=== PATIENT | female | born 1940 | race Caucasian/White ===

== ENCOUNTER 2016-12-05 13:37 | Inpatient (IN) ==
[2016-12-05 15:07] LABS: BLOOD TYPE ARTERIAL; SAMPLE BLOOD
[2016-12-05 15:08] LABS: ALLEN TEST NO; BE 9.4 mmoll (-3.0-3.0); DRAW SITE R BRACHIAL; METHB 2.1 % (0.0-1.5); MODALITY CANNULA; O2(CT) 13.4 mL/dL (15.0-23.0); PCO2(98.6) 47 mmHg (35-45); PO2(98.6) 62 mmHg (60-100); SAO2 96.4 % (95.0-100.0); THB 10.2 g/dL (11.5-17.4); pH(98.6) 7.47 (7.35-7.45)
[2016-12-05 15:09] LABS: MANUAL DIFF NEEDED? NO
[2016-12-05 15:12] LABS: BASO% 0.4 % (0.0-0.8); EOS# 0.01 X1000 (0.0-0.7); EOS% 0.1 % (0.0-10.0); HEMATOCRIT 32.2 % (37.0-47.0); HEMOGLOBIN 10.1 g/dL (12.0-16.0); IMM GRAN# 0.24 X1000 (0.0-0.04); IMM GRAN% 3.3 % (0.0-0.5); LYMPH# 1.29 X1000 (1.2-3.4); LYMPH% 17.7 % (20.5-51.1); MCH 26.3 PG (27-31); MCHC 31.4 g/dL (33-37); MCV 83.9 FL (81-99); MONO% 13.7 % (1.7-9.3); MPV 8.8 FL (7.4-10.4); NEUT% 64.8 % (42.2-75.2); PLT 312 X1000 (130-400); RBC 3.84 XMIL (4.2-5.4)
[2016-12-05 15:21] LABS: INR 1.01; PROTIME 10.6 Seconds (9.2-11.7); PTT 28.5 Seconds (22.0-36.0)
[2016-12-05 15:26] LABS: URINE CULTURE NEEDED? NO; URINE MICRO REVIEW NEEDED? NO; URINE SOURCE CLEAN CATCH
[2016-12-05 15:28] LABS: BILIRUBIN URINE NEGATIVE (NEGATIVE); BLOOD URINE NEGATIVE (NEGATIVE); COLOR STRAW; GLUCOSE URINE NEGATIVE (NEGATIVE); LEUKOCYTES URINE NEGATIVE (NEGATIVE); NITRITE URINE NEGATIVE (NEGATIVE); PH URINE 6.5; PROTEIN URINE NEGATIVE (NEGATIVE); SP GRAVITY URINE 1.004; TURBIDITY URINE CLEAR (CLEAR); UROBILINOGEN URINE NORMAL (NORMAL)
[2016-12-05 15:30] LABS: UR EPITHELIAL CELLS <10 /HPF (<10); URINE BACTERIA NEGATIVE /HPF; URINE RBC <10 /HPF (<10); URINE WBC <10 /HPF (<10)
[2016-12-05 15:30] LABS: AGAP 11; ALBUMIN 3.3 g/dL (3.5-5.0); ALKALINE PHOSPHATASE 74 U/L (32-104); BUN 12 mg/dL (8-22); CALCIUM 9.3 mg/dL (8.8-10.2); CHLORIDE 98 mmol/L (98-107); CK PROFILE 26 U/L (24-173); COSMO 282; GOT 20 U/L (10-30); GPT 17 U/L (10-36); MAGNESIUM 1.9 mg/dL (1.5-2.7); POTASSIUM 3.4 mmol/L (3.5-5.1); SODIUM 140 mmol/L (136-145); TCO2 31 mmol/L (25-35); TOTAL BILIRUBIN 0.23 mg/dL (0.20-1.00); TOTAL PROTEIN 6.9 g/dL (6.3-8.3)
[2016-12-05] MEDS ORDERED: DUONEB (A & A) INH ONE (15:41)
[2016-12-05] MEDS ORDERED: SOLU-MEDROL IV ONE (15:41)
[2016-12-05] MEDS ORDERED: ROCEPHIN 1 GM/NS 1 GM/50 ML IVPB IV ONE (15:41)
--- NOTE | 2016-12-05 15:45 | Diag Imaging Result Document ---
PROCEDURE NAME: CHEST-2 VIEWS - 12/05/2016 PA AND LATERAL RADIOGRAPH OF THE CHEST: COMPARISON: 09/15/2016. FINDINGS: There is an infiltrate at the right lower lung zone and right mid lung zone suggesting edema, plus or minus pneumonia. There is no definite pleural fluid collection. Cardiac silhouette is grossly unremarkable. IMPRESSION: 1. Infiltrate at the right mid and lower lung zone as described. Follow-up chest radiograph is recommended. 2. Not mentioned above, there is stable focal pleural thickening at the right lung apex.
[2016-12-05] MEDS ORDERED: NORCO-7.5 PO ONE (15:57)
[2016-12-05] MEDS ORDERED: ZOFRAN IV ONE (15:57)
--- NOTE | 2016-12-05 16:47 | PROVIDER DOCUMENTATION ---
This chart was entered by Latoya Remy Scribe, acting as scribe for Sulema Bartlett MD. HPI-General Adult - General Chief Complaint: Cough Stated Complaint: PNEUMONIA SX Time Seen by Provider: 12/05/16 13:43 Source: patient Allergies/Adverse Reactions: Patient Allergies Allergy/AdvReac Type Severity Reaction Status Date / Time propoxyphene HCl * Allergy Mild NAUSEA/VOMI Verified 12/05/16 14:12 [From Darvon] TING ciprofloxacin [From Cipro] Allergy RASH Verified 12/05/16 14:12 ciprofloxacin HCl * Allergy RASH Verified 12/05/16 14:12 [From Cipro] Home Medications: Home Medication List Medication Instructions Recorded Confirmed Last Taken Type SIMVAstatin [Zocor] 40 mg PO QHS 04/30/13 12/05/16 12/05/16 08:00 History Gabapentin [Neurontin] 300 mg PO TID 07/22/13 12/05/16 12/05/16 08:00 History Metformin E.r. [Glucophage Xr] 500 mg PO BID CC 12/23/15 12/05/16 12/05/16 08: 00 History Omeprazole [Prilosec] 40 mg PO DAILY@0700 #0 capsule 12/31/15 12/05/16 12/05/16 08:00 Rx Insulin Glargine [Lantus] 22 unit SUBQ QAM 08/23/16 12/05/16 12/05/16 08:00 History Clonazepam 0.5 mg PO BID 12/05/16 12/05/16 12/05/16 08:00 History Donepezil [Aricept] 10 mg PO DAILY 12/05/16 12/05/16 12/05/16 08:00 History Memantine [Namenda] 10 mg PO DAILY 12/05/16 12/05/16 12/05/16 08:00 History Metoprolol Succinate E.r. [Toprol 50 mg PO DAILY 12/05/16 12/05/16 12/05/16 08: 00 History Xl] Mirtazapine [Remeron] 15 mg PO DAILY 12/05/16 12/05/16 12/05/16 08:00 History Potassium 1 meq PO DAILY 12/05/16 12/05/16 12/05/16 08:00 History Raloxifene [Evista] 60 mg PO DAILY 12/05/16 12/05/16 12/05/16 08:00 History Venlafaxine E.r. [Effexor Xr] 75 mg PO DAILY 12/05/16 12/05/16 12/05/16 08:00 History - History of Present Illness -Gen Adult Nature of Presenting Problems: PT IS A 75YOF PRESENTING TO THE ED C/O SOB. PT STATES SHE WAS SEEN AT PCP OFFICE ON TUESDAY AND DX WITH PNEUMONIA. PCP GAVE HER LEVAQUIN AND SHE REFUSED ADMISSION. TODAY HER COUGHING AND SOB HAS INCREASED, SUBJECTIVE FEVER AT HOME AND MORE SOB. PT DENIES CP, N./V/D AT THIS TIME Location of Pain/Injury: reports: generalized Pain Radiation: reports: no radiation Quality of Pain: reports: fullness Severity: reports: mild, moderate Onset/Duration: reports: gradual, 3 days ago Timing: reports: still present, changing over time Context/Activities at Onset: reports: light activity Modifying Factors: improves with: nothing Associated Symptoms: reports: cough, fatigue, fever/chills, malaise, sinus congestion/drainage, shortness of breath, weakness. denies: arm pain, back/ neck pain, chest pain, EENT symptoms, nausea, swelling/mass in abdomen, vomiting , trouble walking Similar Symptoms Previously?: Yes Recently seen or treated by another doctor?: Yes (RAC[facility]) Review of Systems - Adult - REVIEW OF SYSTEMS - ADULT Constitutional: reports: see HPI, chills, fever. denies: night sweats Eyes: reports: no symptoms reported Ears, Nose, Mouth & Throat: reports: see HPI, sinus problem. denies: hearing loss, loose teeth, throat pain Cardiovascular: reports: no symptoms reported Respiratory: reports: see HPI, chronic cough, dyspnea on exertion, excessive sputum production, shortness of breath Gastrointestinal: reports: no symptoms reported Genitourinary: reports: no symptoms reported Musculoskeletal: reports: no symptoms reported Integumentary: reports: no symptoms reported Neurological: reports: no symptoms reported Psychiatric: reports: no symptoms reported Endocrine: reports: no symptoms reported Hematologic/Lymphatic: reports: no symptoms reported Allergic/Immunologic: reports: no symptoms reported All Other Systems: Reviewed and Negative Past History - Adult - PAST MEDICAL HISTORY-ADULT Review of Records: reports: Old Records Reviewed, Nursing Assessment Review, Medications Reviewed, Social history reviewed & non-contributory. Major Childhood Illnesses: reports: denies history Cardiovascular: reports: HTN, hyperlipidemia Respiratory: reports: asthma, COPD (on 2.5 liters [place] O2), pneumonia, other ( chronic respiratory failure) Gastrointestinal: reports: GERD, other (gastritis) Obstetrical/Gynecological: reports: denies history Genitourinary: reports: denies history Musculoskeletal: reports: arthritis, osteoporosis Neurological: reports: dementia Psychiatric: reports: depression Endocrine/Immune: reports: other (hypokalemia) Other Conditions: reports: denies history - PRIOR SURGERIES/PROCEDURES Surgical/Procedure History: reports: appendectomy, colonoscopy, hysterectomy, BTL, orthopedic (extremity) (Hip fx, alejandro arms Sx), other (pelvis Sx) - IMMUNIZATION STATUS Childhood Immunizations: See Nurse Assessment Flu Vaccine: See Nurse Assessment - FAMILY HISTORY Family History: reviewed, not pertinent - SOCIAL HISTORY Smoking: denies, quit greater than 1 year Substance Use: none/never, denies Alcohol Use Frequency: never Living Situation: family Physical Exam-General - PHYSICAL EXAM-ADULT Initial Vital Signs Reviewed: Yes - CONSTITUTIONAL General Appearance: appears well, alert, mild distress, anxious. negative: no apparent distress - EYES Eyes: PERRL/EOMI, pink conjunctivae - HEAD, EARS, NOSE, MOUTH & THROAT HENMT: normocephalic/atraumatic, moist mucous membranes, normal ENT inspection, TMs normal, pharynx normal - NECK Neck: non-tender, full range of motion, supple, normal inspection - RESPIRATORY Respiratory: chest non-tender, no pleuratic chest pain, no accessory muscle use , respiratory distress, decreased breath sounds, dull on percussion. negative: lungs clear, normal breath sounds, no respiratory distress - CARDIOVASCULAR Cardiovascular: normal peripheral pulses, regular rate, rhythm, no edema, no gallop, no JVD, no murmur - GASTROINTESTINAL (ABDOMEN) Abdominal Exam: normal bowel sounds, non tender, soft, no organomegaly, no pulsatile mass - LYMPHATIC Lymphatic: no adenopathy - MUSCULOSKELETAL Back Exam: normal inspection, no CVA tenderness, no vertebral tenderness Extremity: normal range of motion, non-tender, normal gait, normal inspection, no pedal edema, no calf tenderness, normal capillary refill, pelvis stable - SKIN Integumentary: normal color, normal turgor, warm/dry - NEUROLOGIC Neurologic: trade embalmer II-XII nml as tested, grossly normal, no motor/sensory deficits - PSYCHIATRIC Psych/Mental Status: normal thought content, normal thought process, oriented x 3. negative: normal mood/affect Progress - PLAN OF CARE/RESULTS Progress/Plan/Lab Results: Vital Signs - 8 hr 12/05/16 13:42 Temperature 97.7 F Pulse Rate 77 Respiratory Rate 20 Blood Pressure 142/58 O2 Sat by Pulse Oximetry 96 Result Diagrams: 12/05/16 14:36 12/05/16 14:36 - CONSULTS/PCP/HOSPITALIST Notification Time Discussed: 16:45 Reason/Comments: Admit to Dr. Olivares Consult Disposition: Admit Departure - Departure Time of Disposition Decision: 16:46 DIAGNOSIS: SOB (shortness of breath) Pneumonia Qualifiers: Pneumonia type: due to unspecified organism Laterality: right Lung location: unspecified part of lung Qualified Code(s): J18.9 - Pneumonia, unspecified organism Disposition: ADMITTED INPATIENT 09 Certified Medical Emergency: Emergent Condition: Stable Referrals and Follow-Ups: Sherif Olivares MD [Primary Care Provider] - - Critical Care Note This patient required my direct & personal management of CC.: No This chart was documented by the indicated scribe, (Latoya Remy Scribe) and accurately reflects the services I performed and decisions made by me, Sulema Bartlett MD, as attested by the provider's signature.
[2016-12-05] MEDS ORDERED: NORCO-7.5 PO PRN (17:57)
--- NOTE | 2016-12-05 18:51 | HISTORY AND PHYSICAL ---
CHIEF COMPLAINT: Shortness of breath. Ms. Torres is a 75-year-old female patient complaining of chest congestion, cough, expectoration going on for a week. She had low-grade fever, chills, expectoration was yellowish in color. I evaluated patient in my office on Tuesday. The patient was acutely ill. Offered her hospitalization, but patient refused. Started her on antibiotics, tapering dose of steroid. The patient was taking medication, but patient claims she was not getting better. She was getting more short of breath. She also had some nausea, more shortness of breath, low-grade fever. The patient came to the emergency room. Evaluated by ER physician. The patient was in mild to moderate respiratory distress and they decided to admit the patient for further care. The patient had vague chest pain which was atypical, she denied any hemoptysis she was getting short of breath with undue exertion. The patient had nausea. No vomiting. Oral intake was poor. She denied any diarrhea. No blood or mucus in the stool. Denied any dysuria or hematuria. Complaining of pain in the left arm. Patient had compound fracture many years ago. The patient claimed at times her arm acts up and causes pain. No heat or cold intolerance. At times polyuria, polydipsia. The patient does have a history of diabetes. No major hypoglycemic episode. The patient was feeling fatigued and tired. No focal weakness. The patient does have neuropathic pain in the feet. No further history available at this time. ALLERGIES: Propoxyphene. Cipro. PAST MEDICAL HISTORY: Significant for advanced COPD, chronic respiratory failure, hypertension, hyperlipidemia, gastritis, osteoarthritis, osteoporosis, fractured hip, fracture of the radial bone, situational depression and anxiety. PERSONAL HISTORY: . Lives with the . Quit smoking a few years ago. Denied alcohol or substance abuse. HOME MEDICATION: Klonopin. Aricept. Namenda. Lantus insulin. Neurontin. Glucophage. Toprol. Remeron. Prilosec. Potassium. Evista. Zocor. Effexor. FAMILY HISTORY: Significant for diabetes, hypertension, hyperlipidemia, gastritis. REVIEW OF SYSTEMS: As per HPI. PHYSICAL EXAMINATION: GENERAL: Elderly white female patient, in mild distress. VITAL SIGNS: On admission, blood pressure 142/58, pulse 77, respirations 20, temperature 97.7 degrees. SKIN: Senile turgor. No rash or petechiae. HEENT: Head atraumatic, normocephalic. [facility] conjunctivae. Anicteric sclerae. Extraocular muscle movement normal. Fundus cannot be penetrated. Good oral hygiene. No tonsillopharyngeal congestion or exudate. Ears and nose benign. NECK: Supple. No JVD, thyromegaly or lymphadenopathy. CHEST: Bilateral expiratory wheezing. No rales. No movement of accessory muscles of respiration at rest. CARDIOVASCULAR: S1 and S2 heard. No gallop or thrill. ABDOMEN: Soft. No distention. Mild epigastric tenderness. No guarding or rigidity. EXTREMITIES: No cyanosis, clubbing or acute DVT. ENROLLMENT NURSE: Alert, awake, able to move all 4 limbs. LABORATORY DATA/IMAGING: Revealed urinalysis was benign. Electrolytes: Potassium was 3.4. ProBNP was 777, cardiac isoenzymes were negative. Blood gas: PH 7.47, pCO2 of 47, PO2 was 62. This was done on 2 L via nasal cannula. PT PTT normal. D-dimer was 1.08. CBC: Results reviewed. Her chest x-ray revealed infiltrate at the right mid and lower lung zone. IMPRESSION: Multilobar pneumonia. Chronic obstructive pulmonary disease exacerbation. The patient does have history suggestive of pulmonary fibrosis. Patient was not responding to outpatient treatment. Her other problem includes gastritis and reflux disease, insulin-dependent diabetes mellitus, nausea, osteoporosis, hyperlipidemia, headache. PLAN: Admit the patient. IV antibiotics. Bronchodilator treatment. Pulmonary toilet. Monitor Accu-Chek. Deep venous thrombosis prophylaxis. Overall plan discussed with the patient and she is in agreement. We will monitor for hypoglycemia. cc: Sherif Olivares MD
[2016-12-05] MEDS ORDERED: POTASSIUM 20 MEQ PO SCH (21:00)
[2016-12-05] MEDS ORDERED: KLONOPIN PO SCH (21:00)
[2016-12-05] MEDS ORDERED: HUMALOG SUBQ SCH (21:00)
[2016-12-05] MEDS: HUMALOG SUBQ SCH (21:55)
[2016-12-05] MEDS: NORCO-7.5 PO PRN (21:55)
[2016-12-05] MEDS: ZOFRAN IV PRN (22:02)
[2016-12-05] MEDS: ZOCOR PO SCH (22:02)
[2016-12-05] MEDS: KLONOPIN PO SCH (22:03)
[2016-12-05] MEDS: NAMENDA PO SCH (22:03)
[2016-12-05] MEDS: NEURONTIN PO SCH (23:30)
[2016-12-06] MEDS ORDERED: PNEUMOVAX 23 IM ONE (00:09)
[2016-12-06] MEDS: SOLU-MEDROL IV SCH ×2 (05:17→16:04)
[2016-12-06] MEDS: HUMALOG SUBQ SCH ×4 (06:34→20:04)
[2016-12-06] MEDS: PRILOSEC PO SCH (06:35)
[2016-12-06] MEDS ORDERED: INSULIN PEN NEEDLES ONE (07:19)
--- NOTE | 2016-12-06 07:21 | PROGRESS NOTE ---
DATE: 12/06/2016 SUBJECTIVELY: Ms. Torres is doing fair. The patient does have a cough, chest congestion, wheezing, expectoration. No high-grade fever or chills. She denied any nausea or vomiting. Her O2 saturation is staying low. Patient does have at times headache associated with nausea, requiring pain medicine and Zofran. No diarrhea. Patient admitted with COPD exacerbation. Chest x-ray showing bronchopneumonia. Patient does have pulmonary fibrosis. OBJECTIVE: Vital signs: Reviewed. Neck: Supple. No JVD. Lungs: Bilateral occasional wheezing. CVS: S1 and S2 heard. Abdomen: Soft, nontender. Bowel sounds present. Extremities: No cyanosis, clubbing. No acute DVT. NURSING AIDE: Alert, awake. Able to move all 4 limbs. LAB DATA: Done on admission reviewed. A.m. blood work is pending. ASSESSMENT AND PLAN: We will check appropriate labs. Continue current treatment. Fall precaution. Pulmonary toilet. Monitor Accu-Chek. Overall plan discussed with the patient and she is in agreement. cc: Sherif Olivares MD
[2016-12-06] MEDS: MUCOMYST 20% INH SCH ×2 (07:26→19:25)
[2016-12-06] MEDS: DUONEB (A & A) INH SCH ×5 (07:26→23:30)
[2016-12-06 07:39] LABS: BASO% 0.2 % (0.0-0.8); HEMATOCRIT 31.2 % (37.0-47.0); HEMOGLOBIN 9.6 g/dL (12.0-16.0); IMM GRAN# 0.21 X1000 (0.0-0.04); IMM GRAN% 3.7 % (0.0-0.5); LYMPH# 0.59 X1000 (1.2-3.4); LYMPH% 10.3 % (20.5-51.1); MANUAL DIFF NEEDED? YES; MCH 25.9 PG (27-31); MCHC 30.8 g/dL (33-37); MCV 84.1 FL (81-99); MONO# 0.26 X1000 (0.11-0.59); MONO% 4.5 % (1.7-9.3); MPV 9.2 FL (7.4-10.4); NEUT% 81.3 % (42.2-75.2); PLT 292 X1000 (130-400); RBC 3.71 XMIL (4.2-5.4)
[2016-12-06 08:03] LABS: AGAP 13; ALBUMIN 3.3 g/dL (3.5-5.0); ALKALINE PHOSPHATASE 70 U/L (32-104); BUN 15 mg/dL (8-22); CALCIUM 9.3 mg/dL (8.8-10.2); CHLORIDE 98 mmol/L (98-107); COSMO 286; GOT 17 U/L (10-30); GPT 16 U/L (10-36); POTASSIUM 4.2 mmol/L (3.5-5.1); SODIUM 140 mmol/L (136-145); TCO2 29 mmol/L (25-35); TOTAL BILIRUBIN 0.14 mg/dL (0.20-1.00); TOTAL PROTEIN 7.2 g/dL (6.3-8.3)
[2016-12-06 08:23] LABS: LYMPHS 8 % (21-51); MONO 6 % (1-9)
[2016-12-06] MEDS ORDERED: NEURONTIN PO SCH (09:00)
[2016-12-06] MEDS ORDERED: POTASSIUM PO SCH (09:00)
[2016-12-06] MEDS: REMERON PO SCH (09:06)
[2016-12-06] MEDS: KLOR-CON PO SCH ×3 (09:06→23:49)
[2016-12-06] MEDS: EVISTA PO SCH (09:06)
[2016-12-06] MEDS: KLONOPIN PO SCH ×2 (09:06→20:04)
[2016-12-06] MEDS: NEURONTIN PO SCH ×4 (09:06→23:49)
[2016-12-06] MEDS: EFFEXOR XR PO SCH (09:06)
[2016-12-06] MEDS: DOXYCYCLINE PO SCH ×3 (09:06→23:48)
[2016-12-06] MEDS: TOPROL XL PO SCH (09:06)
[2016-12-06] MEDS: NAMENDA PO SCH ×3 (09:06→23:49)
[2016-12-06] MEDS: ARICEPT PO SCH (09:07)
[2016-12-06] MEDS: GLUCOPHAGE XR PO SCH ×2 (09:07→16:06)
[2016-12-06] MEDS: LANTUS SUBQ SCH (09:24)
[2016-12-06] MEDS: LOVENOX SUBQ SCH (09:35)
[2016-12-06] MEDS: NORCO-7.5 PO PRN ×2 (12:44→19:53)
[2016-12-06] MEDS: ZOFRAN IV PRN ×2 (12:44→19:54)
[2016-12-06] MEDS: ROCEPHIN 1 GM/NS 1 GM/50 ML IVPB IV SCH (16:05)
[2016-12-06] MEDS: ZOCOR PO SCH ×2 (19:53→23:49)
[2016-12-07] MEDS: DUONEB (A & A) INH SCH ×6 (03:13→23:09)
[2016-12-07] MEDS: SOLU-MEDROL IV SCH ×2 (04:19→17:54)
[2016-12-07] MEDS: ZOFRAN IV PRN ×4 (04:58→20:23)
[2016-12-07] MEDS: NORCO-7.5 PO PRN ×4 (05:43→20:24)
[2016-12-07] MEDS: HUMALOG SUBQ SCH ×4 (06:00→20:23)
[2016-12-07] MEDS: PRILOSEC PO SCH (06:01)
--- NOTE | 2016-12-07 09:33 | PROGRESS NOTE ---
DATE: 12/07/2016 SUBJECTIVE: Ms. Torres is doing fair. The patient still has significant cough, expectoration, complaining of mild nausea, no vomiting. She denied any high grade fever or chills. She does get short of breath with exertion. Known case of COPD. The patient did have pulmonary fibrosis. OBJECTIVE: Her vital signs were noted. Neck: Supple. No JVD. Lungs: Bilateral good air entry present. Occasional wheezing. CVS: S1 and S2 heard. Abdomen: Soft, globular. Bowel sounds present. FACTORY HAND: Alert and awake, able to move all 4 limbs. No acute DVT. CONSIDERATION: 1. Chronic obstructive pulmonary disease exacerbation, possible pneumonia. The patient had pulmonary fibrosis. I am going to get CT of the chest for further evaluation. 2. Gastritis. 3. Chronic pain. 4. Diabetes mellitus. The patient's labs and medications were noted. Overall plan discussed with the patient, and she is in agreement. cc: Sherif Olivares MD
--- NOTE | 2016-12-07 09:45 | Diag Imaging Result Document ---
PROCEDURE NAME: CT THORAX W/O CONTRAST - 12/07/2016 CT CHEST WITHOUT CONTRAST: TECHNIQUE: Dose-reduction protocol. COMPARISON: Compared to 12/24/2015. FINDINGS: There is trace pleural fluid similar to the prior exam. The heart is borderline mildly prominent. No thoracic aortic aneurysm. There is small mediastinal lymph nodes. There is scarring in the right apex similar to the prior exam. There are tiny multifocal nodular patchy infiltrates similar to the prior exam. Inferiorly are more confluent patchy infiltrate which also have an appearance similar to the prior exam. Borderline mild bronchial wall thickening. A small amount of atelectasis is found in the lower lungs. IMPRESSION: There has been very little change in the appearance of the chest compared to the prior exam.
[2016-12-07] MEDS: DOXYCYCLINE PO SCH ×2 (11:08→20:23)
[2016-12-07] MEDS: NAMENDA PO SCH ×2 (11:08→20:23)
[2016-12-07] MEDS: GLUCOPHAGE XR PO SCH ×2 (11:08→17:55)
[2016-12-07] MEDS: TOPROL XL PO SCH (11:08)
[2016-12-07] MEDS: KLONOPIN PO SCH ×2 (11:08→20:23)
[2016-12-07] MEDS: EFFEXOR XR PO SCH (11:09)
[2016-12-07] MEDS: ARICEPT PO SCH (11:09)
[2016-12-07] MEDS: REMERON PO SCH (11:09)
[2016-12-07] MEDS: NEURONTIN PO SCH ×3 (11:09→17:55)
[2016-12-07] MEDS: KLOR-CON PO SCH ×2 (11:09→20:23)
[2016-12-07] MEDS: EVISTA PO SCH (11:09)
[2016-12-07] MEDS: LOVENOX SUBQ SCH (11:10)
[2016-12-07] MEDS: LANTUS SUBQ SCH (11:10)
[2016-12-07] MEDS: MUCOMYST 20% INH SCH ×2 (11:30→19:25)
[2016-12-07] MEDS: ROCEPHIN 1 GM/NS 1 GM/50 ML IVPB IV SCH (17:53)
[2016-12-07] MEDS: ZOCOR PO SCH (20:23)
[2016-12-08] MEDS: ZOFRAN IV PRN ×4 (00:32→23:39)
[2016-12-08] MEDS: DUONEB (A & A) INH SCH ×6 (03:03→22:42)
[2016-12-08] MEDS: NORCO-7.5 PO PRN ×4 (03:50→23:39)
[2016-12-08] MEDS: SOLU-MEDROL IV SCH ×2 (03:50→18:19)
[2016-12-08] MEDS: HUMALOG SUBQ SCH ×4 (06:11→21:28)
[2016-12-08] MEDS ORDERED: LASIX IV ONE (07:08)
[2016-12-08] MEDS: PRILOSEC PO SCH (07:16)
[2016-12-08] MEDS: MUCOMYST 20% INH SCH ×2 (07:40→19:29)
--- NOTE | 2016-12-08 07:58 | PROGRESS NOTE ---
DATE: 12/08/2016 SUBJECTIVE: Ms. Torres is doing better. The patient still has a cough with scanty sputum production. No high-grade fever or chills. Sputum culture is normal isidro. Blood culture is negative. Patient was complaining of diarrhea. She did have a history of C. difficile colitis. I am going to check stool for C. difficile toxin. Chest congestion and cough some better. The patient does feel weak. OBJECTIVE: Vital signs: Noted. Neck: Supple. No JVD. Lungs: Bilateral good air entry present. Occasional wheezing. CVS: S1 and S2 heard. Abdomen: Soft, nontender. Bowel sounds present. Extremities: No cyanosis, clubbing. No acute DVT. SAFETY ENGINEER: Alert, awake. Able to move all 4 limbs. CONSIDERATION: The patient's problems include: 1. Chronic obstructive pulmonary disease exacerbation. I did a CT scan of the chest. Results reviewed and discussed with the patient. 2. Diabetes mellitus. 3. Hypertension. 4. Hyperlipidemia. 5. Diarrhea. PLAN: Plan is to continue current treatment and close observation. Her blood work done yesterday, on December 06, reviewed. Overall plan discussed with the patient and she is in agreement. cc: Sherif Olivares MD
[2016-12-08] MEDS: KLONOPIN PO SCH ×2 (08:31→21:28)
[2016-12-08] MEDS: GLUCOPHAGE XR PO SCH ×2 (08:32→18:18)
[2016-12-08] MEDS: ARICEPT PO SCH (08:32)
[2016-12-08] MEDS: NEURONTIN PO SCH ×3 (08:33→18:18)
[2016-12-08] MEDS: DOXYCYCLINE PO SCH ×2 (08:33→21:28)
[2016-12-08] MEDS: REMERON PO SCH (08:33)
[2016-12-08] MEDS: NAMENDA PO SCH ×2 (08:33→21:28)
[2016-12-08] MEDS: KLOR-CON PO SCH ×2 (08:33→21:28)
[2016-12-08] MEDS: TOPROL XL PO SCH (08:33)
[2016-12-08] MEDS: LANTUS SUBQ SCH (08:34)
[2016-12-08] MEDS: LOVENOX SUBQ SCH (08:34)
[2016-12-08] MEDS: EFFEXOR XR PO SCH (08:34)
[2016-12-08] MEDS: EVISTA PO SCH (08:34)
[2016-12-08] MEDS: REGLAN PO SCH ×2 (12:12→18:19)
[2016-12-08] MEDS: ROCEPHIN 1 GM/NS 1 GM/50 ML IVPB IV SCH (18:19)
[2016-12-08] MEDS: ZOCOR PO SCH (21:28)
[2016-12-09] MEDS: DUONEB (A & A) INH SCH ×3 (03:54→11:28)
[2016-12-09] MEDS: ZOFRAN IV PRN ×2 (05:10→10:49)
[2016-12-09] MEDS: NORCO-7.5 PO PRN ×2 (05:11→10:49)
[2016-12-09] MEDS: SOLU-MEDROL IV SCH (05:11)
[2016-12-09] MEDS: HUMALOG SUBQ SCH ×2 (06:47→11:59)
[2016-12-09] MEDS: PRILOSEC PO SCH (06:48)
[2016-12-09 07:16] LABS: MANUAL DIFF NEEDED? NO
[2016-12-09 07:28] LABS: BASO% 0.1 % (0.0-0.8); EOS# 0.01 X1000 (0.0-0.7); EOS% 0.1 % (0.0-10.0); HEMATOCRIT 33.3 % (37.0-47.0); HEMOGLOBIN 10.3 g/dL (12.0-16.0); IMM GRAN# 0.21 X1000 (0.0-0.04); IMM GRAN% 2.1 % (0.0-0.5); LYMPH# 1.11 X1000 (1.2-3.4); LYMPH% 11.3 % (20.5-51.1); MCH 25.9 PG (27-31); MCHC 30.9 g/dL (33-37); MCV 83.9 FL (81-99); MONO# 0.46 X1000 (0.11-0.59); MONO% 4.7 % (1.7-9.3); NEUT% 81.7 % (42.2-75.2); PLT 390 X1000 (130-400); RBC 3.97 XMIL (4.2-5.4)
[2016-12-09] MEDS: MUCOMYST 20% INH SCH (07:36)
[2016-12-09 07:44] VITALS: BP 146/62
[2016-12-09] MEDS: KLOR-CON PO SCH (08:05)
[2016-12-09] MEDS: TOPROL XL PO SCH (08:06)
[2016-12-09] MEDS: DOXYCYCLINE PO SCH (08:06)
[2016-12-09] MEDS: ARICEPT PO SCH (08:06)
[2016-12-09] MEDS: NEURONTIN PO SCH (08:06)
[2016-12-09] MEDS: GLUCOPHAGE XR PO SCH (08:06)
[2016-12-09] MEDS: NAMENDA PO SCH (08:06)
[2016-12-09] MEDS: REMERON PO SCH (08:06)
[2016-12-09] MEDS: EFFEXOR XR PO SCH (08:06)
[2016-12-09] MEDS: LOVENOX SUBQ SCH (08:07)
[2016-12-09] MEDS: LANTUS SUBQ SCH (08:07)
[2016-12-09] MEDS: EVISTA PO SCH (08:08)
[2016-12-09] MEDS: ROCEPHIN 1 GM/NS 1 GM/50 ML IVPB IV SCH (08:08)
[2016-12-09 08:16] LABS: AGAP 9; ALBUMIN 3.4 g/dL (3.5-5.0); ALKALINE PHOSPHATASE 68 U/L (32-104); BUN 27 mg/dL (8-22); CALCIUM 9.5 mg/dL (8.8-10.2); CHLORIDE 94 mmol/L (98-107); COSMO 279; GOT 28 U/L (10-30); GPT 28 U/L (10-36); MAGNESIUM 1.9 mg/dL (1.5-2.7); POTASSIUM 4.9 mmol/L (3.5-5.1); SODIUM 136 mmol/L (136-145); TCO2 33 mmol/L (25-35); TOTAL BILIRUBIN 0.13 mg/dL (0.20-1.00); TOTAL PROTEIN 6.1 g/dL (6.3-8.3)
[2016-12-09] MEDS: KLONOPIN PO SCH (10:50)
--- NOTE | 2016-12-09 22:04 | DISCHARGE SUMMARY ---
ADMISSION DATE: 12/05/2016 DISCHARGE DATE: 12/09/2016 FINAL DISCHARGE DIAGNOSES: 1. Acute exacerbation of Chronic obstructive pulmonary disease, pneumonia, chronic respiratory failure. 2. Insulin-dependent diabetes mellitus. 3. Hypertension. 4. Chronic pain. 5. Osteoarthritis. 6. Hyperlipidemia. 7. Gastritis. 8. Dementia. 9. Situational anxiety. 10. Menopause. HISTORY OF PRESENT ILLNESS: Ms. Torres is a 75-year-old, white female patient admitted with chest congestion, cough, expectoration, feverish feeling, increasing shortness of breath not responding to outpatient treatment. I evaluated patient in the office and offered her hospitalization at that time, but patient refused. After going home patient was getting more short of breath, more sick. She came to the emergency room. Chest x-ray did reveal possible pneumonia. The patient was more short of breath, in mild respiratory distress. Evaluated by ER physician and admitted for further care. HOSPITAL COURSE: The patient was treated with IV antibiotics, pulmonary toilet, bronchodilator treatment, symptomatic care. The patient did have a headache requiring pain medicine and she also had some nausea. Her clinical condition gradually improved. We monitored her Accu-Chek. Patient did fairly well. She is doing better. Shortness of breath improving. Hospital course complicated by diarrhea. I did stool for C. difficile toxin. WBC and those were negative. Overall patient is doing better and I am planning to discharge her home today. PHYSICAL EXAMINATION ON DISCHARGE: Vital signs: Noted. Neck: Supple. No JVD. Lungs: Bilateral good air entry present. Occasional wheezing. Cardiovascular: S1 and S2 heard. Abdomen: Soft, nontender. Bowel sounds present. Extremities: No cyanosis, clubbing. No acute DVT. Central Nervous System: Alert, awake. Able to move all 4 limbs. LAB DATA: Last hemoglobin 9.6, hematocrit 31.2, platelet count was 292,000, WBC count 5.75. Her electrolytes were fairly stable. I did CT scan of the chest and results reviewed. The patient had blood work ordered for today. Result is not available yet. I am going to check those results. DISCHARGE INSTRUCTIONS: 1. I am going to send patient home on tapering dose of prednisone and doxycycline. 2. Advised to monitor Accu-Chek at home. 3. Fall precautions. 4. Use oxygen and nebulizer treatment. 5. Follow up with me in a week. 6. I am going to give her today's dose of Rocephin now. OVERALL DISCHARGE CONDITION: Satisfactory. cc: Sherif Olivares MD
== END 2016-12-09 12:07 | disposition home or self-care (01) ==
LOC: ED 13:37 → EDIPHOLD 17:41 → 3N 20:39
PROVIDERS: ADMIT Internal Medicine; ATTEND Internal Medicine

== ENCOUNTER 2018-07-28 14:32 | Observation (INO) ==
[2018-07-28] MEDS ORDERED: SOLU-MEDROL IV ONE (15:15)
--- NOTE | 2018-07-28 15:24 | EKG Report ---
Test Performed on : 07/28/2018 3:07:41 PM Test Reason : sob,copd Blood Pressure : / mmHG Vent. Rate : 086 BPM Atrial Rate : 086 BPM P-R Int : 148 ms QRS Dur : 084 ms QT Int : 386 ms P-R-T Axes : 037 031 027 degrees QTc Int : 461 ms Normal sinus rhythm. Normal ECG When compared with ECG of 03-DEC-2017 01:08, (Unconfirmed) Nonspecific T wave abnormality now evident in Inferior leads Confirmed by Marichuy BLANCHARD, Fritz Larose ([id number]) on 07/29/2018 9:23:26 AM
[2018-07-28 15:55] LABS: ALLEN TEST YES; BE 4.3 mmoll (-3.0-3.0); BLOOD TYPE ARTERIAL; HCO3-(ACT) 28.1 mmoll (20.0-26.0); O2(CT) 15.5 mL/dL (15.0-23.0); PCO2(98.6) 44 mmHg (35-45); PO2(98.6) 58 mmHg (60-100); SAMPLE BLOOD; SAO2 92.1 % (95.0-100.0); THB 12.3 g/dL (11.5-17.4); pH(98.6) 7.43 (7.35-7.45)
[2018-07-28 15:59] LABS: MODALITY ROOM AIR; O2HB 89.8 % (95.0-99.0)
[2018-07-28] MEDS: DUONEB (A & A) INH SCH ×3 (16:06→23:35)
[2018-07-28 16:10] LABS: BASO# 0.01 X1000 (0.0-0.2); BASO% 0.1 % (0.0-0.8); EOS# 0.17 X1000 (0.0-0.7); EOS% 2.3 % (0.0-10.0); HEMATOCRIT 38.9 % (37.0-47.0); HEMOGLOBIN 11.8 g/dL (12.0-16.0); IMM GRAN# 0.02 X1000 (0.0-0.04); IMM GRAN% 0.3 % (0.0-0.5); LYMPH% 14.9 % (20.5-51.1); MCH 24.4 PG (27-31); MCHC 30.3 g/dL (33-37); MCV 80.4 FL (81-99); MONO# 0.58 X1000 (0.11-0.59); MONO% 7.9 % (1.7-9.3); MPV 10.5 FL (7.4-10.4); NEUT# 5.48 X1000 (1.4-6.5); NEUT% 74.5 % (42.2-75.2); PLT 166 X1000 (130-400); RBC 4.84 XMIL (4.2-5.4); RDW 14.8 % (11.5-14.5); WBC 7.36 X1000 (4.8-10.8)
[2018-07-28 16:23] LABS: INR 0.96; PROTIME 13.5 Seconds (11.0-16.0)
--- NOTE | 2018-07-28 16:25 | Diag Imaging Result Doc PS360 ---
EXAM: CHEST-1 VIEW 07/28/2018 HISTORY: sob,copd TECHNIQUE: AP portable upright at 1611 COMMENT: The inspiration is less optimal than on 12/03/2017. There may be some subsegmental atelectasis particularly in the left lower lobe. The heart size and pulmonary vascularity appear to be within normal limits. IMPRESSION: Minimal atelectasis. Electronically signed by Javier England 07/28/2018 4:22 PM
[2018-07-28 16:32] LABS: AGAP 14; ALB/GLOB RATIO 1.3; ALBUMIN 3.9 g/dL (3.5-5.0); ALKALINE PHOSPHATASE 69 U/L (32-104); BUN 14 mg/dL (8-22); CALCIUM 9.4 mg/dL (8.8-10.2); CHLORIDE 103 mmol/L (98-107); COSMO 283; CREATININE 0.6 mg/dL (0.5-0.9); ESTIMATED GFR > 60; GLUCOSE 89 mg/dL (70-104); GOT 22 U/L (10-30); GPT 12 U/L (10-36); POTASSIUM 3.8 mmol/L (3.5-5.1); SODIUM 142 mmol/L (136-145); TCO2 25 mmol/L (25-35); TOTAL BILIRUBIN 0.39 mg/dL (0.20-1.00)
[2018-07-28] MEDS: ROCEPHIN 1 GM in NS 50 ML IV SCH (16:37)
[2018-07-28] MEDS: HUMALOG SUBQ SCH ×2 (16:53→23:32)
[2018-07-28 17:47] LABS: URINE SOURCE VOIDED
[2018-07-28 17:55] LABS: BILIRUBIN URINE NEGATIVE (NEGATIVE); BLOOD URINE NEGATIVE (NEGATIVE); COLOR YELLOW; GLUCOSE URINE NEGATIVE (NEGATIVE); KETONE URINE 40 mg/dL (NEGATIVE); LEUKOCYTES URINE SMALL (NEGATIVE); NITRITE URINE NEGATIVE (NEGATIVE); PH URINE 6.5; PROTEIN URINE 30 mg/dL (NEGATIVE); SP GRAVITY URINE 1.025; TURBIDITY URINE CLEAR (CLEAR); UROBILINOGEN URINE NORMAL (NORMAL)
[2018-07-28 18:14] LABS: UR EPITHELIAL CELLS <10 /HPF (<10); URINE BACTERIA NEGATIVE /HPF
[2018-07-28 18:23] LABS: URINE CASTS NONE SEEN; URINE CRYSTALS NONE SEEN; URINE SMALL ROUND CELLS TRANS PRESENT; URINE YEAST NONE SEEN
[2018-07-28] MEDS: ZOFRAN PO PRN (19:10)
[2018-07-28] MEDS: NORCO-7.5 PO PRN (19:10)
--- NOTE | 2018-07-28 22:25 | HISTORY AND PHYSICAL ---
CHIEF COMPLAINT: Weakness and shortness of breath. 77-year-old female patient, not doing well for last 3 days. The patient was complaining of increasing cough, chest congestion, fatigue, tiredness, no energy. The patient claims to have chills and fever at night, cough productive of yellowish sputum. The patient was getting short of breath with exertion. The patient does have COPD chronic respiratory failure on home oxygen and nebulizer treatment. Her oral intake was variable. Mild nausea. No vomiting. The patient came to the office for evaluation. Because of her history of weakness, shortness of breath, chills, underlying COPD I decided to admit patient for observation. No typical chest pain. The patient did have palpitation at times. No neck stiffness. Denied abdominal pain. No diarrhea, blood, or mucus in the stool. The patient does have polyuria, polydipsia, no dysuria, at times odor to her urine, no vaginal discharge. Denied any leg swelling. The patient does have low back pain. No heat or cold intolerance. No focal weakness. Denied any skin rash. No joint swelling or redness. The patient was feeling depressed and stressed at time due to her underlying medical condition. No dysphagia or odynophagia. No further history available at this time. ALLERGY: Propoxyphene, Cipro. PAST MEDICAL HISTORY: COPD, diabetes mellitus on insulin, hypertension, hyperlipidemia, gastritis and reflux disease, osteoporosis, osteoarthritis, situational depression, headache, the patient does have wrist fracture status post surgery, dementia, peripheral neuropathy, gallstone, hyperlipidemia. PERSONAL HISTORY: , lives with the . Quit smoking few years ago. Denied alcohol or substance abuse. Patient and living with her daughter. FAMILY HISTORY: Significant for diabetes, hypertension, hyperlipidemia . CURRENT MEDICATIONS: Include Aricept, Neurontin, Lantus, Namenda, Glucophage, Remeron, Prilosec, potassium, Evista, Zocor, Effexor. PHYSICAL EXAMINATION: GENERAL: Elderly white female patient in mild distress. Rest from the chart. Her blood pressure on admission 141/77, pulse 90, respiration 12, temperature 97.9 degrees. SKIN: Senile turgor. No rash or petechiae. HEENT: Head atraumatic, normocephalic. [place] conjunctivae. Anicteric sclerae. Extraocular muscle movement normal. Fundus cannot be penetrated. Good oral hygiene. No tonsillopharyngeal congestion or exudate. Ears and nose benign. NECK: Supple. No JVD, thyromegaly or lymphadenopathy. CHEST: Bilateral good air entry present. Few basal crepitations. Occasional wheezing. CARDIOVASCULAR: S1 and S2 heard. No gallop or thrill. ABDOMEN: Soft, nontender. Bowel sounds present. EXTREMITIES: No cyanosis, clubbing. No acute DVT. CARE ADMINISTRATIVE TECH: Alert, awake, able to move all 4 limbs. Vague tenderness lumbosacral spine. CONSIDERATION: Chronic obstructive pulmonary disease exacerbation, acute bronchitis, weakness. Patient was complaining of headache. She does have diabetes mellitus, hypertension, hyperlipidemia, peripheral neuropathy, osteoporosis, depression. LAB DATA: Revealed WBC count 7.36, hemoglobin 11.8, hematocrit 38.9, platelet count 166,000, PT/INR 0.96, PTT 31, blood gas pH 7.43, pCO2 44, PO2 was 58. Electrolytes were fairly benign. Urinalysis did reveal mild proteinuria, urine ketone was 40, leukocyte was small. Patient EKG noted which revealed normal sinus rhythm, nonspecific T-wave changes in the inferior lead. Chest x-ray revealed minimal atelectasis. PLAN: Admit the patient. Will give her IV steroid, pulmonary toilet, bronchodilator care, IV antibiotics. Overall plan discussed with the patient and family. They are in agreement. If patient continued to do well she should be ready to go home tomorrow. I am going to treat her pain with her pain medicine and will give her Zofran for nausea. cc: Sherif Olivares MD
[2018-07-28] MEDS: NAMENDA PO SCH (23:29)
[2018-07-28] MEDS: PROTONIX IV SCH (23:30)
[2018-07-28] MEDS: SODIUM CHLORIDE 0.9% INJ SCH (23:30)
[2018-07-28] MEDS: NEURONTIN PO SCH (23:30)
[2018-07-28] MEDS: LOVENOX SUBQ SCH (23:31)
[2018-07-28] MEDS: SOLU-MEDROL IV SCH (23:31)
[2018-07-28] MEDS: ZOCOR PO SCH (23:31)
[2018-07-29] MEDS: NORCO-7.5 PO PRN ×3 (00:54→19:26)
[2018-07-29] MEDS: ZOFRAN PO PRN ×3 (00:55→19:25)
[2018-07-29] MEDS: DUONEB (A & A) INH SCH ×6 (03:51→23:20)
[2018-07-29] MEDS: HUMALOG SUBQ SCH ×4 (06:44→22:54)
[2018-07-29] MEDS: SOLU-MEDROL IV SCH (06:44)
[2018-07-29] MEDS: TOPROL XL PO SCH (09:41)
[2018-07-29] MEDS: GLUCOPHAGE XR PO SCH ×2 (09:41→16:02)
[2018-07-29] MEDS: EVISTA PO SCH (09:41)
[2018-07-29] MEDS: EFFEXOR XR PO SCH (09:41)
[2018-07-29] MEDS: NAMENDA PO SCH ×2 (09:41→22:53)
[2018-07-29] MEDS: REMERON PO SCH (09:41)
[2018-07-29] MEDS: KLOR-CON PO SCH (09:41)
[2018-07-29] MEDS: NEURONTIN PO SCH ×3 (09:41→22:52)
[2018-07-29] MEDS: BASAGLAR SUBQ SCH (09:42)
[2018-07-29] MEDS: ARICEPT PO SCH (09:43)
--- NOTE | 2018-07-29 15:14 | PROGRESS NOTE ---
DATE: 07/29/2018 Admitted to the hospital with shortness of breath and weakness. The patient has history of COPD and chronic respiratory failure on home oxygen. PAST MEDICAL HISTORY: Reviewed. PAST SURGICAL HISTORY: Reviewed. MEDICINES: Reviewed. ALLERGIES: Ciprofloxacin, propoxyphene. REVIEW OF SYSTEMS: Complains of tremor, weakness. The rest of the review of system no chest pain. No GI symptoms. No dysuria. No swelling of feet. EXAMINATION: Temperature is 98 degrees, pulse is 75, blood pressure 140/52. Patient is not respiratory distress. Slightly tremor and weakness. Atraumatic, normocephalic. No anemia, no cyanosis, no jaundice.Neck: Supple. No lymphadenopathy. Chest: Bilateral air entry. Prolonged expiration wheezing distant heart sounds. Belly: Soft, nontender. She is in diapers. Small abrasions over the right knee noted. No peripheral edema. No obvious neurological deficits. INVESTIGATIONS: CBC. White cell count 7.3, hematocrit 38, platelet 166,000. ABG pH is 7.43, pCO2 44, PO2 58 on room air. SMA 7 is normal. Blood sugars around 300. Urinalysis is clear. Chest x-ray, minimal atelectasis particularly in the left lower lobe. EKG normal sinus rhythm, nothing acute. ASSESSMENT AND PLAN: 1. Acute chronic obstructive pulmonary disease exacerbation currently receiving bronchodilators, intravenous ceftriaxone and I decreased intravenous steroids once daily. 2. Tremors probably from steroids. Decrease IV steroids. 3. Type 2 diabetes on Lantus 20 units subcu on sliding scale with insulin coverage. 4. Deep venous thrombosis prophylaxis with Lovenox. Gastrointestinal prophylaxis with IV Protonix. 5. Chronic pain on hydrocodone. 6. Dementia on Aricept 10 mg daily, Namenda 10 p.o. b.i.d. Continue home medications. Continue to monitor. Will follow up. LEVEL OF DOCUMENTATION: 35 minutes. cc: MD Sherif Byrd MD
[2018-07-29] MEDS: ROCEPHIN 1 GM in NS 50 ML IV SCH ×2 (16:00→17:35)
[2018-07-29] MEDS: ZOCOR PO SCH (22:52)
[2018-07-29] MEDS: LOVENOX SUBQ SCH (22:53)
[2018-07-29] MEDS: SODIUM CHLORIDE 0.9% INJ SCH (22:53)
[2018-07-29] MEDS: PROTONIX IV SCH (22:53)
[2018-07-30] MEDS: DUONEB (A & A) INH SCH ×6 (03:15→23:20)
[2018-07-30] MEDS: HUMALOG SUBQ SCH ×3 (07:53→22:08)
[2018-07-30] MEDS ORDERED: SOLU-MEDROL IV SCH (09:00)
[2018-07-30] MEDS: NORCO-7.5 PO PRN ×3 (11:04→23:53)
[2018-07-30] MEDS: EFFEXOR XR PO SCH (11:06)
[2018-07-30] MEDS: TOPROL XL PO SCH (11:07)
[2018-07-30] MEDS: NEURONTIN PO SCH ×3 (11:07→22:09)
[2018-07-30] MEDS: ARICEPT PO SCH (11:07)
[2018-07-30] MEDS: KLOR-CON PO SCH (11:07)
[2018-07-30] MEDS: GLUCOPHAGE XR PO SCH ×2 (11:07→22:10)
[2018-07-30] MEDS: REMERON PO SCH (11:07)
[2018-07-30] MEDS: NAMENDA PO SCH ×2 (11:07→22:09)
[2018-07-30] MEDS: BASAGLAR SUBQ SCH (11:08)
[2018-07-30] MEDS: EVISTA PO SCH (11:14)
--- NOTE | 2018-07-30 11:45 | PROGRESS NOTE ---
DATE: 07/30/2018 Ms. Torres has some COPD. Her breathing is better. However, she is still sick in the stomach. She has been nauseous. Blood sugar was 133. Chest x-ray showed minimal atelectasis. She is on IV steroids as well as Rocephin. We will make sure that she gets something for nausea. -8 cc: MD Sherif Dallas MD
[2018-07-30] MEDS: ZOFRAN PO PRN ×3 (11:47→22:08)
[2018-07-30] MEDS: ROCEPHIN 1 GM in NS 50 ML IV SCH (16:53)
[2018-07-30] MEDS: LOVENOX SUBQ SCH (22:09)
[2018-07-30] MEDS: PROTONIX IV SCH (22:10)
[2018-07-30] MEDS: ZOCOR PO SCH (22:10)
[2018-07-30] MEDS: SODIUM CHLORIDE 0.9% INJ SCH (22:10)
[2018-07-31] MEDS: DUONEB (A & A) INH SCH ×2 (03:40→07:45)
[2018-07-31] MEDS: HUMALOG SUBQ SCH (06:21)
[2018-07-31] MEDS: ZOFRAN PO PRN (06:49)
[2018-07-31] MEDS ORDERED: MILK OF MAGNESIA PO ONE (07:18)
[2018-07-31] MEDS ORDERED: DULCOLAX PR ONE (07:18)
[2018-07-31] MEDS ORDERED: PREDNISONE PO ONE (07:18)
[2018-07-31 07:31] VITALS: BP 147/57
--- NOTE | 2018-07-31 07:33 | PROGRESS NOTE ---
DATE: 07/31/2018 SUBJECTIVE: Ms. Torres is doing better. Chest congestion and cough improved. Patient complaining of nausea which is chronic. The patient claims she is eating well. No diarrhea. No high-grade fever or chills. Her shortness of breath is better. OBJECTIVE: Vital signs: Stable. O2 saturation is satisfactory. The patient admitted with weakness. I had treated her with COPD exacerbation. Admission labs and chest x-ray noted. Vital signs reviewed. Neck: Supple. No JVD. Lungs: Bilateral good air entry present. CVS: S1 and S2 heard. Abdomen: Soft, nontender. Bowel sounds present. COURT COMMISSIONER: Alert, awake, able to move all 4 limbs. CONSIDERATION: 1. Chronic obstructive pulmonary disease exacerbation. 2. Acute bronchitis. 3. Weakness. 4. Hypertension. 5. Diabetes mellitus. 6. Hyperlipidemia. 7. Overall patient is doing better. She was complaining of being constipated. PLAN: I am going to give her Dulcolax suppository. Continue rest of the treatment and close observation. Overall, the patient received maximum benefit of hospitalization. I am going to discharge patient home today. cc: Sherif Olivares MD
[2018-07-31] MEDS: EFFEXOR XR PO SCH (08:06)
[2018-07-31] MEDS: NEURONTIN PO SCH (08:06)
[2018-07-31] MEDS: TOPROL XL PO SCH (08:06)
[2018-07-31] MEDS: GLUCOPHAGE XR PO SCH (08:06)
[2018-07-31] MEDS: REMERON PO SCH (08:07)
[2018-07-31] MEDS: EVISTA PO SCH (08:07)
[2018-07-31] MEDS: NAMENDA PO SCH (08:07)
[2018-07-31] MEDS: ARICEPT PO SCH (08:07)
[2018-07-31] MEDS: BASAGLAR SUBQ SCH (08:08)
[2018-07-31] MEDS: KLOR-CON PO SCH (08:29)
== END 2018-07-31 10:37 | disposition home or self-care (01) ==
LOC: DIRADM → 4N 14:32
PROVIDERS: ADMIT Internal Medicine; ATTEND Internal Medicine
CPT/HCPCS: 71010; 71045; 80053; 81001; 82805; 82948; 83880; 85025; 85610; 85730; 87070; 87205; 93005; 93010; 94640; 94761; A9270; C9113; J0696; J1650; J1815; J2920; J2930; J7506; J7512; S0164; XXXXX

== ENCOUNTER 2019-04-25 14:51 | Observation (INO) ==
[2019-04-25] MEDS ORDERED: ZOFRAN IV PRN (15:55)
[2019-04-25] MEDS ORDERED: D50W SYRINGE IV PRN (16:00)
[2019-04-25] MEDS ORDERED: DUONEB (A & A) INH SCH ×2 (16:00→23:30)
[2019-04-25] MEDS ORDERED: HUMALOG SUBQ SCH ×2 (16:00→16:05)
[2019-04-25] MEDS: DUONEB (A & A) INH SCH ×3 (16:38→23:10)
--- NOTE | 2019-04-25 16:47 | Diag Imaging Result Doc PS360 ---
CHEST-PORTABLE - 04/25/2019 INDICATION: shortness of breathing, weakness COMPARISON: 01/09/2019 FINDINGS: The patient is very heavily rotated. No obvious infiltrates. Heart size is top normal. No pneumothorax or pleural effusion. IMPRESSION: No acute disease. Electronically signed by Matthew Blue 04/25/2019 4:44 PM
[2019-04-25 16:54] LABS: BASO# 0.02 X1000 (0.0-0.2); BASO% 0.3 % (0.0-0.8); EOS# 0.25 X1000 (0.0-0.7); EOS% 3.9 % (0.0-10.0); HEMATOCRIT 41.2 % (37.0-47.0); HEMOGLOBIN 13.5 g/dL (12.0-16.0); LYMPH# 1.85 X1000 (1.2-3.4); LYMPH% 28.7 % (20.5-51.1); MCH 26.6 PG (27-31); MCHC 32.8 g/dL (33-37); MCV 81.3 FL (81-99); MONO# 0.44 X1000 (0.11-0.59); MONO% 6.8 % (1.7-9.3); MPV 11.2 FL (7.4-10.4); NEUT# 3.89 X1000 (1.4-6.5); NEUT% 60.3 % (42.2-75.2); PLT 92 X1000 (130-400); RBC 5.07 XMIL (4.2-5.4); RDW 14.9 % (11.5-14.5); WBC 6.45 X1000 (4.8-10.8)
--- NOTE | 2019-04-25 17:02 | Diag Imaging Result Doc PS360 ---
EXAM: CT HEAD W/O CONTRAST HISTORY: weakness TECHNIQUE: CT head without contrast COMPARISON: 03/28/2019 FINDINGS: No parenchymal hemorrhage. No epidural or subdural hematoma. No subarachnoid hemorrhage. There is diffuse atrophy with chronic microvascular ischemic changes. No mass identified on this noncontrasted exam. The ventricular system is dilated similar to the prior exam. No sinus opacification. IMPRESSION: 1.No hemorrhage 2.Atrophy with chronic ischemic changes and ventriculomegaly similar to the prior study This exam was performed using automated exposure control, adjustment of mA or kV according to patient size, and/or use of iterative reconstruction technique. Electronically signed by Nikolas Ruelas 04/25/2019 5:00 PM
[2019-04-25 17:03] LABS: AGAP 12; ALB/GLOB RATIO 1.5; ALBUMIN 4.1 g/dL (3.5-5.0); ALKALINE PHOSPHATASE 67 U/L (32-104); BUN 13 mg/dL (8-22); CALCIUM 9.3 mg/dL (8.8-10.2); CHLORIDE 104 mmol/L (98-107); COSMO 284; CREATININE 0.6 mg/dL (0.5-0.9); ESTIMATED GFR > 60; GLUCOSE 81 mg/dL (70-104); GOT 19 U/L (10-30); GPT 11 U/L (10-36); MAGNESIUM 1.8 mg/dL (1.5-2.7); SODIUM 143 mmol/L (136-145); TCO2 27 mmol/L (25-35); TOTAL PROTEIN 6.8 g/dL (6.3-8.3)
[2019-04-25 17:04] LABS: AMYLASE 69 U/L (20-200); LIPASE 58 U/L (13-60)
[2019-04-25 17:32] LABS: URINE SOURCE CLEAN CATCH
[2019-04-25 17:41] LABS: BILIRUBIN URINE NEGATIVE (NEGATIVE); BLOOD URINE NEGATIVE (NEGATIVE); COLOR YELLOW; GLUCOSE URINE NEGATIVE (NEGATIVE); KETONE URINE NEGATIVE (NEGATIVE); LEUKOCYTES URINE TRACE (NEGATIVE); NITRITE URINE NEGATIVE (NEGATIVE); PROTEIN URINE NEGATIVE (NEGATIVE); SP GRAVITY URINE 1.019; TURBIDITY URINE CLEAR (CLEAR); UROBILINOGEN URINE NORMAL (NORMAL)
[2019-04-25 17:43] LABS: UR EPITHELIAL CELLS <10 /HPF (<10); URINE BACTERIA NEGATIVE /HPF; URINE RBC <10 /HPF (<10); URINE WBC 20-40 /HPF (<10)
--- NOTE | 2019-04-25 18:37 | EKG Report ---
Test Performed on : 04/25/2019 4:31:38 PM Test Reason : SOB, weakness Blood Pressure : / mmHG Vent. Rate : 055 BPM Atrial Rate : 055 BPM P-R Int : 166 ms QRS Dur : 088 ms QT Int : 442 ms P-R-T Axes : 060 050 084 degrees QTc Int : 422 ms Sinus bradycardia. Voltage criteria for left ventricular hypertrophy Abnormal ECG When compared with ECG of 28-MAR-2019 12:47, (Unconfirmed) No significant change was found Confirmed by Kam BLANCHARD, Guillermo Minor ([id number]) on 04/26/2019 8:32:21 PM
[2019-04-25] MEDS: ROCEPHIN 1 GM in NS 50 ML IV SCH (19:04)
[2019-04-25] MEDS: NS + KCL 20 MEQ 1,000 ML IV SCH (19:04)
[2019-04-25] MEDS: HUMALOG SUBQ SCH (21:41)
[2019-04-25] MEDS: NORCO-7.5 PO PRN (21:50)
[2019-04-25] MEDS: NAMENDA PO SCH (23:00)
[2019-04-25] MEDS: CYMBALTA PO SCH (23:00)
[2019-04-25] MEDS: REMERON PO SCH (23:00)
[2019-04-25] MEDS: GLUCOPHAGE XR PO SCH (23:00)
[2019-04-25] MEDS: KLONOPIN PO SCH (23:01)
[2019-04-25] MEDS: SOLU-MEDROL IV SCH (23:01)
[2019-04-25] MEDS: ZOCOR PO SCH (23:01)
[2019-04-25] MEDS: DESYREL PO SCH (23:02)
[2019-04-26 05:12] LABS: ALLEN TEST YES; BE 2.9 mmoll (-3.0-3.0); BLOOD TYPE ARTERIAL; HCO3-(ACT) 27.1 mmoll (20.0-26.0); METHB 0.9 % (0.0-1.5); O2(CT) 17.3 mL/dL (15.0-23.0); O2HB 95.4 % (95.0-99.0); PO2(98.6) 90 mmHg (60-100); SAMPLE BLOOD; SAO2 97.5 % (95.0-100.0); THB 12.8 g/dL (11.5-17.4); pH(98.6) 7.33 (7.35-7.45)
[2019-04-26 06:01] LABS: EOS# 0.01 X1000 (0.0-0.7); EOS% 0.2 % (0.0-10.0); HEMATOCRIT 41.6 % (37.0-47.0); HEMOGLOBIN 13.2 g/dL (12.0-16.0); LYMPH# 0.45 X1000 (1.2-3.4); LYMPH% 10.8 % (20.5-51.1); MCHC 31.7 g/dL (33-37); MCV 82.1 FL (81-99); MONO# 0.08 X1000 (0.11-0.59); MONO% 1.9 % (1.7-9.3); MPV 10.9 FL (7.4-10.4); NEUT# 3.63 X1000 (1.4-6.5); NEUT% 87.1 % (42.2-75.2); PLT 142 X1000 (130-400); RBC 5.07 XMIL (4.2-5.4); RDW 14.9 % (11.5-14.5); WBC 4.17 X1000 (4.8-10.8)
[2019-04-26 06:05] LABS: MODALITY CANNULA; PCO2(98.6) 57 mmHg (35-45)
[2019-04-26 06:10] LABS: AGAP 12; ALB/GLOB RATIO 1.5; ALKALINE PHOSPHATASE 67 U/L (32-104); BUN 9 mg/dL (8-22); CALCIUM 9.5 mg/dL (8.8-10.2); CHLORIDE 105 mmol/L (98-107); COSMO 286; CREATININE 0.6 mg/dL (0.5-0.9); ESTIMATED GFR > 60; GLUCOSE 136 mg/dL (70-104); GOT 18 U/L (10-30); GPT 10 U/L (10-36); POTASSIUM 4.5 mmol/L (3.5-5.1); SODIUM 143 mmol/L (136-145); TCO2 26 mmol/L (25-35); TOTAL BILIRUBIN 0.18 mg/dL (0.20-1.00); TOTAL PROTEIN 6.7 g/dL (6.3-8.3)
[2019-04-26 06:21] LABS: FREE T4 1.35 ng/dL (0.93-1.70); TSH 1.11 uIUmL (0.27-4.20)
[2019-04-26 06:30] LABS: LYMPHS 10 % (21-51); MONO 2 % (1-9); SEGS 88 % (42-75)
--- NOTE | 2019-04-26 06:35 | HISTORY AND PHYSICAL ---
CHIEF COMPLAINT: Generalized weakness. HISTORY OF PRESENT ILLNESS: Ms Torres is a 78-year-old female patient not doing well for last 2 to 3 days. The patient was complaining of being weak, tired, and no energy. The patient did have chills. Oral intake was poor. Complaining of dysuria, odor to her urine. The patient did have cough, chest congestion, scanty sputum production, decreased exercise tolerance. Complaining of headache with some nausea. No neck stiffness or blurred vision. Denied any diplopia. No blood or mucus in the stool. No unusual leg swelling. No typical chest pain. Occasional palpitation. Patient came to the office for evaluation. The patient had multiple complaints. I evaluated the patient. She was looking weak, tired, no energy. I decided to admit the patient for further workup and treatment. The patient denied any recent fall or injury. ALLERGIES: Propoxyphene, Cipro. CURRENT MEDICATIONS: Includes Aricept, Namenda, [place], meclizine, Prilosec, Zofran, potassium, nebulizer treatments, Klonopin, Cymbalta, Lantus, Glucophage, metoprolol, Remeron, singular, Evista, Zocor, and trazodone. PAST MEDICAL HISTORY: 1. Hypertension. 2. Hyperlipidemia. 3. Coronary artery disease. 4. Menopause. 5. Depression. 6. Dementia. 7. Vertigo. 8. Osteoporosis. 9. Situational depression. 10. Anxiety. 11. Gastritis and reflux disease. 12. The patient had multiple fractures. 13. Diabetes mellitus. PERSONAL HISTORY: . Quit smoking a few years ago. Denied alcohol or substance abuse. FAMILY HISTORY: Significant for diabetes, hypertension, and osteoporosis. REVIEW OF SYSTEMS: As per HPI. Otherwise unobtainable. PHYSICAL EXAMINATION: GENERAL: Elderly, white female patient in mild distress. VITAL SIGNS: Blood pressure 165/79, pulse 60, respiration 18, temperature 97.8 degrees. SKIN: Senile turgor. HEENT: Head atraumatic, normocephalic. [place]am conjunctivae. Anicteric sclerae. Extraocular muscle movement normal. Fundus cannot be penetrated. Good oral hygiene. No tonsillopharyngeal congestion or exudate. Ears and nose benign. Patient does have dry oral mucosa. NECK: Supple. No JVD, thyromegaly, or lymphadenopathy. CHEST: Bilateral good air entry present. Bibasilar crepitation. Occasional wheezing. CARDIOVASCULAR: S1 and S2 heard. No gallop or thrill. ABDOMEN: Soft, globular. Bowel sounds present. Mild epigastric tenderness. EXTREMITIES: No cyanosis, clubbing. No acute DVT. MONITORING COORDINATOR: Alert, awake, able to move all 4 limbs. LABORATORY DATA: Revealed WBC count 6.45, hemoglobin 13.5, hematocrit 41.2, platelet count was 92,000. Electrolytes were fairly benign. Blood sugar was 190. ProBNP was 95. Urinalysis: 20 to 40 WBC. Her chest x-ray and CT scan results reviewed. CONSIDERATION: 1. The patient admitted with weakness. Urinalysis did reveal urinary tract infection. 2. The patient does have chronic obstructive pulmonary disease. 3. Chronic respiratory failure. 4. Diabetes mellitus. 5. Hypertension. 6. Gastritis and reflux disease. 7. Osteoporosis. 8. Osteoarthritis. 9. Dementia. PLAN: Admit the patient. IV hydration. Close observation. I am going to give her small dose of Solu-Medrol. Continue home medicine. Monitor Accu-Chek. Overall plan discussed at length with the patient and she is in agreement. cc: Sherif Olivares MD
[2019-04-26] MEDS: HUMALOG SUBQ SCH ×4 (06:46→20:46)
[2019-04-26] MEDS: SOLU-MEDROL IV SCH ×3 (06:47→22:26)
--- NOTE | 2019-04-26 06:55 | PROGRESS NOTE ---
DATE: 04/26/2019 SUBJECTIVE: Ms. Torres is doing fair. The patient does feel fatigued and tired at times. Mild cough. No expectoration. The patient is feeling weak. No typical chest pain. No headache. No dysuria or hematuria. The patient does have a cough with scanty sputum production. OBJECTIVE: Vital Signs: Reviewed. O2 saturation was 93, blood pressure 148/77, pulse 76, temperature 99 degrees. Neck: Supple. No JVD. Lungs: Bilateral good air entry present. Occasional wheezing. CVS: S1 and S2 heard. Abdomen: Soft, scaphoid. Bowel sounds present. Extremities: No cyanosis, clubbing. No acute DVT. TAR WORKER: Alert, awake. Able to move all 4 limbs. ASSESSMENT AND PLAN: 1. The patient is admitted with weakness. 2. She does have chronic obstructive pulmonary disease exacerbation. Her pCO2 is elevated. 3. Urinary tract infection. The patient is on antibiotics. Urine culture result is pending. 4. I did a flu test. It was negative. 5. Depression. 6. Diabetes mellitus. Hemoglobin A1c result is pending. 7. Osteoporosis. 8. Hyperlipidemia, on Zocor. 9. Dementia. 10. Overall plan discussed with the patient. I added a small dose of steroid yesterday. Continue the rest of the treatment and close observation. cc: Sherif Olivares MD
[2019-04-26] MEDS: DUONEB (A & A) INH SCH ×5 (07:38→23:49)
[2019-04-26] MEDS: NAMENDA PO SCH ×2 (09:46→20:43)
[2019-04-26] MEDS: EVISTA PO SCH (09:47)
[2019-04-26] MEDS: TOPROL XL PO SCH (09:47)
[2019-04-26] MEDS: SINGULAIR PO SCH (09:47)
[2019-04-26] MEDS: LANTUS INSULIN SUBQ SCH (09:47)
[2019-04-26] MEDS: ARICEPT PO SCH (09:47)
[2019-04-26] MEDS: KLONOPIN PO SCH ×2 (09:47→20:46)
[2019-04-26] MEDS: NS + KCL 20 MEQ 1,000 ML IV SCH ×2 (09:48→22:22)
[2019-04-26] MEDS: NORCO-7.5 PO PRN ×2 (13:01→20:43)
[2019-04-26] MEDS: ROCEPHIN 1 GM in NS 50 ML IV SCH (17:59)
[2019-04-26] MEDS ORDERED: CYANOCOBALAMIN IM ONE (18:12)
[2019-04-26 18:57] LABS: HEMOGLOBIN A1C 5.7 % (4.8-6.0)
--- NOTE | 2019-04-26 19:10 | PROGRESS NOTE ---
DATE: 04/26/2019 SUBJECTIVE: Ms. Torres is doing fair. No high-grade fever or chills. Shortness of breath seems to be doing better. Tolerating food well. The patient claims she still feels weak. Urine culture is negative. Mild cough. No expectoration. Blood work done this morning reviewed, which is stable.Neck: Supple. No JVD. Lungs: Bibasilar crepitations. Heart: S1 and S2 heard. Abdomen: Soft, nontender. Bowel sounds present. No acute DVT. COMPUTER HARDWARE DEVELOPER: Alert, awake, able to move all 4 limbs. LABORATORY DATA: Noted. Plan is to stop Solu-Medrol after last dose tonight. Continue rest of the treatment. Close observation. The patient had low vitamin B12. I will give her vitamin B12 injection. If clinical condition permits, I am planning to discharge patient home tomorrow. PROBLEM LIST: Her problems include: 1. Chronic obstructive pulmonary disease exacerbation. 2. Hypercarbia. 3. Urinary tract infection. Urine culture was negative. 4. Bronchitis. 5. Weakness. 6. The patient does have dementia. cc: Sherif Olivares MD
[2019-04-26] MEDS: DESYREL PO SCH (20:43)
[2019-04-26] MEDS: ZOCOR PO SCH (20:43)
[2019-04-26] MEDS: GLUCOPHAGE XR PO SCH (20:43)
[2019-04-26] MEDS: CYMBALTA PO SCH (20:43)
[2019-04-26] MEDS: REMERON PO SCH (20:43)
[2019-04-27] MEDS: NS + KCL 20 MEQ 1,000 ML IV SCH (03:40)
[2019-04-27] MEDS: HUMALOG SUBQ SCH ×2 (06:32→11:07)
[2019-04-27] MEDS: DUONEB (A & A) INH SCH ×2 (07:25→11:12)
[2019-04-27] MEDS: KLONOPIN PO SCH (08:15)
[2019-04-27] MEDS: ARICEPT PO SCH (08:15)
[2019-04-27] MEDS: EVISTA PO SCH (08:15)
[2019-04-27] MEDS: SINGULAIR PO SCH (08:15)
[2019-04-27] MEDS: NAMENDA PO SCH (08:15)
[2019-04-27] MEDS: TOPROL XL PO SCH (08:15)
[2019-04-27] MEDS: LANTUS INSULIN SUBQ SCH (08:23)
[2019-04-27] MEDS ORDERED: PREDNISONE PO SCH (09:00)
--- NOTE | 2019-04-27 09:15 | DISCHARGE SUMMARY ---
ADMISSION DATE: 04/25/2019 DISCHARGE DATE: 04/27/2019 FINAL DISCHARGE DIAGNOSES: 1. Urinary tract infection. 2. Chronic obstructive pulmonary disease exacerbation. 3. Hypoxemic respiratory failure. 4. Generalized weakness. 5. Diabetes mellitus. 6. Hypertension. 7. Osteoarthritis. 8. Gastritis and reflux disease. 9. Situational depression. 10. Dementia. 11. Rhinitis. 12. Osteoporosis. 13. Hyperlipidemia. 14. Insomnia. HISTORY: Ms Torres is a 78-year-old white female patient admitted with generalized weakness, feverish feeling, chills, poor oral intake, not feeling well, cough and chest congestion. I evaluated patient in the office. It was very hard to pinpoint her sickness I decided to admit the patient for further care. Her initial evaluation did reveal a UTI. I started patient on antibiotics. Urine culture was negative. The patient did have cough, chest congestion. Blood gas did reveal hypercapnic respiratory failure. I gave her a trial of BiPAP, treated her with steroid, IV fluid and symptomatic treatment. Her clinical condition stabilized and improved. Oral intake is improving. No fever or chills. I checked appropriate labs and patient is doing better. No nausea, vomiting. OBJECTIVE: Vital Signs: As noted. The patient was saying BiPAP was given her headache. Neck: Neck is supple. No JVD. Lungs: Bilateral good air entry present. CVS: S1 and S2 heard. Abdomen: Soft, nontender. Bowel sounds present. CHILD SUPPORT OFFICER: Alert, awake able to move all 4 limbs. LABORATORY DATA: Her blood gas pH 7.33 pCO2 57, PO2 was 98. This was done on 2 L via nasal cannula. Electrolytes were fairly benign. Hemoglobin A1c was fairly satisfactory 5.7. Urinalysis did reveal 20 to 40 WBCs but urine culture was negative. Blood culture was no growth. I checked her for influenza and it was negative. Chest x-ray no acute disease. I did CT scan of her brain and it was no hemorrhage, atrophy with chronic ischemic changes and ventriculomegaly which was same as before. DISCHARGE INSTRUCTIONS: Overall patient received maximum benefit of hospitalization. Advised patient to take medicine regularly. Use her oxygen bronchodilator treatment. I am going to discharge her home on tapering dose of prednisone, antibiotics, gave her a few pain medicine. Monitor Accu-Chek, fall precaution. FOLLOWUP: Follow up with me next week. In case of more distress, call us back or go to emergency room. Overall discharge condition satisfactory. cc: Sherif Olivares MD
[2019-04-27 11:51] VITALS: BP 145/68
== END 2019-04-27 12:39 | disposition home or self-care (01) ==
LOC: DIRADM → EDIPHOLD 14:51 → 1N 18:33
PROVIDERS: ADMIT Internal Medicine; ATTEND Internal Medicine

== ENCOUNTER 2019-05-14 15:36 | Inpatient (IN) ==
--- NOTE | 2019-05-14 15:45 | PROVIDER DOCUMENTATION ---
HPI-Neurological Disorder - General Stated Complaint: STROKE LIKE SX Time Seen by Provider: 05/14/19 16:06 Source: family (daughter Doris) Allergies/Adverse Reactions: Patient Allergies Allergy/AdvReac Type Severity Reaction Status Date / Time propoxyphene HCl * Allergy Mild NAUSEA/VOMI Verified 03/28/19 12:02 [From Darvon] TING ciprofloxacin [From Cipro] Allergy RASH Verified 03/28/19 12:02 ciprofloxacin HCl * Allergy RASH Verified 03/28/19 12:02 [From Cipro] Home Medications: Home Medication List Medication Instructions Recorded Confirmed Last Taken Type SIMVAstatin [Zocor] 40 mg PO QHS 04/30/13 03/28/19 12/05/16 08:00 History Insulin Glargine [Lantus] 22 unit SUBQ QAM 08/23/16 03/28/19 04/24/19 19:00 History 22 u Raloxifene [Evista] 60 mg PO DAILY 12/05/16 03/28/19 12/05/16 08:00 History Albuterol 2.5MG/Ipratrop 0.5MG 3 ml INH RTQ4H neb 12/09/16 04/25/19 04/25/19 12:00 Rx [Duoneb (A & A)] Potassium Chloride E.r. [Klor-Con] 20 meq PO DAILY #30 tablet 12/09/16 03/28/19 Unknown Rx Clonazepam 0.5 mg PO BID 03/28/19 04/25/19 04/25/19 07:00 History 1 tab Donepezil HCl 5 mg PO DAILY 03/28/19 03/28/19 Unknown History Duloxetine HCl 1 cap PO QHS 03/28/19 03/28/19 04/25/19 07:00 History Memantine HCl 10 mg PO BID 03/28/19 03/28/19 04/25/19 07:00 History 1 tab Metformin HCl [Metformin HCl ER] 2 tab PO QHS 03/28/19 03/28/19 Unknown History Metoprolol Succinate E.r. [Toprol 50 mg PO DAILY 03/28/19 03/28/19 Unknown History Xl] Mirtazapine 45 mg PO QHS 03/28/19 03/28/19 Unknown History Montelukast Sodium 10 mg PO DAILY 03/28/19 03/28/19 Unknown History Omeprazole 40 mg PO DAILY 03/28/19 03/28/19 Unknown History Ondansetron HCl [Zofran] 4 mg PO TID 03/28/19 03/28/19 Unknown History Trazodone HCl 50 mg PO QHS 03/28/19 03/28/19 Unknown History Albuterol 2.5MG/Ipratrop 0.5MG 3 ml INH RTQ4H.WA neb 04/27/19 Unknown Rx [Duoneb (A & A)] CefUROXIME [Ceftin] 500 mg PO Q12HR #8 tab 04/27/19 Unknown Rx Hydrocodone/APAP 7.5 mg/325 mg 1 ea PO Q8H PRN PRN #20 tab 04/27/19 Unknown Rx [[place]-7.5] Prednisone 10 mg PO DAILY #10 tab 04/27/19 Unknown Rx - History of Present Illness-Neuro Nature of Presenting Problem: Patient with a h/o DM, HTN, HLD, COPD brought by EMS for altered mental status. Patient in the ED has spontaneous eye opening but was none verbal , only responded to deep sternal pressure. her mental status improved when she got back from CT. Appearing lethargic but able to obey commands. history now obtained from her 2 daughters now at bed side. Doris returned home today and found pt in bed, unresponsive to her and she had to call the EMS for transfer to the ER. At baseline, patient ambulates with a walker at home per daughter Headache Location: reports: other (unresponsiveness today) Onset/Duration: reports: this afternoon Timing: reports: improving Context: reports: found unresponsive by family Character of Altered Mental Status: reports: decreased responsiveness Any recent trauma/injury?: reports: none New weakness or altered sensation location:: reports: general (diffuse) (lethargic) Associated Symptoms: reports: denies symptoms Review of Systems - Adult - REVIEW OF SYSTEMS - ADULT ROS:: unobtainable per condition Constitutional: reports: other (denies per daughter) Past History - Adult - PAST MEDICAL HISTORY-ADULT Review of Records: reports: Nursing Assessment Review, Medications Reviewed, Social history reviewed & non-contributory. 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 Exam: PERRL, other Motor/Sensory: weak motor strength RUE, weak motor strength LUE, weak motor strength RLE, weak motor strength LLE, other (generalised weakness, able to move all 4 extremities slowly) Neurologic: other (patient is altered, does not respond to sound but to deep sternal pressure) Integumentary: petechiae Psych/Mental Status: other (oriented to name only) - [place] Coma Scale Best Eye Response: (4) open spontaneously Best Verbal Response: (5) oriented Best Motor Response: (6) obeys commands (patient is oriented to name only) Progress - PLAN OF CARE/RESULTS Progress/Plan/Lab Results: Vital Signs - 8 hr 05/14/19 15:46 Temperature 99.9 F H Pulse Rate 90 Respiratory Rate 16 Blood Pressure 174/95 O2 Sat by Pulse Oximetry 100 Laboratory Results - last 24 hr 05/14/19 05/14/19 05/14/19 15:58 16:21 16:21 WBC 4.86 RBC 4.95 Hgb 12.8 Hct 40.9 MCV 82.6 MCH 25.9 L MCHC 31.3 L RDW Std Deviation 15.1 H Plt Count 133 MPV 10.3 Immature Gran % (Auto) 0.0 Neut % (Auto) 68.2 Lymph % (Auto) 21.4 Meagher % (Auto) 8.6 Eos % (Auto) 1.6 Baso % (Auto) 0.2 Immature Gran # (Auto) 0.00 Neut # (Auto) 3.31 Lymph # (Auto) 1.04 L Meagher # (Auto) 0.42 Eos # (Auto) 0.08 Baso # (Auto) 0.01 PT INR PTT (Actin FS) Sodium 142 Potassium 3.3 L Chloride 105 Carbon Dioxide 26 Anion Gap 11 BUN 8 Creatinine 0.6 Estimated GFR/1.73 m2 > 60 BUN/Creatinine Ratio 13 Glucose 106 H POC Glucose 93 D Calculated Osmolality 282 Calcium 9.2 Total Bilirubin 0.30 AST 14 ALT 11 Alkaline Phosphatase 62 Troponin T Total Protein 6.1 L Albumin 4.1 Globulin 2.0 Albumin/Globulin Ratio 2.0 Urine Source Urine Color Urine Turbidity Urine pH Ur Specific [place] Urine Protein Ur Glucose (Stick) Ur Ketones (Stick) Urine Blood Urine Nitrite Urine Bilirubin Urobilinogen Dipstick Urine Leukocytes Urine WBC (Auto) Urine RBC (Auto) U Epithel Cells (Auto) Urine Bacteria (Auto) Urine Opiates Screen Ur Oxycodone Screen Ur Methadone, Qual Ur Barbiturates Screen Ur Phencyclidine Scrn Ur Amphetamines Screen U Benzodiazepines Scrn Urine Cocaine Screen U Cannabinoids Screen 05/14/19 05/14/19 05/14/19 16:21 16:21 16:55 WBC RBC Hgb Hct MCV MCH MCHC RDW Std Deviation Plt Count MPV Immature Gran % (Auto) Neut % (Auto) Lymph % (Auto) Meagher % (Auto) Eos % (Auto) Baso % (Auto) Immature Gran # (Auto) Neut # (Auto) Lymph # (Auto) Meagher # (Auto) Eos # (Auto) Baso # (Auto) PT 13.7 INR 1.03 PTT (Actin FS) 29.0 Sodium Potassium Chloride Carbon Dioxide Anion Gap BUN Creatinine Estimated GFR/1.73 m2 BUN/Creatinine Ratio Glucose POC Glucose Calculated Osmolality Calcium Total Bilirubin AST ALT Alkaline Phosphatase Troponin T < 0.010 Total Protein Albumin Globulin Albumin/Globulin Ratio Urine Source CATH Urine Color YELLOW Urine Turbidity CLEAR Urine pH 7.0 Ur Specific [place] 1.012 Urine Protein NEGATIVE Ur Glucose (Stick) NEGATIVE Ur Ketones (Stick) NEGATIVE Urine Blood NEGATIVE Urine Nitrite NEGATIVE Urine Bilirubin NEGATIVE Urobilinogen Dipstick NORMAL Urine Leukocytes NEGATIVE Urine WBC (Auto) <10 Urine RBC (Auto) <10 U Epithel Cells (Auto) <10 Urine Bacteria (Auto) NEGATIVE Urine Opiates Screen Ur Oxycodone Screen Ur Methadone, Qual Ur Barbiturates Screen Ur Phencyclidine Scrn Ur Amphetamines Screen U Benzodiazepines Scrn Urine Cocaine Screen U Cannabinoids Screen 05/14/19 16:55 WBC RBC Hgb Hct MCV MCH MCHC RDW Std Deviation Plt Count MPV Immature Gran % (Auto) Neut % (Auto) Lymph % (Auto) Meagher % (Auto) Eos % (Auto) Baso % (Auto) Immature Gran # (Auto) Neut # (Auto) Lymph # (Auto) Meagher # (Auto) Eos # (Auto) Baso # (Auto) PT INR PTT (Actin FS) Sodium Potassium Chloride Carbon Dioxide Anion Gap BUN Creatinine Estimated GFR/1.73 m2 BUN/Creatinine Ratio Glucose POC Glucose Calculated Osmolality Calcium Total Bilirubin AST ALT Alkaline Phosphatase Troponin T Total Protein Albumin Globulin Albumin/Globulin Ratio Urine Source Urine Color Urine Turbidity Urine pH Ur Specific [place] Urine Protein Ur Glucose (Stick) Ur Ketones (Stick) Urine Blood Urine Nitrite Urine Bilirubin Urobilinogen Dipstick Urine Leukocytes Urine WBC (Auto) Urine RBC (Auto) U Epithel Cells (Auto) Urine Bacteria (Auto) Urine Opiates Screen NONE DETECTED Ur Oxycodone Screen NONE DETECTED Ur Methadone, Qual NONE DETECTED Ur Barbiturates Screen NONE DETECTED Ur Phencyclidine Scrn NONE DETECTED Ur Amphetamines Screen NONE DETECTED U Benzodiazepines Scrn NONE DETECTED Urine Cocaine Screen NONE DETECTED U Cannabinoids Screen NONE DETECTED Orders Category Date Time Status Admit - [facility] Routine AdmDCTranf 05/14/19 18:38 Active Cardiac Monitoring DIRECTED Care 05/14/19 15:41 Active Finger Stick Blood Sugar (ED) DIRECTED Care 05/14/19 15:41 Active Misc. NRSG Communication Order DIRECTED Care 05/14/19 15:41 Active Oxygen Therapy- ED Nursing DIRECTED Care 05/14/19 15:41 Active Saline Loc NOW Care 05/14/19 15:41 Active CHEST-PORTABLE [RAD] Stat Exams 05/14/19 15:[address] HEAD W/O CONTRAST [CT] Stat Exams 05/14/19 15:36 Completed CBC WITH ELECTRONIC DIFF [HEME] Stat Lab 05/14/19 16:21 Completed COMPREHENSIVE METABOLIC PANEL [CHEM] Stat Lab 05/14/19 16:21 Completed PROTIME WITH INR [COAG] Stat Lab 05/14/19 16:21 Completed PTT [COAG] Stat Lab 05/14/19 16:21 Completed TROPONIN T Stat Lab 05/14/19 16:21 Completed URINALYSIS W/POSS RFLX CULT [URINALYSIS] Stat Lab 05/14/19 16:55 Completed URINE DRUG SCREEN Stat Lab 05/14/19 16:55 Completed EKG [EKG] Stat Ther 05/14/19 15:41 Active Transfer/Admit Order [TRANSFER] Routine Transfer 05/14/19 18:41 Ordered Result Diagrams: 05/14/19 16:21 05/14/19 16:21 - REASSESSMENT Reassessment #1 Time Reassessed: 17:19 (pt seen- awake, now oriented to time place and person. able to answer questions and able to move all extremities better than previous exams. Discussed CT , cxr , ua and cbc findings with pt and triniugher. CMP pending) Status: improving - XRAY 1 XRAY Study: Chest ( FINDINGS: Lungs are hyperexpanded suggesting COPD. There is some sort of wire projecting over the patient's chest. No infiltrates or edema. Heart size is top normal. IMPRESSION: COPD. Electronically signed by Matthew Blue 05/14/2019 4:17 PM 05/14/19 [id number] Interpreting Physician: Matthew Blue MD Dictated Date/Time: 05/14/19 0974) - CT/MRI 1 CT Study: Head (CT HEAD W/O CONTRAST - 05/14/2019 INDICATION: stroke like s/s COMPARISON: 04/25/2019 FINDINGS: Stable advanced cerebral atrophy. Stable advanced ventriculomegaly. Stable advanced periventricular white matter hypodensities suggesting gliosis. No intracranial mass or hemorrhage. The skull is intact. The sinuses are clear. IMPRESSION: No change from prior. This exam was performed using automated exposure control, adjustment of mA or kV according to patient size, and/or use of iterative reconstruction technique Electronically signed by Matthew Blue 05/14/2019 4:11 PM) - CONSULTS/PCP/HOSPITALIST Notification #1 *Consult/PCP/Hospitalist*: [facility]- patients PCP Time Discussed: 05:40 (he came saw patient. he is okay with 23hr observation) Consult Disposition: Admit (to PCP for observation) Departure - Departure Date of Disposition Decision: 05/14/19 Time of Disposition Decision: 18:52 DIAGNOSIS: Altered mental state Disposition: ADMITTED INPATIENT 09 Certified Medical Emergency: Emergent Condition: Fair Referrals and Follow-Ups: None,PCP [NON-STAFF PROVIDER] - - Critical Care Note This patient required my direct & personal management of CC.: No Attestation - Physician/ ALTAGRACIA Attestation Patient care was provided by Advanced Practice Provider:: No The physician spent face to face time with patient:: Yes Advanced Practice Provider documentation review:: Supervising physician onsite and consulted in the evaluation and care of this patient. The physician did have a face to face encounter with the patient.
--- NOTE | 2019-05-14 16:13 | Diag Imaging Result Doc PS360 ---
CT HEAD W/O CONTRAST - 05/14/2019 INDICATION: stroke like s/s COMPARISON: 04/25/2019 FINDINGS: Stable advanced cerebral atrophy. Stable advanced ventriculomegaly. Stable advanced periventricular white matter hypodensities suggesting gliosis. No intracranial mass or hemorrhage. The skull is intact. The sinuses are clear. IMPRESSION: No change from prior. This exam was performed using automated exposure control, adjustment of mA or kV according to patient size, and/or use of iterative reconstruction technique Electronically signed by Matthew Blue 05/14/2019 4:11 PM
--- NOTE | 2019-05-14 16:19 | Diag Imaging Result Doc PS360 ---
CHEST-PORTABLE - 05/14/2019 INDICATION: stroke like symptoms COMPARISON: 04/25/2019 FINDINGS: Lungs are hyperexpanded suggesting COPD. There is some sort of wire projecting over the patient's chest. No infiltrates or edema. Heart size is top normal. IMPRESSION: COPD. Electronically signed by Matthew Blue 05/14/2019 4:17 PM
[2019-05-14 16:44] LABS: BASO# 0.01 X1000 (0.0-0.2); BASO% 0.2 % (0.0-0.8); EOS# 0.08 X1000 (0.0-0.7); EOS% 1.6 % (0.0-10.0); HEMATOCRIT 40.9 % (37.0-47.0); HEMOGLOBIN 12.8 g/dL (12.0-16.0); LYMPH# 1.04 X1000 (1.2-3.4); LYMPH% 21.4 % (20.5-51.1); MCH 25.9 PG (27-31); MCHC 31.3 g/dL (33-37); MCV 82.6 FL (81-99); MONO# 0.42 X1000 (0.11-0.59); MONO% 8.6 % (1.7-9.3); MPV 10.3 FL (7.4-10.4); NEUT# 3.31 X1000 (1.4-6.5); NEUT% 68.2 % (42.2-75.2); PLT 133 X1000 (130-400); RBC 4.95 XMIL (4.2-5.4); RDW 15.1 % (11.5-14.5); WBC 4.86 X1000 (4.8-10.8)
[2019-05-14 16:48] LABS: INR 1.03; PROTIME 13.7 Seconds (11.0-16.0)
[2019-05-14 17:01] LABS: URINE SOURCE CATH
[2019-05-14 17:04] LABS: BILIRUBIN URINE NEGATIVE (NEGATIVE); BLOOD URINE NEGATIVE (NEGATIVE); COLOR YELLOW; GLUCOSE URINE NEGATIVE (NEGATIVE); KETONE URINE NEGATIVE (NEGATIVE); LEUKOCYTES URINE NEGATIVE (NEGATIVE); NITRITE URINE NEGATIVE (NEGATIVE); PROTEIN URINE NEGATIVE (NEGATIVE); SP GRAVITY URINE 1.012; TURBIDITY URINE CLEAR (CLEAR); UR EPITHELIAL CELLS <10 /HPF (<10); URINE BACTERIA NEGATIVE /HPF; URINE RBC <10 /HPF (<10); URINE WBC <10 /HPF (<10); UROBILINOGEN URINE NORMAL (NORMAL)
[2019-05-14 17:13] LABS: UR AMPHETAMINES QUAL NONE DETECTED (NONE DETECT); UR BARBITUATES QUAL NONE DETECTED (NONE DETECT); UR BENZODIAZEPIN QUAL NONE DETECTED (NONE DETECT); UR CANNABINOIDS QUAL NONE DETECTED (NONE DETECT); UR COCAINE QUAL NONE DETECTED (NONE DETECT); UR METHADONE QUAL NONE DETECTED (NONE DETECT); UR OPIATES QUAL NONE DETECTED (NONE DETECT); UR OXYCODONE QUAL NONE DETECTED (NONE DETECT); UR PCP QUAL NONE DETECTED (NONE DETECT)
[2019-05-14 17:14] LABS: AGAP 11; ALBUMIN 4.1 g/dL (3.5-5.0); ALKALINE PHOSPHATASE 62 U/L (32-104); BUN 8 mg/dL (8-22); CALCIUM 9.2 mg/dL (8.8-10.2); CHLORIDE 105 mmol/L (98-107); COSMO 282; CREATININE 0.6 mg/dL (0.5-0.9); ESTIMATED GFR > 60; GLUCOSE 106 mg/dL (70-104); GOT 14 U/L (10-30); GPT 11 U/L (10-36); POTASSIUM 3.3 mmol/L (3.5-5.1); SODIUM 142 mmol/L (136-145); TCO2 26 mmol/L (25-35); TOTAL PROTEIN 6.1 g/dL (6.3-8.3)
--- NOTE | 2019-05-14 20:24 | HISTORY AND PHYSICAL ---
CHIEF COMPLAINT: Altered mental status. HISTORY OF PRESENT ILLNESS: Ms. Torres is a 78-year-old white female patient, known case of COPD, chronic respiratory failure, diabetes mellitus, osteoporosis, hypertension, hyperlipidemia was in her usual state of health early afternoon. When daughter went back home according to daughter, the patient was unresponsive. She was not arousable. Patient was also aphasic. Daughter called EMS. The patient was brought to emergency room. When patient came to emergency room, the patient was initially only responsive to deep stimuli. She was aphasic. She had mild left-sided weakness. After she went for CT scan, the patient started gaining her consciousness back. She was becoming responsive. There was no history suggestive of seizure. The patient was not hypoglycemic, no history suggestive of drug use. No fall or head injury. No fever or chills. The patient does have chronic cough. No expectoration. No high-grade fever or chills. The patient had some nausea but no vomiting. Denied any diarrhea, blood or mucus in the stool. The patient does have chronic back pain. No runny nose, stuffy nose. No heat or cold intolerance. The patient had unquantified weight loss. History part was limited. When I evaluated the patient, the patient was awake and alert. Answering questions fairly well. ALLERGIES: Propoxyphene, Cipro. HOME MEDICATIONS: Include nebulizer treatment, Klonopin, Aricept, Namenda, Zocor, Cymbalta, Lantus, Glucophage, Toprol, Remeron, Singulair, Prilosec, Zofran, potassium, Prednisone, Evista, trazodone. PAST MEDICAL HISTORY: Osteoporosis, hypertension, hyperlipidemia, gastritis, dementia, COPD, chronic respiratory failure, hip fracture, fracture of the wrist, situational depression. PERSONAL HISTORY: , lives with her daughter, quit smoking a few years ago. Denied alcohol or substance abuse. FAMILY HISTORY: Significant for diabetes, hypertension, and hyperlipidemia. PHYSICAL EXAMINATION: GENERAL: Elderly white female patient in mild distress. VITAL SIGNS: In the emergency room, temperature 99.9 degrees, pulse is 90, respirations 16, blood pressure 174/95. HEENT: Head atraumatic, normocephalic. [place] conjunctivae. Anicteric sclerae. Extraocular muscle movement normal. Fundus cannot be penetrated. Good oral hygiene. No tonsillopharyngeal congestion or exudate. Ears and nose benign. NECK: Supple. No JVD, thyromegaly or lymphadenopathy. CHEST: Bibasilar crepitation. Occasional wheezing. CARDIOVASCULAR: S1 and S2 heard, 2/6 systolic murmur at the apex. ABDOMEN: Soft, scaphoid. Bowel sounds present. EXTREMITIES: No cyanosis, clubbing. No acute DVT. CENTRAL NERVOUS SYSTEM: Alert, awake, able to move all 4 limbs. MUSCULOSKELETAL SYSTEM: Crepitation in both the knee joints, vague tenderness lumbosacral spine. ASSESSMENT: Patient admitted with altered mental status, unresponsiveness, etiology not clear. I am not sure patient had a seizure or not. Her drug screen was negative. No history of fall. We did CT scan of her brain. It was unremarkable. Her chest x-ray revealed COPD. Her other problems include diabetes mellitus on insulin, hypertension. Other consideration was cardiac arrhythmia. I am going to place patient on telemetry monitoring. Her other problems includes depression, gastritis and reflux disease, osteoporosis. PLAN: Admit patient, hydration, GI and DVT prophylaxis, neuro checks and seizure precaution. Check appropriate labs. Overall plan discussed with the patient, and she is in agreement. cc: Sherif Olivares MD
[2019-05-14] MEDS ORDERED: KLONOPIN PO SCH (21:06)
[2019-05-14] MEDS ORDERED: NS + KCL 20 MEQ 1,000 ML IV ONE (21:06)
[2019-05-14] MEDS: DUONEB (A & A) INH SCH ×2 (21:36→23:20)
[2019-05-14] MEDS: ZOCOR PO SCH (21:54)
[2019-05-14] MEDS: LOVENOX SUBQ SCH (21:54)
[2019-05-14] MEDS: KLOR-CON PO SCH (21:54)
[2019-05-14] MEDS: GLUCOPHAGE XR PO SCH (21:54)
[2019-05-14] MEDS: NAMENDA PO SCH (21:54)
[2019-05-14] MEDS: REMERON PO SCH (21:54)
[2019-05-14] MEDS: CYMBALTA PO SCH (22:25)
[2019-05-14] MEDS: SOLU-MEDROL IV SCH (22:25)
[2019-05-15] MEDS: DUONEB (A & A) INH SCH ×6 (03:27→23:25)
[2019-05-15] MEDS: SOLU-MEDROL IV SCH ×3 (06:08→21:27)
[2019-05-15 06:10] LABS: EOS# 0.01 X1000 (0.0-0.7); EOS% 0.5 % (0.0-10.0); HEMATOCRIT 43.1 % (37.0-47.0); HEMOGLOBIN 13.1 g/dL (12.0-16.0); LYMPH# 0.36 X1000 (1.2-3.4); LYMPH% 16.9 % (20.5-51.1); MCH 25.9 PG (27-31); MCHC 30.4 g/dL (33-37); MCV 85.3 FL (81-99); MONO# 0.06 X1000 (0.11-0.59); MONO% 2.8 % (1.7-9.3); MPV 10.9 FL (7.4-10.4); NEUT% 79.8 % (42.2-75.2); PLT 137 X1000 (130-400); RBC 5.05 XMIL (4.2-5.4); RDW 15.4 % (11.5-14.5); WBC 2.13 X1000 (4.8-10.8)
[2019-05-15 06:42] LABS: AGAP 11; BUN 9 mg/dL (8-22); CALCIUM 8.9 mg/dL (8.8-10.2); CHLORIDE 106 mmol/L (98-107); COSMO 288; CREATININE 0.7 mg/dL (0.5-0.9); ESTIMATED GFR > 60; GLUCOSE 201 mg/dL (70-104); POTASSIUM 4.5 mmol/L (3.5-5.1); SODIUM 142 mmol/L (136-145); TCO2 25 mmol/L (25-35)
--- NOTE | 2019-05-15 06:58 | PROGRESS NOTE ---
DATE: 05/15/2019 SUBJECTIVE: Ms. Torres is doing fair. Patient admitted with altered mental status, passing out episode. When daughter found her, she was quite altered, not aware of surroundings, unresponsive. When she came to the hospital, she came back, started responding. Etiology not clear. We decided to admit the patient for further care. The patient is doing fair. She denied any chest pain. Since admission, no seizure-type episode. She denied any chest pain, palpitations. No headache. Her vital signs are stable. She was tachycardic at times. No nausea or vomiting. OBJECTIVE: Vital Signs: Noted. Neck: Supple. No JVD. Lungs: Bibasilar crepitations. Heart: S1 and S2 heard. A 2/6 systolic murmur at the apex. Abdomen: Soft, nontender. Bowel sounds present. Extremities: No cyanosis, clubbing. No acute DVT. OPTOMETRIST ASSISTANT: Alert, awake, able to move all 4 limbs. CONSIDERATION: 1. Altered mental status. 2. Syncope. Etiology is not clear. The patient is on telemetry to look for any evidence of cardiac arrhythmia. I am going to check echocardiogram and carotid Doppler. Resume her home medicine. Will monitor Accu-Chek. I put her back on Solu-Medrol. Continue the rest of the treatment. Fall precaution. Physical Therapy evaluation. Neurologic checks. Her morning lab data showed CBC was fairly benign. Electrolyte results are pending. Discussed fall precaution. I am going to get echocardiogram and carotid Doppler. Overall plan discussed with the patient. Will resume her diet. cc: Sherif Olivares MD
[2019-05-15 07:11] LABS: ALB/GLOB RATIO 1.9; ALBUMIN 4.1 g/dL (3.5-5.0); DIRECT BILIRUBIN 0.1 mg/dL (0.00-0.20); TOTAL BILIRUBIN 0.25 mg/dL (0.20-1.00); TOTAL PROTEIN 6.3 g/dL (6.3-8.3)
--- NOTE | 2019-05-15 07:19 | EKG Report ---
Test Performed on : 05/15/2019 06:55:34 AM Test Reason : ams Blood Pressure : / mmHG Vent. Rate : 105 BPM Atrial Rate : 105 BPM P-R Int : 162 ms QRS Dur : 084 ms QT Int : 330 ms P-R-T Axes : 068 016 069 degrees QTc Int : 436 ms Sinus tachycardia. Otherwise normal ECG When compared with ECG of 25-APR-2019 16:31, Vent. rate has increased BY 50 BPM Nonspecific T wave abnormality now evident in Lateral leads Confirmed by Rogerio BLANCHARD, Amadeo Minor ([id number]) on 05/15/2019 11:08:15 PM
[2019-05-15] MEDS: LANTUS INSULIN SUBQ SCH (08:58)
[2019-05-15] MEDS: SINGULAIR PO SCH (08:58)
[2019-05-15] MEDS: NAMENDA PO SCH ×2 (08:58→20:46)
[2019-05-15] MEDS: PRILOSEC PO SCH (08:58)
[2019-05-15] MEDS: KLOR-CON PO SCH (08:58)
[2019-05-15] MEDS: ARICEPT PO SCH (08:58)
[2019-05-15] MEDS: TOPROL XL PO SCH (08:58)
[2019-05-15] MEDS: EVISTA PO SCH (08:59)
[2019-05-15] MEDS: NORCO-7.5 PO PRN (16:19)
--- NOTE | 2019-05-15 19:15 | ECHO REPORT ---
ORDER DATE: 05/15/2019 MEASUREMENTS: Septal thickness 0.8, left ventricular internal diameter end-diastole 3.5, posterior wall thickness 0.8, aortic root 3.4, left atrium 3.5. SUMMARY: 1. Fair quality study. 2. Aortic valve is without evidence of structural abnormality and opens adequately on 2- dimensional images. Peak gradient across the aortic valve is approximately 10 mmHg. Mitral, tricuspid, and pulmonic valves are without evidence of structural abnormality with mild tricuspid regurgitation. The estimated systolic PA pressure by Doppler is 50 to 55 mmHg, suggesting moderate pulmonary hypertension. The aortic root is normal in size. 3. Normal left ventricular dimensions demonstrated. Estimated left ventricular ejection fraction appears to be approximately 70%. No regional wall motion abnormalities are evident. Doppler suggests grade 1 left ventricular diastolic dysfunction. Left atrium, right atrium, and right ventricle are normal size with grossly preserved right ventricular systolic function. 4. No pericardial effusion. 5. Appearance of inferior vena cava suggests normal central venous pressure. CONCLUSIONS: 1. Mild tricuspid regurgitation with moderate pulmonary hypertension by Doppler. 2. Normal left ventricular systolic function without regional wall motion abnormality evident. 3. Grade 1 left ventricular diastolic dysfunction suggested. cc: MD Sherif Jackman MD
[2019-05-15] MEDS: GLUCOPHAGE XR PO SCH (20:45)
[2019-05-15] MEDS: CYMBALTA PO SCH (20:45)
[2019-05-15] MEDS: LOVENOX SUBQ SCH (20:45)
[2019-05-15] MEDS: REMERON PO SCH (20:45)
[2019-05-15] MEDS: ZOCOR PO SCH (20:46)
[2019-05-16] MEDS: NORCO-7.5 PO PRN ×2 (00:54→09:02)
[2019-05-16] MEDS: DUONEB (A & A) INH SCH ×4 (03:37→16:13)
[2019-05-16] MEDS: SOLU-MEDROL IV SCH (05:30)
[2019-05-16] MEDS ORDERED: ZOFRAN IV PRN (06:51)
--- NOTE | 2019-05-16 07:18 | PROGRESS NOTE ---
DATE: 05/16/2019 SUBJECTIVE: Ms. Torres admitted with altered mental status, syncope. Clinically patient is doing fair. The patient was complaining of some neck pain, more pain with movement. Also has dull headache. No high-grade fever or chills. The patient found unresponsive at home. We were unsure whether she had a fall or not. Patient is very vague and poor historian. Denied any chest pain or palpitations. The patient does have history suggestive of COPD and dementia [*] and gastritis. PHYSICAL EXAMINATION: Vital signs: Noted. Neck: Supple. No JVD. Lungs: Bilateral good air entry present. Cardiovascular: S1 and S2 heard. Abdomen: Soft, nontender. Bowel sounds present. Extremities: No cyanosis, clubbing. No acute DVT. The patient was tremulous, most likely due to steroid. Movement of cervical spine minimally painful. No stiffness in the neck. LABORATORY DATA: Done yesterday noted. ASSESSMENT AND PLAN: I am going to get CT scan of the cervical spine. Ambulate the patient with physical therapy. Continue rest of the treatment. Repeat blood work. If clinical condition permits, I am planning to discharge patient home soon. Overall plan discussed with the patient and she is in agreement. cc: Sherif Olivares MD
--- NOTE | 2019-05-16 08:21 | Diag Imaging Result Doc PS360 ---
EXAM: CT CERVICAL SPINE W/O CONTRAST 05/16/2019 HISTORY: neck pain TECHNIQUE: This exam was performed using automated exposure control, adjustment of mA or kV according to patient size, and/or use of iterative reconstruction technique. COMMENT: The current examination is compared with the previous study of 09/07/2018. There is no evidence of fracture or subluxation. There is pleural thickening and calcification in the right apex. This has not changed. There is osteophyte formation and joint space narrowing in the anterior atlantoaxial joint. This was also present previously. There is uncovertebral arthropathy with osteophyte formation on the left at the C3-4 level. There is facet arthropathy on the left particularly at the C3-4, C4-5 and C2-3 levels. This has not changed significantly since the previous study. At the C2-3 level there is no evidence of spinal or foraminal stenosis. At C3-4 there is slight narrowing of the left foramen which was also the case previously. At the C4-5 level there is no evidence of spinal or foraminal stenosis. At C5-6 the foramina are slightly narrowed bilaterally. There is no evidence of spinal stenosis. At C6-7 there is slight bilateral foraminal stenosis without evidence of spinal stenosis. At C7-T1 there is no evidence of spinal or foraminal stenosis. IMPRESSION: Mild degenerative changes as described above. No evidence of acute disease. Stable since 09/07/2018. Electronically signed by Javier England 05/16/2019 8:19 AM
[2019-05-16] MEDS ORDERED: PREDNISONE PO SCH (09:00)
[2019-05-16] MEDS: EVISTA PO SCH (09:02)
[2019-05-16] MEDS: SINGULAIR PO SCH (09:02)
[2019-05-16] MEDS: LANTUS INSULIN SUBQ SCH (09:02)
[2019-05-16] MEDS: NAMENDA PO SCH (09:03)
[2019-05-16] MEDS: ARICEPT PO SCH (09:03)
[2019-05-16] MEDS: KLOR-CON PO SCH (09:03)
[2019-05-16] MEDS: PRILOSEC PO SCH (09:03)
[2019-05-16] MEDS: TOPROL XL PO SCH (09:03)
[2019-05-16 16:30] LABS: HEMATOCRIT 41.5 % (37.0-47.0); HEMOGLOBIN 12.8 g/dL (12.0-16.0); IMM GRAN# 0.03 X1000 (0.0-0.04); IMM GRAN% 0.2 % (0.0-0.5); LYMPH# 0.79 X1000 (1.2-3.4); MCH 25.9 PG (27-31); MCHC 30.8 g/dL (33-37); MONO# 0.57 X1000 (0.11-0.59); MONO% 4.3 % (1.7-9.3); MPV 10.6 FL (7.4-10.4); NEUT# 11.78 X1000 (1.4-6.5); NEUT% 89.5 % (42.2-75.2); PLT 179 X1000 (130-400); RBC 4.94 XMIL (4.2-5.4); RDW 15.6 % (11.5-14.5); WBC 13.17 X1000 (4.8-10.8)
[2019-05-16 16:57] LABS: AGAP 11; ALB/GLOB RATIO 1.5; ALBUMIN 4.1 g/dL (3.5-5.0); ALKALINE PHOSPHATASE 62 U/L (32-104); BUN 15 mg/dL (8-22); CALCIUM 9.9 mg/dL (8.8-10.2); CHLORIDE 99 mmol/L (98-107); COSMO 278; CREATININE 0.6 mg/dL (0.5-0.9); ESTIMATED GFR > 60; GLUCOSE 123 mg/dL (70-104); GOT 11 U/L (10-30); GPT 9 U/L (10-36); LYMPHS 8 % (21-51); MAGNESIUM 1.9 mg/dL (1.5-2.7); MONO 2 % (1-9); POTASSIUM 4.5 mmol/L (3.5-5.1); SEGS 89 % (42-75); SODIUM 138 mmol/L (136-145); TCO2 28 mmol/L (25-35); TOTAL BILIRUBIN 0.21 mg/dL (0.20-1.00); TOTAL PROTEIN 6.9 g/dL (6.3-8.3)
[2019-05-16 16:58] LABS: LARGE PLATELETS OCCASIONAL
[2019-05-16 17:01] VITALS: BP 160/65
--- NOTE | 2019-05-17 13:21 | DISCHARGE SUMMARY ---
ADMISSION DATE: 05/14/2019 DISCHARGE DATE: 05/16/2019 FINAL DISCHARGE DIAGNOSES: 1. Syncope. 2. Chronic obstructive pulmonary disease. 3. Diabetes mellitus, on insulin. 4. Hypertension. 5. Osteoporosis. 6. Neck pain. 7. Alzheimer's type dementia. 8. Gastritis and reflux disease. 9. Depression. 10. Osteoporosis. HISTORY AND HOSPITAL COURSE: Ms. Torres is a 78-year-old white female patient, found by her daughter at home, unresponsive. The patient was brought to the emergency room. Initially, the patient was responsive to only deep painful stimuli, but gradually she regained her responsiveness back. There was no history of trauma. No seizure-type episode. No chest pain or palpitations. No fever or chills. We admitted the patient, observed her on telemetry. We did neurologic checks, seizure precaution, close monitoring. Her clinical condition improved. I gave her IV Solu-Medrol. The patient was complaining of neck pain. With her history of fall, I did CT scan of her cervical spine, which did reveal arthritis and degenerative disk disease. No evidence of spinal or foraminal stenosis. Telemetry did not reveal any arrhythmia. No seizure-type episode. Overall, the patient's clinical condition improved. She responded well to steroid, which I change to p.o. prednisone. Overall, the patient received maximum benefit of hospitalization, and she was eager to go home, and I decided to discharge her home. I did echocardiogram as a workup of syncope, which revealed mild tricuspid regurgitation with moderate pulmonary hypertension by Doppler, normal left ventricular systolic function without regional wall abnormality, grade 1 left ventricular diastolic dysfunction. Her CT scan of the brain did not reveal any acute changes. Blood work done today showed WBC count 13.17, hemoglobin 12.8, hematocrit 41.5, platelet count 179,000. Electrolytes were fairly benign. Cardiac isoenzymes were negative. Urinalysis was benign. Urine drug screen was negative. Her chest x-ray revealed COPD. I am going to discharge the patient home on prednisone 10 mg for 3 days, and then 5 mg for 4 days. I gave her a few pain medicines. Continue rest of the home medicine. Fall precautions. Monitor Accu-Chek and blood pressure at home. Follow up with me in a week's time. In case of more distress, call us back or go to the emergency room. cc: Sherif Olivares MD
--- NOTE | 2019-05-18 20:25 | Carotid Study ---
DATE: 05/15/2019 REFERRING PHYSICIAN: Dr. Olivares . READING PHYSICIAN: Dr. Gloria. INFORMATION SERVICES CONSULTANT: Yamel. INDICATION: Syncope. FINDINGS: There is some irregular plaque at the takeoff of the left internal carotid artery. The velocities and flow appear to be normal in this area. However more distally in the internal carotid artery there is elevated velocity and some turbulence. I cannot clearly see a plaque in this area however. Percent stenosis is 0 to 39% on the right, 40 to 59 percent on the left. There is antegrade vertebral flow bilaterally. INTERPRETATION: Elevated velocities in the distal left internal carotid artery which may be due to some plaque which is not well visualized on this study versus a tortuous artery. In any case by velocity criteria the stenosis would be 40 to 59 percent. I would suggest further followup with CT angiography for better definition. cc: MD Sherif Sánchez MD
== END 2019-05-16 18:36 | disposition home or self-care (01) | DRG 312 ==
LOC: SUPCPDRO → EDBD → ED 15:36 → 2N 19:47
PROVIDERS: ADMIT Internal Medicine; ATTEND Internal Medicine

== ENCOUNTER 2019-05-18 12:27 | Inpatient (IN) ==
--- NOTE | 2019-05-18 13:51 | Diag Imaging Result Doc PS360 ---
EXAM: CT HEAD W/O CONTRAST INDICATION: stroke like s/s TECHNIQUE: This exam was performed using automated exposure control, adjustment of mA or kV according to patient size, and/or use of iterative reconstruction technique. COMPARISON: None. FINDINGS: There is patchy low attenuation in the periventricular and subcortical white matter suggesting fairly advanced microangiopathy. There is ventriculomegaly. This is nonspecific but is probably due to subcortical atrophy. There is no definite acute infarct given the limited sensitivity of CT versus MRI. There is no discrete intracranial mass, mass effect, or intracranial hemorrhage. 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 Surrounding soft tissues and bony structures are essentially unremarkable, otherwise. IMPRESSION: Chronic appearing white matter changes and ventriculomegaly as described. No definite acute intracranial pathology by CT. Electronically signed by Truong Tripp 05/18/2019 1:49 PM
--- NOTE | 2019-05-18 14:17 | Diag Imaging Result Doc PS360 ---
EXAM: CHEST-PORTABLE HISTORY: stroke like symptoms TECHNIQUE: Chest single view COMPARISON: None. FINDINGS: The lungs are well expanded. The heart is not enlarged. The vessels are not distended. There are no infiltrates. Biapical pleural thickening. There appears to be tiny left pleural effusion. IMPRESSION: Tiny left effusion. Follow-up PA and lateral recommended. Electronically signed by Nikolas Ruelas 05/18/2019 2:15 PM
[2019-05-18 15:16] LABS: EOS# 0.08 X1000 (0.0-0.7); EOS% 1.3 % (0.0-10.0); HEMOGLOBIN 14.8 g/dL (12.0-16.0); LYMPH# 1.34 X1000 (1.2-3.4); LYMPH% 21.9 % (20.5-51.1); MCHC 31.5 g/dL (33-37); MCV 82.6 FL (81-99); MONO% 8.2 % (1.7-9.3); MPV 10.4 FL (7.4-10.4); NEUT# 4.21 X1000 (1.4-6.5); NEUT% 68.6 % (42.2-75.2); PLT 173 X1000 (130-400); RBC 5.69 XMIL (4.2-5.4); RDW 15.5 % (11.5-14.5); WBC 6.13 X1000 (4.8-10.8)
[2019-05-18 15:23] LABS: INR 0.99; PROTIME 13.2 Seconds (11.0-16.0)
[2019-05-18 15:24] LABS: PTT 28.3 Seconds (22.3-41.8)
[2019-05-18 15:28] LABS: AGAP 18; ALB/GLOB RATIO 1.8; ALBUMIN 4.6 g/dL (3.5-5.0); ALKALINE PHOSPHATASE 71 U/L (32-104); BUN 17 mg/dL (8-22); CALCIUM 9.9 mg/dL (8.8-10.2); CHLORIDE 96 mmol/L (98-107); COSMO 278; CREATININE 0.7 mg/dL (0.5-0.9); ESTIMATED GFR > 60; GLUCOSE 84 mg/dL (70-104); GOT 17 U/L (10-30); GPT 10 U/L (10-36); POTASSIUM 4.3 mmol/L (3.5-5.1); SODIUM 139 mmol/L (136-145); TCO2 25 mmol/L (25-35); TOTAL BILIRUBIN 0.47 mg/dL (0.20-1.00); TOTAL PROTEIN 7.2 g/dL (6.3-8.3)
[2019-05-18 15:53] LABS: URINE SOURCE CATH
[2019-05-18 16:01] LABS: BILIRUBIN URINE NEGATIVE (NEGATIVE); BLOOD URINE TRACE (NEGATIVE); COLOR YELLOW; GLUCOSE URINE NEGATIVE (NEGATIVE); KETONE URINE 40 mg/dL (NEGATIVE); LEUKOCYTES URINE SMALL (NEGATIVE); NITRITE URINE NEGATIVE (NEGATIVE); PROTEIN URINE TRACE mg/dL (NEGATIVE); TURBIDITY URINE CLEAR (CLEAR); UR EPITHELIAL CELLS >10 /HPF (<10); URINE BACTERIA NEGATIVE /HPF; URINE RBC <10 /HPF (<10); URINE WBC <10 /HPF (<10); UROBILINOGEN URINE NORMAL (NORMAL)
[2019-05-18 16:29] LABS: UR AMPHETAMINES QUAL NONE DETECTED (NONE DETECT); UR BARBITUATES QUAL NONE DETECTED (NONE DETECT); UR BENZODIAZEPIN QUAL NONE DETECTED (NONE DETECT); UR CANNABINOIDS QUAL NONE DETECTED (NONE DETECT); UR COCAINE QUAL NONE DETECTED (NONE DETECT); UR METHADONE QUAL NONE DETECTED (NONE DETECT); UR OPIATES QUAL NONE DETECTED (NONE DETECT); UR OXYCODONE QUAL NONE DETECTED (NONE DETECT); UR PCP QUAL NONE DETECTED (NONE DETECT)
--- NOTE | 2019-05-18 16:46 | PROVIDER DOCUMENTATION ---
This chart was entered by Mimi Martin Scribe, acting as scribe for Emre Neri MD. HPI-Neurological Disorder - General Chief Complaint: Stroke-Like Symptoms Stated Complaint: stroke like symptoms Time Seen by Provider: 05/18/19 13:40 Source: family Allergies/Adverse Reactions: Patient Allergies Allergy/AdvReac Type Severity Reaction Status Date / Time propoxyphene HCl * Allergy Mild NAUSEA/VOMI Verified 05/18/19 16:12 [From Darvon] TING ciprofloxacin [From Cipro] Allergy RASH Verified 05/18/19 16:12 ciprofloxacin HCl * Allergy RASH Verified 05/18/19 16:12 [From Cipro] Home Medications: Home Medication List Medication Instructions Recorded Confirmed Last Taken Type SIMVAstatin [Zocor] 40 mg PO QHS 04/30/13 05/18/19 12/05/16 08:00 History Insulin Glargine [Lantus] 22 unit SUBQ QAM 08/23/16 05/18/19 04/24/19 19:00 History 22 u Raloxifene [Evista] 60 mg PO DAILY 12/05/16 05/18/19 12/05/16 08:00 History Albuterol 2.5MG/Ipratrop 0.5MG 3 ml INH RTQ4H neb 12/09/16 05/18/19 04/25/19 12:00 Rx [Duoneb (A & A)] Potassium Chloride E.r. [Klor-Con] 20 meq PO DAILY #30 tablet 12/09/16 05/18/19 Unknown Rx Donepezil HCl 5 mg PO DAILY 03/28/19 05/18/19 Unknown History Duloxetine HCl 1 cap PO QHS 03/28/19 05/18/19 04/25/19 07:00 History Memantine HCl 10 mg PO BID 03/28/19 05/18/19 04/25/19 07:00 History 1 tab Metformin HCl [Metformin HCl ER] 2 tab PO QHS 03/28/19 05/18/19 Unknown History Metoprolol Succinate E.r. [Toprol 50 mg PO DAILY 03/28/19 05/18/19 Unknown History Xl] Mirtazapine 45 mg PO QHS 03/28/19 05/18/19 Unknown History Montelukast Sodium 10 mg PO DAILY 03/28/19 05/18/19 Unknown History Omeprazole 40 mg PO DAILY 03/28/19 05/18/19 Unknown History Trazodone HCl 50 mg PO QHS 03/28/19 05/18/19 Unknown History Albuterol 2.5MG/Ipratrop 0.5MG 3 ml INH RTQ4H.WA neb 04/27/19 05/18/19 Unknown Rx [Duoneb (A & A)] Hydrocodone/APAP 7.5 mg/325 mg 1 ea PO Q8H PRN PRN #12 tab 05/16/19 05/18/19 Unknown Rx [[place]-7.5] Prednisone 10 mg PO DAILY #5 tab 05/16/19 05/18/19 Unknown Rx - History of Present Illness-Neuro Nature of Presenting Problem: Patient is a 78 year old female who presents to the ED via EMS with altered mental status. Family states patient was found unresponsive around 1130. Family reports patient was awake, alert and ambulatory this morning around 0800. Severity: reports: moderate Onset/Duration: reports: this afternoon (1130) Timing: reports: still present Context: reports: found unresponsive by family Character of Altered Mental Status: reports: unresponsive Gait Baseline: uses a walker Similar Symptoms Previously?: Yes Recently seen or treated by another doctor?: Yes Review of Systems - Adult - REVIEW OF SYSTEMS - ADULT ROS:: ROS per family Constitutional: reports: no symptoms reported Eyes: reports: no symptoms reported Ears, Nose, Mouth & Throat: reports: no symptoms reported Cardiovascular: reports: no symptoms reported Respiratory: reports: no symptoms reported Gastrointestinal: reports: no symptoms reported Genitourinary: reports: no symptoms reported Musculoskeletal: reports: no symptoms reported Integumentary: reports: no symptoms reported Neurological: reports: see HPI, other (AMS - unresponsive). denies: dizziness/vertigo, headache/migraines Psychiatric: reports: no symptoms reported Endocrine: reports: no symptoms reported Hematologic/Lymphatic: reports: no symptoms reported Allergic/Immunologic: reports: no symptoms reported All Other Systems: Reviewed and Negative Past History - Adult - PAST MEDICAL HISTORY-ADULT Review of Records: reports: Nursing Assessment Review Major Childhood Illnesses: reports: denies history Cardiovascular: reports: HTN, hyperlipidemia Respiratory: reports: COPD Gastrointestinal: reports: denies history Obstetrical/Gynecological: reports: denies history Genitourinary: reports: denies history Musculoskeletal: reports: denies history Neurological: reports: denies history Psychiatric: reports: depression Endocrine/Immune: reports: Diabetes Other Conditions: reports: denies history - PRIOR SURGERIES/PROCEDURES Surgical/Procedure History: reports: reviewed, not pertinent - IMMUNIZATION STATUS Childhood Immunizations: See Nurse Assessment Flu Vaccine: See Nurse Assessment - FAMILY HISTORY Family History: reviewed, not pertinent - SOCIAL HISTORY Living Situation: family Physical Exam- Neurological - Physical Exam-Neuro Initial Vital Signs Reviewed: Yes General Appearance: other (unresponsive). negative: appears well, anxious HENMT: normocephalic/atraumatic, other (dry mucous membranes). negative: angioedema Head Injury: no evidence of injury. negative: active bleeding, lacerations Respiratory: chest non-tender, lungs clear, normal breath sounds. negative: crackles, stridor, wheezing Cardiovascular: normal peripheral pulses, regular rate, rhythm. negative: tachycardia Abdominal Exam: normal bowel sounds, non tender, soft. negative: guarding, rebound Extremity: normal inspection. 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 negative: jaundice, pallor, rash Psych/Mental Status: other (unresponsive) Progress - PLAN OF CARE/RESULTS Progress/Plan/Lab Results: Vital Signs - 8 hr 05/18/19 12:32 05/18/19 12:40 05/18/19 13:15 Temperature 97.9 F Pulse Rate 90 89 90 Respiratory Rate 16 23 30 H Blood Pressure 137/75 137/75 O2 Sat by Pulse Oximetry 97 97 96 05/18/19 13:30 05/18/19 13:45 05/18/19 14:00 Temperature Pulse Rate 85 84 Respiratory Rate 26 H 29 H Blood Pressure O2 Sat by Pulse Oximetry 94 L 97 96 05/18/19 14:15 05/18/19 14:30 05/18/19 14:45 Temperature Pulse Rate 82 87 83 Respiratory Rate 25 H 27 H 25 H Blood Pressure O2 Sat by Pulse Oximetry 96 96 97 05/18/19 15:00 05/18/19 15:15 05/18/19 15:30 Temperature Pulse Rate 84 83 91 H Respiratory Rate 23 19 22 Blood Pressure O2 Sat by Pulse Oximetry 98 99 100 05/18/19 15:45 05/18/19 15:57 05/18/19 16:00 Temperature Pulse Rate 86 87 88 Respiratory Rate 22 23 24 Blood Pressure 159/85 O2 Sat by Pulse Oximetry 96 99 98 05/18/19 16:02 05/18/19 16:15 Temperature Pulse Rate 91 H 91 H Respiratory Rate 23 23 Blood Pressure 157/88 O2 Sat by Pulse Oximetry 96 98 Laboratory Results - last 24 hr 05/18/19 05/18/19 05/18/19 12:48 14:28 14:28 WBC Cancelled RBC Cancelled Hgb Cancelled Hct Cancelled MCV Cancelled MCH Cancelled MCHC Cancelled RDW Std Deviation Cancelled Plt Count Cancelled MPV Cancelled Immature Gran % (Auto) Cancelled Neut % (Auto) Cancelled Lymph % (Auto) Cancelled Noble % (Auto) Cancelled Eos % (Auto) Cancelled Baso % (Auto) Cancelled Immature Gran # (Auto) Cancelled Neut # (Auto) Cancelled Lymph # (Auto) Cancelled Noble # (Auto) Cancelled Eos # (Auto) Cancelled Baso # (Auto) Cancelled Corrected WBC (Man) Cancelled PT Cancelled INR Cancelled PTT (Actin FS) Cancelled Sodium Potassium Chloride Carbon Dioxide Anion Gap BUN Creatinine Estimated GFR/1.73 m2 BUN/Creatinine Ratio Glucose POC Glucose 93 Calculated Osmolality Calcium Total Bilirubin AST ALT Alkaline Phosphatase Troponin T Total Protein Albumin Globulin Albumin/Globulin Ratio Urine Source Urine Color Urine Turbidity Urine pH Ur Specific [place] Urine Protein Ur Glucose (Stick) Ur Ketones (Stick) Urine Blood Urine Nitrite Urine Bilirubin Urobilinogen Dipstick Urine Leukocytes Urine WBC (Auto) Urine RBC (Auto) U Epithel Cells (Auto) Urine Bacteria (Auto) Urine Opiates Screen Ur Oxycodone Screen Ur Methadone, Qual Ur Barbiturates Screen Ur Phencyclidine Scrn Ur Amphetamines Screen U Benzodiazepines Scrn Urine Cocaine Screen U Cannabinoids Screen 05/18/19 05/18/19 05/18/19 14:55 14:55 14:55 WBC 6.13 RBC 5.69 H Hgb 14.8 Hct 47.0 MCV 82.6 MCH 26.0 L MCHC 31.5 L RDW Std Deviation 15.5 H Plt Count 173 MPV 10.4 Immature Gran % (Auto) 0.0 Neut % (Auto) 68.6 Lymph % (Auto) 21.9 Noble % (Auto) 8.2 Eos % (Auto) 1.3 Baso % (Auto) 0.0 Immature Gran # (Auto) 0.00 Neut # (Auto) 4.21 Lymph # (Auto) 1.34 Noble # (Auto) 0.50 Eos # (Auto) 0.08 Baso # (Auto) 0.00 Corrected WBC (Man) PT INR PTT (Actin FS) Sodium 139 Potassium 4.3 Chloride 96 L Carbon Dioxide 25 Anion Gap 18 BUN 17 Creatinine 0.7 Estimated GFR/1.73 m2 > 60 BUN/Creatinine Ratio 24 Glucose 84 POC Glucose Calculated Osmolality 278 Calcium 9.9 Total Bilirubin 0.47 AST 17 ALT 10 Alkaline Phosphatase 71 Troponin T < 0.010 Total Protein 7.2 Albumin 4.6 Globulin 2.6 Albumin/Globulin Ratio 1.8 Urine Source Urine Color Urine Turbidity Urine pH Ur Specific [place] Urine Protein Ur Glucose (Stick) Ur Ketones (Stick) Urine Blood Urine Nitrite Urine Bilirubin Urobilinogen Dipstick Urine Leukocytes Urine WBC (Auto) Urine RBC (Auto) U Epithel Cells (Auto) Urine Bacteria (Auto) Urine Opiates Screen Ur Oxycodone Screen Ur Methadone, Qual Ur Barbiturates Screen Ur Phencyclidine Scrn Ur Amphetamines Screen U Benzodiazepines Scrn Urine Cocaine Screen U Cannabinoids Screen 05/18/19 05/18/19 05/18/19 14:55 15:38 15:38 WBC RBC Hgb Hct MCV MCH MCHC RDW Std Deviation Plt Count MPV Immature Gran % (Auto) Neut % (Auto) Lymph % (Auto) Noble % (Auto) Eos % (Auto) Baso % (Auto) Immature Gran # (Auto) Neut # (Auto) Lymph # (Auto) Noble # (Auto) Eos # (Auto) Baso # (Auto) Corrected WBC (Man) PT 13.2 INR 0.99 PTT (Actin FS) 28.3 Sodium Potassium Chloride Carbon Dioxide Anion Gap BUN Creatinine Estimated GFR/1.73 m2 BUN/Creatinine Ratio Glucose POC Glucose Calculated Osmolality Calcium Total Bilirubin AST ALT Alkaline Phosphatase Troponin T Total Protein Albumin Globulin Albumin/Globulin Ratio Urine Source CATH Urine Color YELLOW Urine Turbidity CLEAR Urine pH 6.0 Ur Specific [place] 1.020 Urine Protein TRACE A Ur Glucose (Stick) NEGATIVE Ur Ketones (Stick) 40 A Urine Blood TRACE A Urine Nitrite NEGATIVE Urine Bilirubin NEGATIVE Urobilinogen Dipstick NORMAL Urine Leukocytes SMALL A Urine WBC (Auto) <10 Urine RBC (Auto) <10 U Epithel Cells (Auto) >10 A Urine Bacteria (Auto) NEGATIVE Urine Opiates Screen NONE DETECTED Ur Oxycodone Screen NONE DETECTED Ur Methadone, Qual NONE DETECTED Ur Barbiturates Screen NONE DETECTED Ur Phencyclidine Scrn NONE DETECTED Ur Amphetamines Screen NONE DETECTED U Benzodiazepines Scrn NONE DETECTED Urine Cocaine Screen NONE DETECTED U Cannabinoids Screen NONE DETECTED Orders Category Date Time Status Admit - [facility] Routine AdmDCTranf 05/18/19 16:41 Active Activity - Strict Bedrest ORDERED Care 05/18/19 16:42 Active Call Admitting on Arrival AT ADMISSION Care 05/18/19 16:42 Active Cardiac Monitoring DIRECTED Care 05/18/19 13:47 Active Finger Stick Blood Sugar (ED) DIRECTED Care 05/18/19 13:47 Active Misc. NRSG Communication Order DIRECTED Care 05/18/19 13:47 Active Neurological Check Q2 Care 05/18/19 16:42 Active Oxygen Therapy- ED Nursing DIRECTED Care 05/18/19 13:47 Active Resuscitation Status Routine Care 05/18/19 16:42 Ordered Saline Loc NOW Care 05/18/19 13:47 Active Vital Signs Order ROUTINE Care 05/18/19 16:42 Active Z-Document. for Tele Applied ORDERED Care 05/18/19 16:42 Active NPO Diet 05/18/19 16:43 Active CHEST-PORTABLE [RAD] Stat Exams 05/18/19 13:[address] HEAD W/O CONTRAST [CT] Stat Exams 05/18/19 12:28 Completed CBC WITH ELECTRONIC DIFF [HEME] Stat Lab 05/18/19 14:55 Completed COMPREHENSIVE METABOLIC PANEL [CHEM] Stat Lab 05/18/19 14:55 Completed PROTIME WITH INR [COAG] Stat Lab 05/18/19 14:55 Completed PTT [COAG] Stat Lab 05/18/19 14:55 Completed TROPONIN T Stat Lab 05/18/19 14:55 Completed URINALYSIS W/POSS RFLX CULT [URINALYSIS] Stat Lab 05/18/19 15:38 Completed URINE CULTURE [RM] Routine Lab 05/18/19 16:12 Received URINE DRUG SCREEN Stat Lab 05/18/19 15:38 Completed Oxygen Device Routine Oth 05/18/19 16:42 Active Telemetry [OM.EQ] Routine Oth 05/18/19 16:42 Active EKG [EKG] Stat Ther 05/18/19 13:47 Ordered Transfer/Admit Order [TRANSFER] Routine Transfer 05/18/19 16:43 Ordered Result Diagrams: 05/18/19 14:55 05/18/19 14:55 - XRAY 1 XRAY Study: Chest Impression: See EMR Report ( EXAM: CHEST-PORTABLE HISTORY: stroke like symptoms TECHNIQUE: Chest single view COMPARISON: None. FINDINGS: The lungs are well expanded. The heart is not enlarged. The vessels are not distended. There are no infiltrates. Biapical pleural thickening. There appears to be tiny left pleural effusion. IMPRESSION: Tiny left effusion. Follow-up PA and lateral recommended. Electronically signed by Nikolas Ruelas 05/18/2019 2:15 PM 05/18/19 1415 Interpreting Physician: Nikolas Ruelas MD Dictated Date/Time: 05/18/19 1414 cc: Emre Neri MD; Sherif Olivares MD) - CT/MRI 1 CT Study: Head Impression: See EMR Report (EXAM: CT HEAD W/O CONTRAST INDICATION: stroke like s/s TECHNIQUE: This exam was performed using automated exposure control, adjustment of mA or kV according to patient size, and/or use of iterative reconstruction technique. COMPARISON: None. FINDINGS: There is patchy low attenuation in the periventricular and subcortical white matter suggesting fairly advanced microangiopathy. There is ventriculomegaly. This is nonspecific but is probably due to subcortical atrophy. There is no definite acute infarct given the limited sensitivity of CT versus MRI. There is no discrete intracranial mass, mass effect, or intracranial hemorrhage. 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 Surrounding soft tissues and bony structures are essentially unremarkable, otherwise. IMPRESSION: Chronic appearing white matter changes and ventriculomegaly as described. No definite acute intracranial pathology by CT. Electronically signed by Truong Tripp 05/18/2019 1:49 PM 05/18/19 1349 Interpreting Physician: Truong Tripp MD Dictated Date/Time: 05/18/19 1346 cc: Emre Neri MD; Sherif Olivares MD) - CONSULTS/PCP/HOSPITALIST Notification #1 *Consult/PCP/Hospitalist*: Dr. Olivares Time Discussed: 15:27 Reason/Comments: Dr. Neri consulted with Dr. Olivares about patient. Consult Disposition: Will see in ED, Admit Departure - Departure Date of Disposition Decision: 05/18/19 Time of Disposition Decision: 16:45 DIAGNOSIS: Altered mental state Disposition: ADMITTED INPATIENT 09 Certified Medical Emergency: Emergent Condition: Fair Referrals and Follow-Ups: Sherif Olivares MD [Primary Care Provider] - - Critical Care Note This patient required my direct & personal management of CC.: No Attestation - Physician/ ALTAGRACIA Attestation Patient care was provided by Advanced Practice Provider:: No The physician spent face to face time with patient:: Yes Advanced Practice Provider documentation review:: Supervising physician onsite and consulted in the evaluation and care of this patient. The physician did have a face to face encounter with the patient. This chart was documented by the indicated scribe, (Mimi Martin Scribe) and accurately reflects the services I performed and decisions made by me, Emre Neri MD, as attested by the provider's signature.
[2019-05-18] MEDS ORDERED: SODIUM CHLORIDE 0.9% INJ SCH (18:04)
[2019-05-18] MEDS ORDERED: GEODON IM SCH (18:04)
[2019-05-18] MEDS ORDERED: STERILE WATER INJ. INJ PRN (18:04)
--- NOTE | 2019-05-18 18:13 | EKG Report ---
Test Performed on : 05/18/2019 6:03:13 PM Test Reason : ams Blood Pressure : / mmHG Vent. Rate : 087 BPM Atrial Rate : 087 BPM P-R Int : 138 ms QRS Dur : 082 ms QT Int : 372 ms P-R-T Axes : 080 017 061 degrees QTc Int : 447 ms Normal sinus rhythm. Nonspecific ST abnormality Abnormal ECG When compared with ECG of 18-MAY-2019 18:01, (Unconfirmed) No significant change was found Confirmed by Rogerio BLANCHARD, Amadeo Minor ([id number]) on 05/18/2019 9:57:21 PM
--- NOTE | 2019-05-18 19:21 | HISTORY AND PHYSICAL ---
CHIEF COMPLAINT: Altered mental status. HISTORY OF PRESENT ILLNESS: Ms. Torres is a 78-year-old white female patient recently discharged from [facility] when patient was admitted with altered mental status. Workup in the hospital was fairly benign. The patient was treated with Solu-Medrol. We did a neuro check. The patient at that time her mental status improved after a few minutes of arrival in the emergency room. This time patient was staring at the ceiling at home not responding to verbal or tactile stimulation. She stayed in that state for 3 hours. Her blood sugar was satisfactory. The patient was not hypoglycemic. No fever or chills. No history of fall or head injury. In the emergency room initial workup was unremarkable. I was told to evaluate the patient for admission. When I evaluated the patient. The patient was lying with her eyes open looking on the ceiling. She looked like she was in a catatonic state. No chest pain or palpitations. No history of nausea or vomiting. No dysuria or hematuria. No diarrhea, blood, or mucus in the stool. No seizure-type episode. According to the daughter, the patient was in her usual state of health this morning. ALLERGIES: Propoxyphene and Cipro. PAST MEDICAL HISTORY: 1. COPD, hypertension, gastritis and reflux disease. 2. Dementia, osteoarthritis, hyperlipidemia, gastritis. 3. History of hip fracture. 4. Depression, diabetes mellitus, menopause. PERSONAL HISTORY: , her with recent stroke and right-sided weakness. The patient lives with her daughter, quit smoking few years ago. Denied alcohol or substance abuse. FAMILY HISTORY: Significant for diabetes, hypertension, hyperlipidemia. PHYSICAL EXAMINATION: GENERAL: Elderly white female patient, lying in the bed with her eyes open staring on the ceiling. Not responding. VITAL SIGNS: In the emergency room the initial blood pressure was 137/75 pulse is 90, respirations 16, temperature 97.9 degrees. SKIN: Normal turgor. No rash or petechiae. HEENT: Head atraumatic, normocephalic. [place] conjunctivae. Anicteric sclerae. Extraocular muscle movement normal. Fundus cannot be penetrated. Fair oral hygiene. No tonsillopharyngeal congestion or exudate. Ears and nose benign. NECK: Supple. No JVD, thyromegaly or lymphadenopathy. CHEST: Bilateral good air entry present. Bibasilar crepitation. No rales. CARDIOVASCULAR: S1 and S2 heard. 2/6 systolic murmur at the apex. ABDOMEN: Soft, nontender. Bowel sounds present. EXTREMITIES: No cyanosis, clubbing. No acute DVT. CENTRAL NERVOUS SYSTEM: The patient is awake but not responding, uncooperative for detailed neurologic examination. CONSIDERATION: Altered mental status, catatonic state. The patient does not have history suggestive of schizophrenia. The patient does have history of depression. The patient is under stress. Her other problems include chronic obstructive pulmonary disease, hypertension, diabetes mellitus, hyperlipidemia, gastritis and reflux disease. Osteoporosis. IMAGING STUDIES: CT scan of the brain revealed 1 in chronic appearing white matter changes and ventriculomegaly no definite acute intracranial pathology by CT. Chest x-ray, tiny left pleural effusion. LABORATORY DATA: Hemoglobin 14.8, hematocrit 47, WBC count 6.13, platelet 173,000. pt inr0.99, PTT 28.3. Electrolytes were fairly benign. Urinalysis revealed small leukocytosis. Urine drug screen was negative. PLAN: Admit the patient. I am going to get a urine culture, treat her symptomatically with Geodon. I am going to check total CPK to look for rhabdomyolysis. We will make sure her magnesium and QT interval is satisfactory and then treat her with Geodon for possible psychosis. I had a lengthy discussion of patient's condition with her daughters and as per patient's wishes they requested DNR 1. The overall prognosis fair to guarded. Family is aware of prognosis. Her other problem includes diabetes. We will monitor Accu-Chek. Watch patient for hypoglycemia. cc: Sherif Olivares MD MTDD
[2019-05-18] MEDS: DUONEB (A & A) INH SCH ×2 (19:23→23:30)
[2019-05-18] MEDS: TOPROL XL PO SCH (20:12)
[2019-05-18] MEDS: CYMBALTA PO SCH (21:04)
[2019-05-18] MEDS: REMERON PO SCH (21:04)
[2019-05-18] MEDS: NS + KCL 20 MEQ 1,000 ML IV SCH (21:06)
[2019-05-18] MEDS: NORCO-7.5 PO PRN (21:06)
[2019-05-18] MEDS: SOLU-MEDROL IV SCH (21:07)
[2019-05-18] MEDS: PROTONIX IV SCH (21:07)
[2019-05-19] MEDS: DUONEB (A & A) INH SCH ×7 (03:23→23:02)
[2019-05-19] MEDS: SOLU-MEDROL IV SCH ×2 (05:25→12:30)
[2019-05-19] MEDS: TOPROL XL PO SCH (09:01)
[2019-05-19] MEDS: NORCO-7.5 PO PRN ×2 (09:17→16:19)
[2019-05-19] MEDS: ZOFRAN IV PRN (13:09)
[2019-05-19] MEDS: NS + KCL 20 MEQ 1,000 ML IV SCH (13:13)
[2019-05-19 14:28] LABS: URINE SOURCE CATH
[2019-05-19 14:44] LABS: BILIRUBIN URINE NEGATIVE (NEGATIVE); BLOOD URINE NEGATIVE (NEGATIVE); COLOR YELLOW; GLUCOSE URINE 500 mg/dL (NEGATIVE); KETONE URINE 60 mg/dL (NEGATIVE); LEUKOCYTES URINE NEGATIVE (NEGATIVE); NITRITE URINE NEGATIVE (NEGATIVE); PH URINE 6.5; PROTEIN URINE TRACE mg/dL (NEGATIVE); SP GRAVITY URINE 1.023; TURBIDITY URINE CLEAR (CLEAR); UROBILINOGEN URINE NORMAL (NORMAL)
[2019-05-19 14:45] LABS: UR EPITHELIAL CELLS <10 /HPF (<10); URINE BACTERIA NEGATIVE /HPF; URINE RBC <10 /HPF (<10); URINE WBC <10 /HPF (<10)
[2019-05-19] MEDS: GEODON IM PRN (15:07)
[2019-05-19] MEDS: REMERON PO SCH (20:54)
[2019-05-19] MEDS: CYMBALTA PO SCH (20:54)
[2019-05-19] MEDS: PROTONIX IV SCH (20:54)
--- NOTE | 2019-05-19 21:30 | PROGRESS NOTE ---
DATE: 05/19/2019 A 78-year-old white female was readmitted to the hospital with altered mental status, catatonia picture. Not able to follow with verbal commands, not eating. All the workup was negative. I spoke to the patient's daughter. I do not know her baseline. Nurses told me she has intermittent neck pain. Otherwise. REVIEW OF SYSTEMS: None reported. PAST MEDICAL HISTORY: Reviewed. PAST SURGICAL HISTORY: Reviewed. MEDICINES: Reviewed. ALLERGIES: Not known. PHYSICAL EXAMINATION: Temperature is 97.4 degrees, pulse 77, blood pressure 146/70.HEENT: Atraumatic, normocephalic. Pupils equal, reactive to light. TMs are normal. Nose and throat within normal limits. Neck: Supple. Chest: Clear. Heart: Sounds are regular. Belly: Soft, nontender, diapers. Extremities: No edema. No signs of gangrene. Not able to verbal commands. LABS: CBC. White cell count 6.1, hematocrit 47, platelets 173,000. PT 13, INR 0.9. Sodium 139, potassium 4.3, BUN 17, creatinine 0.7, glucose 188. LFTs, cardiac enzymes were negative. Urinalysis is negative. Urine tox screen was negative. CK was negative. EKG normal sinus, nothing acute. Chest x-ray, biapical pleural thickening, nothing acute. CT head chronic appearing white matter changes with ventriculomegaly. ASSESSMENT AND PLAN: 1. A 78-year-old white female admitted to the hospital basically with dementia and multiple falls. CT scan is ventral megaly. Plan is rule out NPH, consult with Dr. Cameron Harley and currently not eating on IV fluids. 2. Muscle spasm. CK was normal. 3. History of chronic obstructive pulmonary disease on steroids. I will cut it down every 12 hours. Also part of the workup will check the B12 and TSH and living will do not resuscitate and continue to monitor over the weekend. LEVEL OF DOCUMENTATION: 35 minutes. cc: MD Sherif Byrd MD
[2019-05-20] MEDS: ZOFRAN IV PRN ×4 (00:27→19:24)
[2019-05-20] MEDS: NORCO-7.5 PO PRN ×3 (00:27→16:30)
[2019-05-20] MEDS ORDERED: SOLU-MEDROL IV SCH (01:00)
[2019-05-20] MEDS: DUONEB (A & A) INH SCH ×6 (03:44→23:14)
[2019-05-20] MEDS: NS + KCL 20 MEQ 1,000 ML IV SCH (05:53)
[2019-05-20 06:14] LABS: TSH 0.67 uIUmL (0.27-4.20)
[2019-05-20] MEDS: TOPROL XL PO SCH (08:14)
--- NOTE | 2019-05-20 12:14 | PROGRESS NOTE ---
DATE: 05/20/2019 SUBJECTIVE: The patient is talking today. She is able to follow with verbal commands. Nurses told me she had some neck pain. Dr. Olivares did a CT of the neck, spondylosis, and otherwise no other complaints. PHYSICAL EXAMINATION: Temperature is 98 degrees, pulse 98 blood pressure is stable. HEENT Examination: Within normal limits. Chest is clear. Hear sounds are regular. Belly is soft, nontender. Able to move all the extremities. INVESTIGATIONS: All the labs were normal. B12 and TSH are normal. Urine cultures are negative. ASSESSMENT AND PLAN: 1. Neck pain due to cervicalgia. 2. Deconditioning and dementia. CT scan, ventriculomegaly, questionable normal- pressure hydrocephalus. 3. Continue intravenous fluids. 4. Chronic obstructive pulmonary disease. We will decrease the steroids to once daily and waiting to be seen by Dr. Harley. Continue present treatment. LEVEL OF DOCUMENTATION: 25 minutes. cc: MD Sherif Byrd MD MTDD
[2019-05-20] MEDS: CYMBALTA PO SCH (21:47)
[2019-05-20] MEDS: REMERON PO SCH (21:47)
[2019-05-20] MEDS: PROTONIX IV SCH ×2 (21:47→22:06)
[2019-05-21] MEDS: NORCO-7.5 PO PRN ×2 (00:30→16:03)
[2019-05-21] MEDS: DUONEB (A & A) INH SCH ×6 (03:00→23:15)
[2019-05-21] MEDS: GEODON IM PRN (06:36)
[2019-05-21] MEDS ORDERED: STERILE WATER INJ. ONE (06:38)
[2019-05-21] MEDS: PROTONIX PO SCH (06:45)
--- NOTE | 2019-05-21 07:11 | PROGRESS NOTE ---
DATE: 05/21/2019 SUBJECTIVE: Ms. Torres is doing fair. The patient was doing better over the weekend. No high- grade fever or chills. Patient admitted with catatonic state. She responded well to Geodon. I also gave her a small dose of steroid. According to nurses, she was talking a few minutes prior to my arrival. When I saw her, the patient was again staring at the ceiling, not communicating or moving. No high-grade fever or chills. Mild cough. No expectoration. No seizure-type episode. The patient does have dementia on CT scan. She does have cerebral atrophy. OBJECTIVE: Vital Signs: Noted. Neck: Supple. No JVD. Lungs: Bibasilar crepitations. Occasional wheezing. CVS: S1 and S2 heard. Abdomen: Soft, globular. Bowel sounds present. EDUCATION ADVISER: Alert, but not communicating. Uncooperative for detailed exam. CONSIDERATION: 1. Altered mental status/catatonic phase. I am waiting for neurologist evaluation. I am going to get the electroencephalogram, check appropriate lab. 2. The patient does have chronic obstructive pulmonary disease. She is on tapering dose of steroid. 3. History of depression and anxiety. 4. Gastritis. Lab and medication noted. After Dr. Harley's evaluation, if clinical condition permits, my plan is to get psychiatrist evaluation, and transfer the patient to the Geropsychiatric Unit at [facility]. I am going to follow her lab. cc: Sherif Olivares MD
[2019-05-21 08:41] LABS: EOS# 0.04 X1000 (0.0-0.7); EOS% 0.7 % (0.0-10.0); HEMATOCRIT 43.4 % (37.0-47.0); HEMOGLOBIN 13.4 g/dL (12.0-16.0); MCH 25.9 PG (27-31); MCHC 30.9 g/dL (33-37); MCV 83.9 FL (81-99); MONO# 0.54 X1000 (0.11-0.59); MONO% 9.8 % (1.7-9.3); MPV 10.3 FL (7.4-10.4); NEUT# 3.83 X1000 (1.4-6.5); NEUT% 69.5 % (42.2-75.2); PLT 146 X1000 (130-400); RBC 5.17 XMIL (4.2-5.4); RDW 15.2 % (11.5-14.5); WBC 5.51 X1000 (4.8-10.8)
[2019-05-21 09:12] LABS: AGAP 13; ALB/GLOB RATIO 2.1; ALBUMIN 4.2 g/dL (3.5-5.0); ALKALINE PHOSPHATASE 57 U/L (32-104); BUN 13 mg/dL (8-22); CALCIUM 9.2 mg/dL (8.8-10.2); CHLORIDE 102 mmol/L (98-107); CK PROFILE 17 U/L (24-173); COSMO 283; CREATININE 0.6 mg/dL (0.5-0.9); ESTIMATED GFR > 60; GLUCOSE 102 mg/dL (70-104); GOT 13 U/L (10-30); GPT 7 U/L (10-36); MAGNESIUM 1.8 mg/dL (1.5-2.7); POTASSIUM 4.2 mmol/L (3.5-5.1); SODIUM 142 mmol/L (136-145); TCO2 27 mmol/L (25-35); TOTAL BILIRUBIN 0.28 mg/dL (0.20-1.00); TOTAL PROTEIN 6.2 g/dL (6.3-8.3)
[2019-05-21] MEDS: TOPROL XL PO SCH ×2 (09:27→09:42)
[2019-05-21] MEDS: SOLU-MEDROL IV SCH ×2 (09:41→18:46)
--- NOTE | 2019-05-21 12:59 | EEG REPORT ---
DATE: 05/21/2019 REFERRING PHYSICIAN: Dr. Olivares. BOWLING BALL GRADER: Yue Guerin. BACKGROUND INFORMATION AND TECHNIQUE: This is a digitally recorded portable routine EEG with video. HISTORY: A 78-year-old female admitted with altered mental status. EEG is ordered to detect evidence of seizures. Medications include Cymbalta, Geodon, Cable, Remeron. EEG FINDINGS: A posterior dominant alpha rhythm is not seen. The background at maximal alertness consists of theta more than delta slowing with intermixed faster frequencies. No definite persistent focal slowing. No definite epileptiform discharges. No seizures. Hyperventilation is not performed. Photic stimulation does not alter the record. The patient becomes drowsy but stage II sleep is not seen. The EKG demonstrates regular RR intervals. IMPRESSION AND CLINICAL CORRELATION: Abnormal routine EEG due to moderate generalized slowing, indicative of a moderate nonspecific encephalopathy. No epileptiform discharges or seizures seen on the current study. This does not rule out an underlying seizure disorder. cc: MD Sherif Fall MD
--- NOTE | 2019-05-21 18:09 | PROGRESS NOTE ---
DATE: 05/21/2019 SUBJECTIVE: I reevaluated the patient this evening. The patient is still not responding well. According to the nurse, this afternoon the patient did talk to her, complaining of some pain, requested pain medicine. No chest pain or palpitations. No seizure like episode. Her EEG result reviewed, but no full-blown seizure type episode. I repeated blood work. Her electrolytes were fairly benign. Cardiac isoenzymes were negative. OBJECTIVE: Vital Signs: Her vital signs were noted. Neck: Supple. No JVD. Lungs: Bibasilar crepitations. Heart: S1 and S2 heard. Abdomen: Soft, nontender. Bowel sounds present. Extremities: No cyanosis, clubbing. Central Nervous System: The patient is uncooperative for detailed exam. DIAGNOSTIC DATA: The EEG did reveal moderate generalized slowing indicative of moderate nonspecific encephalopathy. ASSESSMENT AND PLAN: I am waiting for neurologist evaluation/ I will increase her steroid to twice a day. Continue the rest of the treatment and close observation. Overall plan discussed with the patient's daughter and she is in agreement. cc: Sherif Olivares MD
[2019-05-21] MEDS: CYMBALTA PO SCH (20:23)
[2019-05-21] MEDS: ZOFRAN ODT PO PRN (20:23)
[2019-05-21] MEDS: REMERON PO SCH (20:23)
--- NOTE | 2019-05-21 21:37 | CONSULTATION ---
DATE OF CONSULTATION: 05/21/2019 REASON FOR CONSULT: Altered mental status. HISTORY OF PRESENT ILLNESS: This is a 78-year-old, female with a history of dementia, depression, diabetes, hypertension, hyperlipidemia who was admitted three days ago with altered mental status. History is from chart review as the patient is unable to provide a history and there is no current family available. Apparently, the patient was found the day of admission, to be altered. She was found around 11:30 a.m. That morning around 8 a.m. she was seen to be awake alert and ambulating. She was admitted for evaluation. It looks is though, for the most part, she is lying down motionless staring at the ceiling and not responding to verbal or tactile stimulation. There is documented a few times this admission where she has responded some to staff, spoken clearly and answered some questions appropriately, single word answers it appears. Most recent was around 2pm today. At that time, she stated her name, knew she was in the hospital. She says she normally lives with her daughter and she drank a whole cranberry juice. There has not been reported seizure like events. Head CT on arrival showed a suggestion of fairly advanced microangiopathy and ventriculomegaly which was stable. No obvious acute findings. PAST MEDICAL HISTORY: Hypertension, hyperlipidemia, diabetes, reported dementia, depression, hip fracture, COPD. FAMILY HISTORY: Positive for diabetes, hypertension, hyperlipidemia. SOCIAL HISTORY: . has had recent stroke. Lives with her daughter. Prior smoking. No alcohol or illicits. ALLERGIES: Listed to propoxyphene, ciprofloxacin. MEDICATIONS: Reviewed in the chart. She has been getting her Cymbalta. Solu- Medrol has been weaning, Geodon. REVIEW OF SYSTEMS: Unobtainable due to patient factors. PHYSICAL EXAMINATION: Vital Signs: Afebrile, blood pressure 135/49, pulse 58, respirations 19, 100% on room air. General: Ms. Torres is supine in bed with head of bed slightly elevated. She is awake. She is motionless and staring at the ceiling. She does not respond to loud voice or to mild noxious stimuli. No commands. No vocalization. I can manipulate her upper extremities into various positions to which she will persistently hold. HEENT: Pupils are equal, round, and reactive briskly to bright light. Gaze is conjugate and forward. There is full lateral eye movement with passive head turning. There is inconsistent blink to threat. Initially, the 1st attempt elicits a blink and subsequent to that, no blink. She blinks when corneal reflexes are tested bilaterally. She closes her eyes when I wiped the excess saline from around her eyes. At one point, she seemed to divert her gaze to me, but she did not otherwise react. Face is symmetric. No meningismus. Musculoskeletal: Tone is equal in the limbs. There is a bit of cogwheeling at the wrists bilaterally and a very slight tremor that seems to be seen at rest, but is more pronounced with posture and manipulation. Reflexes are diminished throughout. No clonus. Plantar responses silent. DIAGNOSTICS: Head CT showing suggestion of fairly advanced microangiopathy and stable ventriculomegaly. Atrophy. No definite acute findings. Normal white count. LABS: Reviewed in the chart. Normal sodium, BUN, and creatinine. Blood sugars low to upper 100s. Normal calcium, magnesium, phosphorus, AST, ALT, B12, TSH. Urinalysis reviewed. Toxicology negative. ASSESSMENT AND PLAN: Global encephalopathy. No focal findings. Etiology is not certain. She seems to be in somewhat of a catatonic state, I agree, though apparently at times she will communicate. I did not see much of this during my time at the bedside today. Unfortunately, I do not know her baseline at this time. There is longstanding ventriculomegaly and what appears to be advanced periventricular white matter microangiopathy on CT imaging. I would continue following clinically. Will review the EEG. I think it is reasonable to request a psychiatry evaluation. Thank you for the consultation. cc: MD Sherif Fall MD MTDD
[2019-05-22] MEDS: NORCO-7.5 PO PRN ×2 (00:14→21:06)
[2019-05-22] MEDS: DUONEB (A & A) INH SCH ×6 (03:15→23:50)
[2019-05-22] MEDS: SOLU-MEDROL IV SCH ×2 (06:08→08:01)
[2019-05-22] MEDS: PROTONIX PO SCH (06:09)
[2019-05-22] MEDS: ZOFRAN ODT PO PRN ×3 (06:09→21:13)
--- NOTE | 2019-05-22 06:51 | PROGRESS NOTE ---
DATE: 05/22/2019 SUBJECTIVE: Ms. Torres is doing fair. The patient does have some behavior issue. The patient was not talking this morning just staring at the ceiling. When I told her to consult social service for going to the shelter then patient started talking and obeying simple commands. So I reviewed the neurologist evaluation. The patient is being followed up by psychiatrist at [facility]. Patient does have dementia. No high-grade fever or chills. No nausea or vomiting. Blood work done yesterday noted. OBJECTIVE: Neck: Neck is supple. No JVD. Lungs: Bilateral good air entry present. CVS: CVS S1 and S2 heard. Abdomen: Soft, scaphoid. Bowel sounds present. FIRE LIEUTENANT MARINE: Alert, awake able to move all 4 limbs. ASSESSMENT/PLAN: Patient does have multiple medical problems including diabetes mellitus, hypertension, gastritis, hyperlipidemia, dementia. Her current state is more of catatonia/psychosis. Neurologist is also in agreement and we are going to get opinion psychiatrist for further evaluation, treatment and possible transfer. cc: Sherif Olivares MD
[2019-05-22] MEDS: TOPROL XL PO SCH (08:01)
[2019-05-22] MEDS: PREDNISONE PO SCH (08:01)
--- NOTE | 2019-05-22 13:23 | PROGRESS NOTE ---
DATE: 05/22/2019 SUBJECTIVE: No major overnight events. Apparently this morning the patient started to talk and obey simple commands after hearing that she would be placed in a long-term. She remained afebrile. Her blood pressure 134/64, pulse 70. OBJECTIVE: Ms Torres is supine in bed. Awake alert. She regards as I enter the room. Before entering the room I see her moving about using her extremities equally. She answers questions for me appropriately. She states her name. She knows she is in the hospital, knows the month of May, the year, the president, follows simple commands consistently. Says she had some pain. Pupils are equal and reactive. There is slight dysconjugate gaze with left eye deviated laterally at rest though with good ocular eye movement otherwise. She blinks to threat. She can hear. Face appears to be symmetrical. She is seen to use the limbs spontaneously without obvious focal deficit. EEG yesterday showed mild to moderate generalized slowing which is nonspecific. LABS: Reviewed in the chart. ASSESSMENT AND PLAN: Transient altered mental status or global encephalopathy, much improved today. Apparently she pretty quickly began to interact upon hearing she may go to a long-term. The etiology is uncertain but I suspect there may have been a behavioral component. There is an order for psychiatry evaluation. cc: MD Sherif Fall MD
[2019-05-22] MEDS: REMERON PO SCH (21:06)
[2019-05-22] MEDS: CYMBALTA PO SCH (21:06)
[2019-05-23] MEDS: DUONEB (A & A) INH SCH ×6 (03:48→23:47)
[2019-05-23] MEDS: NORCO-7.5 PO PRN ×2 (06:35→14:35)
[2019-05-23] MEDS: PROTONIX PO SCH (06:35)
[2019-05-23] MEDS: ZOFRAN ODT PO PRN ×2 (06:39→13:23)
--- NOTE | 2019-05-23 07:19 | Diag Imaging Result Doc PS360 ---
EXAM: CHEST-PORTABLE INDICATION: cough TECHNIQUE: One view COMPARISON: 05/18/2019 FINDINGS: There are stable COPD changes and stable biapical pleural and parenchymal scarring. The lungs are grossly clear, otherwise. There is no discrete pleural fluid collection or pneumothorax. The cardiomediastinal silhouette and central vasculature are grossly unremarkable. IMPRESSION: Stable chronic changes. No definite acute chest pathology. Electronically signed by Truong Tripp 05/23/2019 7:17 AM
--- NOTE | 2019-05-23 07:33 | PROGRESS NOTE ---
DATE: 05/23/2019 SUBJECTIVELY: Ms Torres is doing better. She denied any fever or chills. Oral intake is fair. At the time, mild nausea. No vomiting. The patient is more alert and awake. No typical chest pain. The patient denied going to longterm. She does not want to consider going to [facility]. No dysuria or hematuria. OBJECTIVE: Vital signs: Noted. Neck: Supple. No JVD. Lungs: Bibasilar crepitations. Heart: S1 and S2 heard. Abdomen: Soft, nontender. Bowel sounds present. Central nervous system: Alert, awake, able to move all 4 limbs. LABORATORY DATA: Done yesterday noted. Her blood sugar result reviewed. ASSESSMENT AND PLAN: Clinically patient seems to be doing better. I am going to resume her Aricept and Namenda. Continue rest of the treatment. Physical Therapy evaluation. Out of bed to chair. If clinical condition permits, we will plan discharging patient home soon. cc: Sherif Olivares MD
[2019-05-23 08:36] LABS: BASO# 0.01 X1000 (0.0-0.2); BASO% 0.1 % (0.0-0.8); EOS# 0.18 X1000 (0.0-0.7); EOS% 1.9 % (0.0-10.0); HEMATOCRIT 46.3 % (37.0-47.0); HEMOGLOBIN 14.6 g/dL (12.0-16.0); IMM GRAN# 0.02 X1000 (0.0-0.04); IMM GRAN% 0.2 % (0.0-0.5); LYMPH# 1.37 X1000 (1.2-3.4); LYMPH% 14.3 % (20.5-51.1); MCH 26.2 PG (27-31); MCHC 31.5 g/dL (33-37); MONO# 0.95 X1000 (0.11-0.59); MONO% 9.9 % (1.7-9.3); MPV 10.9 FL (7.4-10.4); NEUT# 7.03 X1000 (1.4-6.5); NEUT% 73.6 % (42.2-75.2); PLT 181 X1000 (130-400); RBC 5.58 XMIL (4.2-5.4); RDW 15.1 % (11.5-14.5); WBC 9.56 X1000 (4.8-10.8)
[2019-05-23 08:45] LABS: AGAP 16; ALB/GLOB RATIO 1.4; ALKALINE PHOSPHATASE 61 U/L (32-104); BUN 18 mg/dL (8-22); CALCIUM 9.3 mg/dL (8.8-10.2); CHLORIDE 96 mmol/L (98-107); COSMO 290; CREATININE 0.7 mg/dL (0.5-0.9); ESTIMATED GFR > 60; GLUCOSE 257 mg/dL (70-104); GOT 13 U/L (10-30); GPT 9 U/L (10-36); MAGNESIUM 1.9 mg/dL (1.5-2.7); POTASSIUM 3.7 mmol/L (3.5-5.1); SODIUM 140 mmol/L (136-145); TCO2 28 mmol/L (25-35); TOTAL BILIRUBIN 0.42 mg/dL (0.20-1.00); TOTAL PROTEIN 6.9 g/dL (6.3-8.3)
[2019-05-23] MEDS ORDERED: ARICEPT PO SCH (09:00)
[2019-05-23] MEDS: PREDNISONE PO SCH (09:31)
[2019-05-23] MEDS: TOPROL XL PO SCH (09:31)
[2019-05-23] MEDS: NAMENDA PO SCH ×2 (09:31→20:45)
[2019-05-23] MEDS: CYMBALTA PO SCH (20:44)
[2019-05-23] MEDS: REMERON PO SCH (20:45)
[2019-05-24] MEDS: NORCO-7.5 PO PRN ×3 (03:04→20:32)
[2019-05-24] MEDS: ZOFRAN ODT PO PRN ×3 (03:04→17:26)
[2019-05-24] MEDS: DUONEB (A & A) INH SCH ×6 (05:27→23:55)
[2019-05-24] MEDS: PROTONIX PO SCH (06:34)
--- NOTE | 2019-05-24 07:59 | PROGRESS NOTE ---
DATE: 05/24/2019 SUBJECTIVE: Ms. Torres is doing fair. The patient does have good days and bad days. Her overall health is declining. She denied any chest pain or palpitations. Mild cough. No expectoration. Today, the patient claims she cannot move, but then she was able to move some and asking for Sprite. Her urine looks turbid. No typical chest pain. OBJECTIVE: Her vital signs are noted. Patient is afebrile.Neck: Supple. No JVD. Lungs: Bibasilar crepitations. Heart: S1 and S2 heard. 2/6 systolic murmur at the apex. Abdomen: Soft and scaphoid. Bowel sounds present. VACUUM DRIER TENDER: Alert and awake. Answering questions fair. Able to move all 4 limbs slowly. ASSESSMENT AND PLAN: I am going to check her for UTI. The patient does have dementia, deconditioning, COPD, osteoporosis and diabetes. I had a lengthy discussion with her daughter who is next of kin. Her overall health is declining. Patient is staying more sicker and at times depressed. We decided to put patient on hospice, and daughter is in agreement. At her request, I am going to get [facility] to evaluate the patient, and hopefully discharge patient home tomorrow. cc: Sherif Olivares MD
[2019-05-24 08:36] LABS: URINE SOURCE CATH
[2019-05-24 09:05] LABS: BILIRUBIN URINE SMALL (NEGATIVE); BLOOD URINE MODERATE (NEGATIVE); COLOR ORANGE; GLUCOSE URINE NEGATIVE (NEGATIVE); KETONE URINE NEGATIVE (NEGATIVE); LEUKOCYTES URINE LARGE (NEGATIVE); NITRITE URINE NEGATIVE (NEGATIVE); PROTEIN URINE 600 mg/dL (NEGATIVE); SP GRAVITY URINE 1.025; TURBIDITY URINE TURBID (CLEAR); UR EPITHELIAL CELLS >10 /HPF (<10); URINE BACTERIA 4+ /HPF; URINE CASTS NONE SEEN; URINE YEAST NONE SEEN; UROBILINOGEN URINE 2 mg/dL (NORMAL)
[2019-05-24 09:06] LABS: URINE SMALL ROUND CELLS RENAL PRESENT
[2019-05-24 09:07] LABS: URINE CRYSTALS TRIPLE PHOS PRESENT
[2019-05-24] MEDS: PREDNISONE PO SCH (09:11)
[2019-05-24] MEDS: TOPROL XL PO SCH (09:11)
[2019-05-24] MEDS: CALTRATE 600 + D PO SCH ×2 (09:11→20:33)
[2019-05-24] MEDS: ATIVAN PO SCH ×3 (09:11→16:54)
[2019-05-24] MEDS ORDERED: LANTUS INSULIN SUBQ SCH (16:00)
[2019-05-24] MEDS: ROCEPHIN 1 GM in NS 50 ML IV SCH (16:54)
[2019-05-24] MEDS: CYMBALTA PO SCH (20:33)
[2019-05-24] MEDS: REMERON PO SCH (20:33)
[2019-05-24] MEDS ORDERED: APRESOLINE IV SCH (22:30)
[2019-05-25] MEDS: DUONEB (A & A) INH SCH ×3 (03:54→10:56)
[2019-05-25] MEDS: NORCO-7.5 PO PRN ×2 (04:11→12:15)
[2019-05-25] MEDS: ZOFRAN ODT PO PRN (04:12)
[2019-05-25] MEDS: PROTONIX PO SCH (06:27)
--- NOTE | 2019-05-25 06:51 | PROGRESS NOTE ---
DATE: 05/25/2019 SUBJECTIVE: Ms. Torres is doing better. She is more alert and awake. Oral intake is fair. The patient is still weak. She declined to go to [facility]. No nausea or vomiting. No typical chest pain or palpitations. The patient does have generalized pain. Overall she does have significant decline in her health, weight loss. Oral intake is poor. OBJECTIVE: Vital signs: Noted. Neck is supple. No JVD. Lungs: Bibasilar crepitations. Heart: S1 and S2 heard. Abdomen: Soft, nontender. Bowel sounds present. DIRECTOR OF CHANNEL MARKETING: Alert, awake, able to move all 4 limbs. LABORATORY DATA: Done on May 23 noted. I did urinalysis which did reveal a UTI. ASSESSMENT AND PLAN: The patient did have overall decline in her health, weight loss. She does have COPD and dementia. I think patient will be benefited from hospice care. I am going to treat her UTI. Planning to discharge patient home today with possible hospice if she qualifies, fall precautions. Patient and family do not want any aggressive measures. Will continue comfort care. cc: Sherif Olivares MD
[2019-05-25 08:14] VITALS: BP 155/75
[2019-05-25] MEDS ORDERED: LANTUS INSULIN SUBQ SCH (09:00)
[2019-05-25] MEDS: ATIVAN PO SCH (09:12)
[2019-05-25] MEDS: CALTRATE 600 + D PO SCH (09:12)
[2019-05-25] MEDS: TOPROL XL PO SCH (09:12)
[2019-05-25] MEDS: PREDNISONE PO SCH (09:12)
[2019-05-25] MEDS: ROCEPHIN 1 GM in NS 50 ML IV SCH (09:44)
--- NOTE | 2019-07-02 09:28 | DISCHARGE SUMMARY ---
ADMISSION DATE: 05/18/2019 DISCHARGE DATE: 05/25/2019 FINAL DISCHARGE DIAGNOSES: 1. Urinary tract infection. 2. Weight loss. 3. Chronic obstructive pulmonary disease. 4. Altered mental status. 5. Depression. 6. Hypertension. 7. Diabetes mellitus. 8. Hyperlipidemia. 9. Gastritis and reflux disease. 10. Osteoporosis. HISTORY OF PRESENT ILLNESS: Ms. Torres is a 78-year-old, white, female patient with multiple medical problems, admitted with altered mental status, staring, catatonic state, some behavioral abnormality. The patient was evaluated in the ER. The rest of the information from admission history and physical. The patient does have a complex medical history. HOSPITAL COURSE: The patient was admitted to a telemetry bed. The patient was treated with IV hydration, IV antibiotics, steroid. Neurology consult obtained. Recommendations reviewed. The patient's clinical condition gradually improved. We did entertain the possibility of behavioral abnormality. The patient was not getting better. We thought of sending her to a assisted versus hospice. Hospice evaluated the patient and decided to admit her. I discharged the patient home on hospice. The family was in agreement. The patient did not want any aggressive measures. The patient is being followed up by a psychiatrist. Her chest x-ray revealed stable chronic changes. No definite acute chest pathology. Hemoglobin 14.6, hematocrit 46.3, platelet count 181,000. Electrolytes, blood sugar was 257, potassium 3.7. CPK was normal. Urinalysis did reveal UTI. The patient had CT scan of the head done which revealed chronic-appearing white matter changes and ventriculomegaly. Overall discharge condition satisfactory. The patient went home on hospice. Will continue comfort care, home medicine, fall precautions. Continue followup with psychiatrist. DISCHARGE MEDICINE: As per separate sheet. FOLLOWUP: With me as scheduled. In case of more distress, call us back or go to emergency room. cc: Sherif Olivares MD
== END 2019-05-25 13:30 | disposition hospice, home (50) | DRG 948 ==
LOC: SUPCPDRO → EDBD → ED 12:27 → MERGE 12:27 → EDIPHOLD 16:57 → 1N 19:19
PROVIDERS: ADMIT Internal Medicine; ATTEND Internal Medicine

== ENCOUNTER 2019-06-11 12:27 | Inpatient (IN) ==
[2019-06-11] MEDS ORDERED: NS 1,000 ML IV ONE (13:52)
[2019-06-11] MEDS ORDERED: DUONEB (A & A) INH ONE (13:52)
[2019-06-11] MEDS ORDERED: ZOSYN 4.5 GM in NS 100 ML IV ONE (13:54)
--- NOTE | 2019-06-11 13:55 | Diag Imaging Result Doc PS360 ---
EXAM: CHEST-1 VIEW 06/11/2019 HISTORY: shortness of breath TECHNIQUE: AP portable at 1346 COMMENT: There are increased ill-defined opacities in the left base compared to 05/23/2019. There is also some slight increase in density in the infrahilar portion of the right lower lobe. IMPRESSION: Atelectasis versus bronchopneumonia. Electronically signed by Javier England 06/11/2019 1:52 PM
[2019-06-11 14:42] LABS: ALLEN TEST YES; BE 3.2 mmoll (-3.0-3.0); BLOOD TYPE ARTERIAL; HCO3-(ACT) 27.4 mmoll (20.0-26.0); O2(CT) 18.3 mL/dL (15.0-23.0); O2HB 94.7 % (95.0-99.0); PCO2(98.6) 45 mmHg (35-45); PO2(98.6) 75 mmHg (60-100); SAMPLE BLOOD; THB 13.7 g/dL (11.5-17.4); pH(98.6) 7.41 (7.35-7.45)
[2019-06-11 14:43] LABS: MODALITY CANNULA
--- NOTE | 2019-06-11 15:08 | EKG Report ---
Test Performed on : 06/11/2019 12:56:33 PM Test Reason : ED. No order in [place] Blood Pressure : / mmHG Vent. Rate : 086 BPM Atrial Rate : 086 BPM P-R Int : 148 ms QRS Dur : 084 ms QT Int : 396 ms P-R-T Axes : 065 020 073 degrees QTc Int : 473 ms Normal sinus rhythm. Left ventricular hypertrophy with repolarization abnormality Possible Inferior infarct , age undetermined Abnormal ECG When compared with ECG of 18-MAY-2019 18:03, No significant change was found Unconfirmed Result
[2019-06-11] MEDS ORDERED: VANCOMYCIN 1 GM/NS 1 GM/250 ML IVPB IV ONE (15:16)
[2019-06-11] MEDS ORDERED: NORCO-5 PO ONE (15:18)
[2019-06-11 16:03] LABS: AGAP 19; ALB/GLOB RATIO 1.6; ALBUMIN 3.9 g/dL (3.5-5.0); ALKALINE PHOSPHATASE 82 U/L (32-104); BUN 16 mg/dL (8-22); CHLORIDE 90 mmol/L (98-107); CK PROFILE 30 U/L (24-173); COSMO 274; CREATININE 0.8 mg/dL (0.5-0.9); ESTIMATED GFR > 60; GLUCOSE 142 mg/dL (70-104); GOT 24 U/L (10-30); GPT 14 U/L (10-36); POTASSIUM 3.5 mmol/L (3.5-5.1); SODIUM 135 mmol/L (136-145); TCO2 26 mmol/L (25-35); TOTAL BILIRUBIN 0.29 mg/dL (0.20-1.00); TOTAL PROTEIN 6.3 g/dL (6.3-8.3)
--- NOTE | 2019-06-11 16:03 | PROVIDER DOCUMENTATION ---
This chart was entered by Mimi Martin Scribe, acting as scribe for Dirk Hyman MD. HPI-Respiratory General - General Chief Complaint: Shortness of Breath Stated Complaint: SOB Time Seen by Provider: 06/11/19 13:41 Source: patient, family (daughter) Allergies/Adverse Reactions: Patient Allergies Allergy/AdvReac Type Severity Reaction Status Date / Time propoxyphene HCl * Allergy Mild NAUSEA/VOMI Verified 06/11/19 13:29 [From Darvon] TING ciprofloxacin [From Cipro] Allergy RASH Verified 06/11/19 13:29 ciprofloxacin HCl * Allergy RASH Verified 06/11/19 13:29 [From Cipro] Home Medications: Home Medication List Medication Instructions Recorded Confirmed Last Taken Type SIMVAstatin [Zocor] 40 mg PO QHS 04/30/13 06/11/19 06/10/19 History Albuterol 2.5MG/Ipratrop 0.5MG 3 ml INH RTQ4H neb 12/09/16 06/11/19 04/25/19 12:00 Rx [Duoneb (A & A)] Metoprolol Succinate E.r. [Toprol 50 mg PO DAILY 03/28/19 06/11/19 06/11/19 History Xl] Trazodone HCl 50 mg PO QHS 03/28/19 06/11/19 06/10/19 History Calcium Carbonate/Vit D3 [Caltrate 1 ea PO BID tab 05/25/19 06/11/19 06/11/19 Rx 600 + D] Insulin Glargine [Lantus Insulin] 14 unit SUBQ DAILY unit 05/25/19 06/11/19 Unknown Rx Ondansetron Odt [Zofran Odt] 4 mg PO Q6H PRN PRN tab 05/25/19 06/11/19 06/11/19 Rx Pantoprazole [Protonix] 40 mg PO DAILY@0700 tab 05/25/19 06/11/19 06/11/19 Rx Cholecalciferol (Vitamin D3) 1 cap PO DAILY 06/11/19 06/11/19 06/11/19 History [Vitamin D3] Lorazepam [Ativan] 0.5 mg PO TID 06/11/19 06/11/19 06/11/19 History Mirtazapine [Remeron] 1 tab PO HS 06/11/19 06/11/19 06/10/19 History - History of Present Illness-Resp Nature of Presenting Problem: Patient is a 78 year old female who presents to the ED via EMS with shortness of breath. States cough and body aches with shortness of breath. History of COPD with oxygen use. Daughter states patient has had a decrease in appetite after losing last week. Denies vomiting and diarrhea. Quality of Pain: reports: none Severity in ED: reports: mild Onset/Duration: reports: gradual Timing: reports: still present Associated Symptoms: reports: cough, muscle/bodyaches, shortness of breath Similar Symptoms Previously?: Yes Recently seen or treated by another doctor?: No Review of Systems - Adult - REVIEW OF SYSTEMS - ADULT Constitutional: reports: no symptoms reported. denies: chills, fever, fatique Eyes: reports: no symptoms reported Ears, Nose, Mouth & Throat: reports: no symptoms reported Cardiovascular: reports: no symptoms reported Respiratory: reports: see HPI, cough, shortness of breath. denies: hemoptysis Gastrointestinal: reports: see HPI, poor appetite. denies: nausea, vomiting Genitourinary: reports: no symptoms reported Musculoskeletal: reports: see HPI, muscle aches. denies: back pain, neck pain Integumentary: reports: no symptoms reported Neurological: reports: no symptoms reported Psychiatric: reports: no symptoms reported Endocrine: reports: no symptoms reported Hematologic/Lymphatic: reports: no symptoms reported Allergic/Immunologic: reports: no symptoms reported All Other Systems: Reviewed and Negative Past History - Adult - PAST MEDICAL HISTORY-ADULT Review of Records: reports: Old Records Reviewed, Nursing Assessment Review, Medications Reviewed, Social history reviewed & non-contributory. Major Childhood Illnesses: reports: denies history Cardiovascular: reports: HTN, hyperlipidemia Respiratory: reports: asthma, COPD, pneumonia, other Gastrointestinal: reports: GERD, other (gastritis) Obstetrical/Gynecological: reports: denies history Genitourinary: reports: denies history Musculoskeletal: reports: arthritis, osteoporosis Neurological: reports: dementia Psychiatric: reports: depression Endocrine/Immune: reports: Diabetes, other (hypokalemia) Other Conditions: reports: denies history - PRIOR SURGERIES/PROCEDURES Surgical/Procedure History: reports: appendectomy, colonoscopy, hysterectomy, BTL, orthopedic (extremity), other - IMMUNIZATION STATUS Childhood Immunizations: See Nurse Assessment Flu Vaccine: See Nurse Assessment - FAMILY HISTORY Family History: reviewed, not pertinent - SOCIAL HISTORY Smoking: cigarettes (former) Substance Use: denies Living Situation: family Physical Exam-General - PHYSICAL EXAM-ADULT Initial Vital Signs Reviewed: Yes - CONSTITUTIONAL General Appearance: alert, no apparent distress, thin. negative: lethargic - HEAD, EARS, NOSE, MOUTH & THROAT HENMT: normocephalic/atraumatic, other (dry mucous membranes). negative: angioedema - RESPIRATORY Respiratory: chest non-tender, rhonchi (scattered bilaterally.), wheezing (rare scattered inspiratory and expiratory wheezing), increased rate. negative: accessory muscle use - CARDIOVASCULAR Cardiovascular: normal peripheral pulses, regular rate, rhythm. negative: tachycardia - GASTROINTESTINAL (ABDOMEN) Abdominal Exam: normal bowel sounds, non tender, soft. negative: guarding, rebound - MUSCULOSKELETAL Extremity: normal inspection. negative: deformity, erythema - SKIN Integumentary: normal color, normal turgor, warm/dry. negative: cyanosis, pallor - NEUROLOGIC Neurologic: grossly normal. negative: aphasia, facial droop - PSYCHIATRIC Psych/Mental Status: normal mood/affect, oriented x 3. negative: anxious Progress - PLAN OF CARE/RESULTS Progress/Plan/Lab Results: Vital Signs - 8 hr 06/11/19 13:10 06/11/19 14:35 Temperature 97.7 F Pulse Rate 92 H 79 Respiratory Rate 25 H 24 Blood Pressure 132/74 O2 Sat by Pulse Oximetry 95 96 Laboratory Results - last 24 hr 06/11/19 06/11/19 06/11/19 13:11 14:30 15:35 Specimen Type ARTERIAL Sample Site R RADIAL pH 7.41 pCO2 45 pO2 75 HCO3 27.4 H Base Excess 3.2 H Oxyhemoglobin 94.7 L ABG O2 Sat (Calculated) 18.3 ABG O2 Saturation 97.0 ABG Carboxyhemoglobin 1.40 ABG Methemoglobin 1.0 Fritz Test YES A-a O2 Difference 68.0 Total Hemoglobin 13.7 Lactate 1.00 Liter Flow 2.0 Blood Gas Modality CANNULA FiO2 % 28.0 POC Glucose 64 L D 123 H D Plasma Lactate 06/11/19 15:41 Specimen Type Sample Site pH pCO2 pO2 HCO3 Base Excess Oxyhemoglobin ABG O2 Sat (Calculated) ABG O2 Saturation ABG Carboxyhemoglobin ABG Methemoglobin Fritz Test A-a O2 Difference Total Hemoglobin Lactate Liter Flow Blood Gas Modality FiO2 % POC Glucose Plasma Lactate 1.7 Orders Category Date Time Status Cardiac Monitoring DIRECTED Care 06/11/19 13:39 Active Notify MD of + Sepsis Screen NOW Care 06/11/19 13:39 Active Notify Physician As Ordered Care 06/11/19 13:39 Active PO Fluid Challenge DIRECTED Care 06/11/19 13:53 Active CHEST-1 VIEW [RAD] Stat Exams 06/11/19 13:39 Completed ABG [RESP] Routine Lab 06/11/19 14:30 Completed BLOOD CULTURE [BLDCUL] Stat Lab 06/11/19 15:12 Results CBC WITH DIFF [HEME] Stat Lab 06/11/19 15:12 Results CK PROFILE [SP CHEM] Stat Lab 06/11/19 15:12 Received COMPREHENSIVE METABOLIC PANEL [CHEM] Stat Lab 06/11/19 15:12 Received INFLUENZA SCREEN A/B Stat Lab 06/11/19 15:18 Uncollected LACTATE, PLASMA [CHEM] Lab 06/11/19 15:17 Ordered LACTATE, PLASMA [CHEM] Lab 06/11/19 15:41 Received LACTATE, PLASMA [CHEM] Lab 06/11/19 19:45 Uncollected PROTIME WITH INR [COAG] Stat Lab 06/11/19 15:12 Received PTT [COAG] Stat Lab 06/11/19 15:12 Received TROPONIN T Stat Lab 06/11/19 15:12 Received URINALYSIS W/POSS RFLX CULT [URINALYSIS] Stat Lab 06/11/19 13:39 Uncollected 0.9% Sodium Chloride Inj [Ns] 1,000 ml Med 06/11/19 13:52 Discontinued IV 999 mls/hr Albuterol 2.5MG/Ipratrop 0.5MG [Duoneb (A & A)] Med 06/11/19 13:52 Discontinued 9 ml INH NOW ONE Hydrocodone/APAP 5 mg/325 mg [[place]-5] Med 06/11/19 15:18 Discontinued 1 each PO NOW ONE Piperacillin/Tazobactam [Zosyn] 4.5 gm Med 06/11/19 13:54 Discontinued 0.9% Sodium Chloride Inj [Ns] 100 ml IV NOW Vancomycin 1 gm/Ns Med 06/11/19 15:16 Active 1 gm in 250 ml IV NOW Aerosol Treatments Routine Oth 06/11/19 13:52 Completed Aerosol Treatments Stat Oth 06/11/19 13:52 Completed Oxygen Device Stat Oth 06/11/19 13:39 Active EKG [EKG] Stat Ther 06/11/19 12:56 Draft Result Diagrams: 06/11/19 15:12 - REASSESSMENT Reassessment #1 Time Reassessed: 15:59 Status: improving (Given duoneb, solumedrol, IVF and IV zosyn/vanco for HCAP. States feels a little better. Patient has 2 SIRS criteria and may be septic. Lactate is normal, so there is not severe sepsis. Given po orange juice for hypoglycemia, and sugar normalized.) Reassessment Comment: Chem pending - EKG 1 Time of EKG reading by physician:: 12:56 EKG Read and Signed by:: Dirk Hyman EKG Interpretation (*Must complete 3 of following elements*): Abnormal Rate: 86 Rhythm: normal sinus rhythm [place]: normal QRS: LVH (with repolarization abnormality.) [place] Interval: normal Comments: possible inferior infarct, age undetermined - XRAY 1 XRAY Study: Chest Impression: See EMR Report ( EXAM: CHEST-1 VIEW 06/11/2019 HISTORY: shortness of breath TECHNIQUE: AP portable at 1346 COMMENT: There are increased ill- defined opacities in the left base compared to 05/23/2019. There is also some slight increase in density in the infrahilar portion of the right lower lobe. IMPRESSION: Atelectasis versus bronchopneumonia. Electronically signed by Javier England 06/11/2019 1:52 PM 06/11/19 1352 Interpreting Physician: Javier England MD Dictated Date/Time: 06/11/19 1351 cc: Dirk Hyman MD; Sherif Olivares MD) - CONSULTS/PCP/HOSPITALIST Notification #1 *Consult/PCP/Hospitalist*: Dr. Olivares Time Discussed: 15:52 Reason/Comments: Dr. Hyman consulted with Dr. Olivares about patient. Consult Disposition: Admit Departure - Departure Date of Disposition Decision: 06/11/19 Time of Disposition Decision: 15:52 DIAGNOSIS: Hypoglycemia, COPD with exacerbation, Adult failure to thrive Left lower lobe pneumonia Qualifiers: Pneumonia type: due to unspecified organism Qualified Code(s): J18.1 - Lobar pneumonia, unspecified organism Disposition: ADMITTED INPATIENT 09 Certified Medical Emergency: Emergent Condition: Stable Referrals and Follow-Ups: Sherif Olivares MD [Primary Care Provider] - - Critical Care Note This patient required my direct & personal management of CC.: No Attestation - Physician/ ALTAGRACIA Attestation Patient care was provided by Advanced Practice Provider:: No The physician spent face to face time with patient:: Yes Advanced Practice Provider documentation review:: Supervising physician onsite and consulted in the evaluation and care of this patient. The physician did have a face to face encounter with the patient. This chart was documented by the indicated scribe, (Mimi Martin Scribe) and accurately reflects the services I performed and decisions made by me, Dirk Hyman MD, as attested by the provider's signature.
[2019-06-11 16:07] LABS: INR 0.98; PROTIME 13.1 Seconds (11.0-16.0); PTT 30.7 Seconds (22.3-41.8)
[2019-06-11 16:08] LABS: BASO# 0.01 X1000 (0.0-0.2); BASO% 0.1 % (0.0-0.8); EOS# 0.01 X1000 (0.0-0.7); EOS% 0.1 % (0.0-10.0); HEMATOCRIT 41.2 % (37.0-47.0); HEMOGLOBIN 13.4 g/dL (12.0-16.0); IMM GRAN# 0.03 X1000 (0.0-0.04); IMM GRAN% 0.4 % (0.0-0.5); LYMPH# 1.16 X1000 (1.2-3.4); LYMPH% 15.2 % (20.5-51.1); MCH 26.1 PG (27-31); MCHC 32.5 g/dL (33-37); MCV 80.3 FL (81-99); MONO# 0.35 X1000 (0.11-0.59); MONO% 4.6 % (1.7-9.3); MPV 9.5 FL (7.4-10.4); NEUT# 6.07 X1000 (1.4-6.5); NEUT% 79.6 % (42.2-75.2); PLT 274 X1000 (130-400); RBC 5.13 XMIL (4.2-5.4); WBC 7.63 X1000 (4.8-10.8)
[2019-06-11 16:21] LABS: LARGE PLATELETS OCCASIONAL; LYMPHS 14 % (21-51); MONO 5 % (1-9); NRBC 1 % (0-0); SEGS 79 % (42-75)
[2019-06-11] MEDS ORDERED: DUONEB (A & A) INH SCH ×2 (17:00→19:30)
[2019-06-11 17:01] LABS: URINE SOURCE CATH
[2019-06-11 17:07] LABS: UR EPITHELIAL CELLS <10 /HPF (<10); URINE BACTERIA NEGATIVE /HPF; URINE RBC <10 /HPF (<10); URINE WBC <10 /HPF (<10)
[2019-06-11 17:26] LABS: BILIRUBIN URINE SMALL (NEGATIVE); BLOOD URINE NEGATIVE (NEGATIVE); COLOR YELLOW; GLUCOSE URINE NEGATIVE (NEGATIVE); KETONE URINE 60 mg/dL (NEGATIVE); LEUKOCYTES URINE NEGATIVE (NEGATIVE); NITRITE URINE NEGATIVE (NEGATIVE); PROTEIN URINE TRACE mg/dL (NEGATIVE); TURBIDITY URINE CLEAR (CLEAR); UROBILINOGEN URINE 2 mg/dL (NORMAL)
--- NOTE | 2019-06-11 18:32 | HISTORY AND PHYSICAL ---
CHIEF COMPLAINT: Shortness of breath. HISTORY OF PRESENT ILLNESS: Ms. Torres is a 78-year-old white female patient, not doing well the last 2 days, complaining of chest congestion, cough, shortness of breath, decreased exercise tolerance. The patient claims to have poor appetite. Her oral intake was poor, cough productive of yellowish thick sputum. She did have chest soreness when she coughed. She also had low-grade fever. The patient recently lost her . The patient did have some nausea but no vomiting. The patient had chest soreness when she coughed. She was getting short of breath with minimal exertion, generalized body ache. Because of her chest congestion, cough, shortness of breath, daughter called EMS, was brought to the emergency room, evaluated by ER physician. Her chest x- ray did reveal left lower lobe pneumonia and also questionable pneumonia in the right side. The patient was weak. She did have unquantified weight loss, and patient was admitted for further care. Her initial blood sugar was low. The patient denied any hemoptysis, no sore throat. The patient did have some headache, generalized body ache. No dysphagia or odynophagia. No typical chest pain, at times palpitations. Patient did have some epigastric pain, nausea but no vomiting. No diarrhea, blood, or mucus in the stool. No abdominal distention. Oral intake was poor. No dysuria or hematuria. No abdominal distention. No focal numbness, tingling, weakness. Unquantified weight loss. The patient was not sleeping well, at times nervous, anxious and depressed. No suicidal or homicidal ideation. Unquantified weight loss. No joint swelling or redness. The patient did have back pain. No further history available at this time. ALLERGIES: Propoxyphene, Cipro. PAST MEDICAL HISTORY: COPD, diabetes mellitus, gastritis, osteoporosis, hypertension, hyperlipidemia, history of radial bone fracture, hip fracture, dementia and depression. PERSONAL HISTORY: , nonsmoker. Denied alcohol or substance abuse. FAMILY HISTORY: Significant for diabetes, hypertension, hyperlipidemia, peripheral neuropathy. REVIEW OF SYSTEMS: As per HPI. Unquantified weight loss, history suggestive of gastritis, insomnia and depression. Otherwise unobtainable. CURRENT MEDICATIONS: Includes nebulizer treatment, calcium carbonate, vitamin D3, Lantus insulin, Ativan, Toprol-XL, Remeron, Zofran, Protonix, Zocor, trazodone. PHYSICAL EXAMINATION: GENERAL: Elderly white female patient in mild distress. VITAL SIGNS: Blood pressure 132/74, pulse 92, respirations 24, temperature 97.7 degrees. SKIN: Senile turgor. HEENT: Head atraumatic, normocephalic. [place] conjunctivae. Anicteric sclerae. Extraocular muscle movement normal. Fundus cannot be penetrated. Good oral hygiene. No tonsillopharyngeal congestion or exudate. Ears and nose benign. NECK: Supple. No JVD, thyromegaly or lymphadenopathy. CHEST: Bibasilar crepitation, occasional wheezing. CARDIOVASCULAR: S1 and S2 heard. No gallop or thrill. ABDOMEN: Soft, globular. Bowel sounds present. EXTREMITIES: No cyanosis, clubbing. No acute DVT. CENTRAL NERVOUS SYSTEM: Alert, awake, able to move all 4 limbs. LABORATORY DATA: Urinalysis was benign. Electrolytes did reveal mild hypokalemia. CO2 was 26, plasma lactate 1.7. Blood gas: pH 7.41, pCO2 45, pO2 was 75. CBC results reviewed. Chest x-ray revealed atelectasis versus bronchopneumonia. Patient's EKG also noted. CONSIDERATION: Bronchopneumonia, chronic obstructive pulmonary disease exacerbation, dementia, weakness, gastritis, osteoporosis, depression, hypertension, diabetes mellitus. PLAN: I am going to start the patient on steroid, IV antibiotics, pulmonary toilet, bronchodilator treatment. Continue home medicine. Overall plan discussed with the patient, and she is in agreement. cc: Sherif Olivares MD
[2019-06-11] MEDS: TYLENOL PO PRN (18:56)
[2019-06-11] MEDS ORDERED: SODIUM CHLORIDE 0.9% INJ ONE (19:23)
[2019-06-11] MEDS ORDERED: ZOFRAN ODT PO PRN (19:23)
[2019-06-11] MEDS: DUONEB (A & A) INH SCH ×2 (19:37→23:05)
[2019-06-11] MEDS ORDERED: POTASSIUM CHLORIDE 10 MEQ in NS 1,000 ML IV ONE ×2 (20:00→23:00)
[2019-06-11] MEDS: SOLU-MEDROL IV SCH (23:27)
[2019-06-11] MEDS: PROTONIX IV SCH (23:29)
[2019-06-11] MEDS: DESYREL PO SCH (23:29)
[2019-06-11] MEDS: REMERON PO SCH (23:30)
[2019-06-11] MEDS: TAMIFLU PO SCH (23:31)
[2019-06-11] MEDS: ATIVAN PO PRN (23:31)
[2019-06-11] MEDS: MOTRIN PO SCH (23:31)
[2019-06-11] MEDS: ZOCOR PO SCH (23:31)
[2019-06-12] MEDS: ZOSYN 3.375 GM in NS 50 ML IV SCH ×4 (01:02→22:20)
[2019-06-12] MEDS: DUONEB (A & A) INH SCH ×5 (03:08→19:27)
[2019-06-12] MEDS: MOTRIN PO SCH ×4 (04:02→22:23)
[2019-06-12] MEDS: SOLU-MEDROL IV SCH ×3 (04:15→22:25)
[2019-06-12] MEDS ORDERED: VANCOMYCIN IV PER PHARMACY MISC SCH (07:00)
--- NOTE | 2019-06-12 07:16 | PROGRESS NOTE ---
DATE: 06/12/2019 SUBJECTIVE: Ms. Torres is doing fair. The patient had generalized pain which is doing better. No high-grade fever or chills. Denied any nausea or vomiting. No diarrhea, blood, or mucus in the stool. The patient's flu test came back positive as influenza A. The patient was started on Tamiflu. The patient is on antibiotics for possible bronchopneumonia. OBJECTIVE: Vital signs: Noted. Neck: Supple. No JVD. Lungs: Bilateral good air entry present. Occasional wheezing. Cardiovascular: S1 and S2 heard. Abdomen: Soft, globular. Bowel sounds present. Extremities: No cyanosis, clubbing. No acute DVT. Central nervous system: Alert, awake, able to move all 4 limbs. LABORATORY DATA: Revealed flu test was positive. Electrolytes results reviewed. PLAN: Continue Tamiflu, broad-spectrum antibiotics. Her other problem includes diabetes, gastritis, history of dementia, chronic obstructive pulmonary disease. Overall plan discussed with the patient and she is in agreement. cc: Sherif Olivares MD
[2019-06-12 07:21] LABS: HEMATOCRIT 38.1 % (37.0-47.0); HEMOGLOBIN 12.2 g/dL (12.0-16.0); LYMPH# 0.36 X1000 (1.2-3.4); MCV 81.1 FL (81-99); MONO# 0.05 X1000 (0.11-0.59); MONO% 1.4 % (1.7-9.3); MPV 9.2 FL (7.4-10.4); NEUT% 88.6 % (42.2-75.2); PLT 237 X1000 (130-400); RDW 15.1 % (11.5-14.5); WBC 3.61 X1000 (4.8-10.8)
[2019-06-12 07:49] LABS: AGAP 17; ALB/GLOB RATIO 1.2; ALBUMIN 3.4 g/dL (3.5-5.0); ALKALINE PHOSPHATASE 68 U/L (32-104); BUN 10 mg/dL (8-22); CALCIUM 9.2 mg/dL (8.8-10.2); CHLORIDE 99 mmol/L (98-107); COSMO 289; CREATININE 0.7 mg/dL (0.5-0.9); ESTIMATED GFR > 60; GLUCOSE 214 mg/dL (70-104); GOT 18 U/L (10-30); GPT 10 U/L (10-36); MAGNESIUM 1.7 mg/dL (1.5-2.7); POTASSIUM 3.6 mmol/L (3.5-5.1); SODIUM 142 mmol/L (136-145); TCO2 26 mmol/L (25-35); TOTAL BILIRUBIN 0.31 mg/dL (0.20-1.00); TOTAL PROTEIN 6.3 g/dL (6.3-8.3)
[2019-06-12] MEDS ORDERED: LOVENOX SUBQ SCH (09:00)
[2019-06-12 09:21] LABS: LYMPHS 7 % (21-51); MONO 2 % (1-9); SEGS 91 % (42-75)
[2019-06-12] MEDS: NS + KCL 20 MEQ 1,000 ML IV SCH (09:21)
[2019-06-12] MEDS: LANTUS INSULIN SUBQ SCH (09:26)
[2019-06-12] MEDS: PROTONIX IV SCH (09:29)
[2019-06-12] MEDS: TOPROL XL PO SCH (09:29)
[2019-06-12] MEDS: NORCO-5 PO PRN ×2 (09:30→19:09)
[2019-06-12] MEDS: TAMIFLU PO SCH ×2 (09:30→22:23)
[2019-06-12] MEDS: ZOFRAN PO PRN ×2 (09:30→19:09)
--- NOTE | 2019-06-12 10:47 | EKG Report ---
Test Performed on : 06/12/2019 10:41:56 AM Test Reason : chest pain Blood Pressure : / mmHG Vent. Rate : 084 BPM Atrial Rate : 084 BPM P-R Int : 154 ms QRS Dur : 094 ms QT Int : 414 ms P-R-T Axes : 073 022 077 degrees QTc Int : 489 ms Normal sinus rhythm. Moderate voltage criteria for LVH, may be normal variant Cannot rule out Inferior infarct (cited on or before 11-JUN-2019) Abnormal ECG When compared with ECG of 11-JUN-2019 12:56, (Unconfirmed) No significant change was found Unconfirmed Result
[2019-06-12] MEDS ORDERED: MORPHINE IV ONE (11:09)
[2019-06-12] MEDS ORDERED: NITROGLYCERIN SL PRN (11:09)
[2019-06-12] MEDS: ATIVAN PO PRN ×2 (14:13→22:24)
[2019-06-12] MEDS: VANCOMYCIN 1 GM/NS 1 GM/250 ML IVPB IV SCH (17:39)
[2019-06-12] MEDS: REMERON PO SCH (22:23)
[2019-06-12] MEDS: DESYREL PO SCH (22:24)
[2019-06-12] MEDS: ZOCOR PO SCH (22:24)
[2019-06-13] MEDS: DUONEB (A & A) INH SCH ×7 (00:15→23:47)
[2019-06-13] MEDS: NORCO-5 PO PRN ×4 (01:33→23:12)
[2019-06-13] MEDS: SOLU-MEDROL IV SCH ×3 (04:03→20:36)
[2019-06-13] MEDS: NS + KCL 20 MEQ 1,000 ML IV SCH (04:03)
[2019-06-13] MEDS: MOTRIN PO SCH (04:03)
[2019-06-13] MEDS: ZOSYN 3.375 GM in NS 50 ML IV SCH ×3 (06:05→23:12)
[2019-06-13] MEDS ORDERED: SODIUM CHLORIDE 0.9% 10 ML ONE (06:25)
[2019-06-13] MEDS ORDERED: XANAX PO PRN (07:02)
--- NOTE | 2019-06-13 07:33 | PROGRESS NOTE ---
DATE: 06/13/2019 SUBJECTIVE: Ms. Torres is doing fair. The patient did have chest pain, sharp, yesterday. We did an EKG and cardiac isoenzymes, and those were negative. The patient is complaining of being anxious and nervous. She recently lost her . Requesting some nerve pill. Does feel weak all over. Oral intake seems to be getting better. Complaining of generalized achiness. OBJECTIVE: Her vital signs noted. Neck is supple. No JVD. Lungs: Bilateral good air entry present. Occasional wheezing. CVS: S1 and S2 heard. Abdomen: Soft, nontender. Bowel sounds present. TRAINING AND DEVELOPMENT DIRECTOR: Alert, awake. Able to move all 4 limbs. CONSIDERATION: The patient's problems include: 1. Influenza A. 2. Possible bronchopneumonia. 3. Diabetes mellitus. 4. The patient does have a history of dementia. 5. Situational anxiety. PLAN: I am going to check appropriate labs. Continue gentle hydration, pain management. I am going to add a small dose of anxiolytics. Overall plan discussed at length with the patient. I am going to get a social service consult for possible short-term rehab. cc: Sherif Olivares MD
[2019-06-13 07:36] LABS: AGAP 9; ALB/GLOB RATIO 1.3; ALBUMIN 3.5 g/dL (3.5-5.0); ALKALINE PHOSPHATASE 64 U/L (32-104); BUN 7 mg/dL (8-22); CHLORIDE 104 mmol/L (98-107); COSMO 287; CREATININE 0.7 mg/dL (0.5-0.9); ESTIMATED GFR > 60; GLUCOSE 273 mg/dL (70-104); GOT 13 U/L (10-30); GPT 10 U/L (10-36); MAGNESIUM 1.8 mg/dL (1.5-2.7); PHOSPHORUS 2.4 mg/dL (2.7-4.5); POTASSIUM 3.5 mmol/L (3.5-5.1); SODIUM 140 mmol/L (136-145); TCO2 27 mmol/L (25-35); TOTAL BILIRUBIN 0.16 mg/dL (0.20-1.00); TOTAL PROTEIN 6.1 g/dL (6.3-8.3)
[2019-06-13 07:50] LABS: HEMATOCRIT 35.2 % (37.0-47.0); HEMOGLOBIN 11.1 g/dL (12.0-16.0); IMM GRAN# 0.02 X1000 (0.0-0.04); IMM GRAN% 0.3 % (0.0-0.5); LYMPH# 0.25 X1000 (1.2-3.4); LYMPH% 3.2 % (20.5-51.1); MCH 25.9 PG (27-31); MCHC 31.5 g/dL (33-37); MCV 82.1 FL (81-99); MONO# 0.14 X1000 (0.11-0.59); MONO% 1.8 % (1.7-9.3); MPV 9.5 FL (7.4-10.4); NEUT% 94.7 % (42.2-75.2); PLT 247 X1000 (130-400); RBC 4.29 XMIL (4.2-5.4); RDW 15.3 % (11.5-14.5); WBC 7.91 X1000 (4.8-10.8)
[2019-06-13 08:09] LABS: BANDS 2 % (0-1); LYMPHS 4 % (21-51); SEGS 94 % (42-75)
[2019-06-13] MEDS: ATIVAN PO PRN ×2 (08:30→16:01)
[2019-06-13] MEDS: ZOFRAN PO PRN ×3 (09:32→23:12)
[2019-06-13] MEDS: TYLENOL PO PRN ×2 (09:33→16:01)
[2019-06-13] MEDS: PROTONIX IV SCH (09:33)
[2019-06-13] MEDS: TAMIFLU PO SCH ×2 (09:33→20:36)
[2019-06-13] MEDS: TOPROL XL PO SCH (09:33)
[2019-06-13] MEDS: LANTUS INSULIN SUBQ SCH (09:34)
[2019-06-13] MEDS: VANCOMYCIN 1 GM/NS 1 GM/250 ML IVPB IV SCH (17:31)
[2019-06-13] MEDS: REMERON PO SCH (20:35)
[2019-06-13] MEDS: DESYREL PO SCH (20:36)
[2019-06-13] MEDS: ZOCOR PO SCH (20:36)
[2019-06-14] MEDS: DUONEB (A & A) INH SCH ×6 (03:25→23:31)
[2019-06-14] MEDS ORDERED: CALMOSEPTINE OINTMENT TOP PRN (06:10)
[2019-06-14] MEDS: NORCO-5 PO PRN ×2 (06:11→12:08)
[2019-06-14] MEDS: SOLU-MEDROL IV SCH ×2 (06:11→12:09)
[2019-06-14] MEDS: ATIVAN PO PRN ×3 (06:11→17:58)
[2019-06-14] MEDS ORDERED: SODIUM CHLORIDE 0.9% 10 ML ONE (06:37)
[2019-06-14] MEDS: ZOSYN 3.375 GM in NS 50 ML IV SCH ×3 (09:31→23:01)
[2019-06-14] MEDS: TAMIFLU PO SCH ×2 (09:31→22:41)
[2019-06-14] MEDS: PROTONIX IV SCH (09:31)
[2019-06-14] MEDS: TOPROL XL PO SCH (09:31)
[2019-06-14] MEDS: LANTUS INSULIN SUBQ SCH (09:32)
[2019-06-14] MEDS: ZOFRAN PO PRN (10:24)
[2019-06-14] MEDS ORDERED: ATIVAN PO PRN (14:34)
[2019-06-14] MEDS ORDERED: PREDNISONE PO ONE (14:39)
--- NOTE | 2019-06-14 15:25 | Diag Imaging Result Doc PS360 ---
EXAM: CHEST-PORTABLE 06/14/2019 HISTORY: sob TECHNIQUE: Erect AP portable at 1501 COMMENT: There is a left pleural effusion. This was not present on 06/11/2019. There is some apparent atelectasis in the left base. IMPRESSION: Left pleural effusion and basilar atelectasis versus pneumonia. Electronically signed by Javier England 06/14/2019 3:23 PM
[2019-06-14] MEDS: NORCO-7.5 PO PRN (17:58)
--- NOTE | 2019-06-14 17:59 | PROGRESS NOTE ---
DATE: 06/14/2019 SUBJECTIVE: Ms Paz is doing better. The patient was complaining of diarrhea. We did check stool for C. difficile toxin and WBC and results reviewed. The patient was complaining of being nervous, generalized pain. Patient claims she was not able to rest well. No high-grade fever or chills. No typical chest pain or palpitations. Patient claims [place] 5 was not helping her pain. She recently lost her . OBJECTIVE: Vital signs: Noted. Neck: Supple. No JVD. Lungs: Bibasilar crepitations. Heart: S1 and S2 heard. Abdomen: Soft. No distention. Bowel sounds present. Extremities: No cyanosis, clubbing. No acute DVT. ROCK WOOL INSULATOR: Alert, awake. Able to move all 4 limbs. LABORATORY DATA: Noted. CONSIDERATION AND PLAN: Patient admitted with influenza. Chest x-ray revealed bronchopneumonia. I am going to repeat chest x-ray today. Her other problems includes anxiety and chronic pain. The patient does have hypertension, diabetes mellitus, hyperlipidemia. I am going to check appropriate labs. Continue current treatment and close observation. cc: Sherif Olivares MD
[2019-06-14] MEDS ORDERED: VANCOMYCIN 1.5 GM in NS 250 ML IV SCH (20:00)
[2019-06-14] MEDS: REMERON PO SCH (22:39)
[2019-06-14] MEDS: DESYREL PO SCH (22:41)
[2019-06-14] MEDS: ZOCOR PO SCH (22:41)
[2019-06-15] MEDS: ATIVAN PO PRN ×3 (00:38→15:24)
[2019-06-15] MEDS: NORCO-7.5 PO PRN ×3 (00:38→13:35)
[2019-06-15] MEDS: DUONEB (A & A) INH SCH ×4 (03:35→15:39)
[2019-06-15 07:55] LABS: EOS# 0.01 X1000 (0.0-0.7); EOS% 0.1 % (0.0-10.0); HEMATOCRIT 37.7 % (37.0-47.0); HEMOGLOBIN 11.8 g/dL (12.0-16.0); IMM GRAN# 0.02 X1000 (0.0-0.04); IMM GRAN% 0.3 % (0.0-0.5); LYMPH# 1.29 X1000 (1.2-3.4); MCH 25.9 PG (27-31); MCHC 31.3 g/dL (33-37); MCV 82.9 FL (81-99); MONO# 0.64 X1000 (0.11-0.59); MONO% 9.4 % (1.7-9.3); MPV 9.7 FL (7.4-10.4); NEUT# 4.84 X1000 (1.4-6.5); NEUT% 71.2 % (42.2-75.2); PLT 233 X1000 (130-400); RBC 4.55 XMIL (4.2-5.4)
[2019-06-15 08:08] LABS: AGAP 15; ALB/GLOB RATIO 1.5; ALBUMIN 3.7 g/dL (3.5-5.0); ALKALINE PHOSPHATASE 58 U/L (32-104); BUN 12 mg/dL (8-22); CALCIUM 9.4 mg/dL (8.8-10.2); CHLORIDE 100 mmol/L (98-107); COSMO 288; CREATININE 0.6 mg/dL (0.5-0.9); ESTIMATED GFR > 60; GLUCOSE 87 mg/dL (70-104); GOT 15 U/L (10-30); GPT 10 U/L (10-36); SODIUM 145 mmol/L (136-145); TCO2 30 mmol/L (25-35); TOTAL BILIRUBIN 0.22 mg/dL (0.20-1.00); TOTAL PROTEIN 6.2 g/dL (6.3-8.3)
[2019-06-15] MEDS ORDERED: PREDNISONE PO SCH (09:00)
[2019-06-15] MEDS: TOPROL XL PO SCH (09:20)
[2019-06-15] MEDS: ZOFRAN PO PRN ×2 (09:20→15:24)
[2019-06-15] MEDS: TAMIFLU PO SCH (09:20)
[2019-06-15] MEDS: ZOSYN 3.375 GM in NS 50 ML IV SCH ×2 (09:23→15:25)
[2019-06-15] MEDS: LANTUS INSULIN SUBQ SCH (09:23)
[2019-06-15] MEDS: PROTONIX IV SCH (09:23)
--- NOTE | 2019-06-15 09:57 | PROGRESS NOTE ---
DATE: 06/15/2019 SUBJECTIVE: Ms. Torres is doing fairly well. Now she is complaining of generalized pain, being nervous. Clinically she does look much better. No high-grade fever or chills. Oral intake is fair. I did a chest x-ray yesterday which reported to be left pleural effusion. Basilar atelectasis versus pneumonia clinically. She act more like atelectasis than pneumonia. She had diarrhea yesterday we did stool workup and it was unremarkable for Clostridium difficile colitis. The patient does have a tendency for pain medication and also nerve medicine. I offered her to go to Geropsych unit for further evaluation. The patient declined. I left a message for the daughter to call me in. OBJECTIVE: Her vital signs noted.Neck: Supple. No JVD. Lungs: Bilateral good air entry present. CVS: S1 and S2 heard. Abdomen: Soft, nontender. Bowel sounds present. Extremities: No cyanosis, clubbing. No acute DVT. TUMBLING INSTRUCTOR: Alert, awake. Able to move all 4 limbs. IMPRESSION/PLAN: Clinically the patient seems to be doing much better. I am going to check appropriate labs. Gave her a small dose of Lasix. Continue the rest of the treatment. Close observation. If clinical condition permits, will plan discharging patient home soon. PROBLEMS: Her problems includes influenza A, possible pneumonia and atelectasis. Patient does have diabetes, gastritis, osteoporosis, dementia. cc: Sherif Olivares MD
[2019-06-15 15:44] VITALS: BP 168/85
[2019-06-15] MEDS ORDERED: KLOR-CON PO ONE (16:21)
[2019-06-15] MEDS: FLU VACCINE IM ONE ×2 (17:06→17:09)
--- NOTE | 2019-06-16 15:16 | DISCHARGE SUMMARY ---
ADMISSION DATE: 06/11/2019 DISCHARGE DATE: 06/15/2019 FINAL DISCHARGE DIAGNOSES: 1. Bronchopneumonia. 2. Influenza A. 3. Chronic obstructive pulmonary disease. 4. Chronic respiratory failure. 5. Anxiety and depression. 6. Dementia. 7. Gastritis. 8. Osteoporosis. 9. Diabetes mellitus. 10. Hypertension. HISTORY OF PRESENT ILLNESS: Ms. Torres is a 78-year-old white female patient admitted with chest congestion, cough, generalized body aches, fever. The patient was also short of breath. Chest x- ray in the ER revealed possible bronchopneumonia. Initial consideration was COPD exacerbation. Her flu test came back positive for influenza A. The patient was admitted to telemetry bed on isolation. She was started on Tamiflu IV antibiotics, pulmonary toilet, IV steroid. Her clinical condition gradually improved and stabilized. The patient was doing better. When she got better, she started complaining of pain, being nervous and anxious, asking for nerve medicine. I offered her to go to geropsych unit. The patient declined. We offered her short-term rehab. The patient declined. The only place she [facility] to [facility] to was [facility], and her insurance will not approve. Then, patient agreed to go home with home health. The patient does have kind of manipulative personality. Patient is doing better. In the afternoon, the patient claims she is ready to go home. Nurse called me and I told them I will come and discharge her. The patient is always asking either for some Ativan or pain medicine. VITAL SIGNS: Noted. Neck: Supple. No JVD. Lungs: Bilateral good air entry present. CVS: S1 and S2 heard. Abdomen: Soft, nontender. Bowel sounds present. SCIENTIFIC PUBLICATIONS EDITOR: Alert, awake, able to move all 4 limbs. LABORATORY DATA: Done today revealed mild hypokalemia, otherwise benign. CBC was normal. Chest x-ray, atelectasis. Clinically does not sound like pneumonia. Flu test was influenza A. Chest x- ray results reviewed. DISPOSITION: I am going to give her a few Ativan and [place] for pain. Continue rest of the medicine, tapering dose of prednisone. We will get her home health. Discussed her condition with daughter at length. Follow up with me in 10 days. In case of more distress, call us back or go to the emergency room. Overall discharge condition satisfactory. Fall precaution. Continue home oxygen and nebulizer treatment. Encourage oral feeding. Gave her 2 tablets of Tamiflu to finish the course. cc: Sherif Olivares MD
== END 2019-06-15 18:13 | disposition home health service (06) | DRG 190 ==
LOC: SUPCPDRO → ED 12:27 → 3N 17:40
PROVIDERS: ADMIT Internal Medicine; ATTEND Internal Medicine

== ENCOUNTER 2019-09-19 16:29 | Observation (INO) ==
[2019-09-19] MEDS ORDERED: NS 1,000 ML IV SCH (17:00)
[2019-09-19] MEDS ORDERED: CLINIMIX E 4.25%-5% SOLUTION 1,000 ML IV SCH (17:30)
[2019-09-19 17:53] LABS: HEMATOCRIT 40.9 % (37.0-47.0); HEMOGLOBIN 12.9 g/dL (12.0-16.0); MCH 26.5 PG (27-31); MCHC 31.5 g/dL (33-37); MCV 84.2 FL (81-99); MPV 10.4 FL (7.4-10.4); RBC 4.86 XMIL (4.2-5.4); WBC 5.19 X1000 (4.8-10.8)
--- NOTE | 2019-09-19 18:06 | Diag Imaging Result Doc PS360 ---
EXAM: ABDOMEN FLAT/UPRIGHT HISTORY: DEHYDRATION TECHNIQUE: Two views COMPARISON: 08/07/2019 FINDINGS: No free air beneath the diaphragm. No organomegaly. No bowel obstruction. There is stool throughout the colon. The calcifications in the lower right abdomen. Recent CT demonstrates stones in the gallbladder. Moderate atherosclerosis. Old L1 compression fracture. IMPRESSION: 1.Cholelithiasis 2.Constipation Electronically signed by Nikolas Ruelas 09/19/2019 6:04 PM
[2019-09-19 18:10] LABS: AGAP 13; ALB/GLOB RATIO 1.4; ALBUMIN 4.2 g/dL (3.5-5.0); ALKALINE PHOSPHATASE 73 U/L (32-104); AMYLASE 90 U/L (20-200); BUN 10 mg/dL (8-22); CALCIUM 10.2 mg/dL (8.8-10.2); CHLORIDE 97 mmol/L (98-107); COSMO 281; CREATININE 0.9 mg/dL (0.5-0.9); ESTIMATED GFR > 60; GLUCOSE 116 mg/dL (70-104); GOT 25 U/L (10-30); GPT 18 U/L (10-36); LIPASE 49 U/L (13-60); POTASSIUM 3.5 mmol/L (3.5-5.1); SODIUM 141 mmol/L (136-145); TCO2 31 mmol/L (25-35); TOTAL BILIRUBIN 0.29 mg/dL (0.20-1.00); TOTAL PROTEIN 7.2 g/dL (6.3-8.3)
[2019-09-19 19:03] LABS: URINE SOURCE VOIDED
[2019-09-19 19:07] LABS: BILIRUBIN URINE NEGATIVE (NEGATIVE); BLOOD URINE NEGATIVE (NEGATIVE); COLOR STRAW; GLUCOSE URINE NEGATIVE (NEGATIVE); KETONE URINE NEGATIVE (NEGATIVE); LEUKOCYTES URINE NEGATIVE (NEGATIVE); NITRITE URINE NEGATIVE (NEGATIVE); PROTEIN URINE NEGATIVE (NEGATIVE); SP GRAVITY URINE 1.009; TURBIDITY URINE CLEAR (CLEAR); UR EPITHELIAL CELLS <10 /HPF (<10); URINE BACTERIA NEGATIVE /HPF; URINE RBC <10 /HPF (<10); URINE WBC <10 /HPF (<10); UROBILINOGEN URINE NORMAL (NORMAL)
[2019-09-19 19:19] LABS: UR AMPHETAMINES QUAL NONE DETECTED (NONE DETECT); UR BARBITUATES QUAL NONE DETECTED (NONE DETECT); UR BENZODIAZEPIN QUAL NONE DETECTED (NONE DETECT); UR CANNABINOIDS QUAL NONE DETECTED (NONE DETECT); UR COCAINE QUAL NONE DETECTED (NONE DETECT); UR METHADONE QUAL NONE DETECTED (NONE DETECT); UR OPIATES QUAL NONE DETECTED (NONE DETECT); UR OXYCODONE QUAL PRESUMPTIVE POSITIVE (NONE DETECT); UR PCP QUAL NONE DETECTED (NONE DETECT)
[2019-09-19] MEDS ORDERED: DUONEB (A & A) INH SCH (19:30)
[2019-09-19] MEDS: DUONEB (A & A) INH SCH (20:01)
[2019-09-19] MEDS: ZOFRAN IV PRN (20:53)
[2019-09-19] MEDS: NAMENDA PO SCH (20:54)
[2019-09-19] MEDS: KLONOPIN PO SCH (20:54)
[2019-09-19] MEDS ORDERED: ARICEPT PO SCH (21:00)
[2019-09-19] MEDS ORDERED: DESYREL PO SCH (21:00)
[2019-09-19] MEDS ORDERED: CYMBALTA PO SCH (21:00)
[2019-09-19] MEDS ORDERED: REMERON PO SCH (21:00)
[2019-09-19] MEDS ORDERED: ZOCOR PO SCH (21:00)
[2019-09-19] MEDS: TYLENOL PO PRN (21:08)
--- NOTE | 2019-09-19 22:09 | HISTORY AND PHYSICAL ---
CHIEF COMPLAINT: Nausea, vomiting, abdominal pain. HISTORY OF PRESENT ILLNESS: Ms. Torres is a 78-year-old female patient, not doing well for the last 7 to 10 days. Patient claims she does have nausea and vomiting off and on. The last 3 days, the patient claims she vomited multiple times. Last night, according to patient and daughter, she vomited persistently and also the this morning 3 times. The patient also has diarrhea and loose bowel movement off and on. She denied any blood or mucus in the stool. No hematemesis or melena. Complaining of vague, diffuse abdominal pain. Her oral intake was poor. The patient had unquantified weight loss. No high-grade fever, occasional chills. The patient came to the office for evaluation. I did refer her to drying supervisor. She had upper GI endoscope done and it did show peptic ulcer disease. Ampoule Filler decided not to do colonoscopy. The patient is on proton pump inhibitor. Ampoule Filler order CT scan of the abdomen which did reveal gallstone. Patient is very vague and poor historian. I did refer patient to surgeon as she wanted to have her gallstone taken care. Does have chronic cough with scanty sputum production. The patient does have advanced COPD on home oxygen and nebulizer treatment and chronic respiratory failure. The patient does feel depressed, at times anxious. The patient is being followed up by psychiatrist on anti anxiety medication. No dysphagia or odynophagia. Denied any bleeding per rectum. The patient does feel depressed. She lost her last year and also lost her older daughter. The patient is living with her daughter. Denied smoking. Does have chronic pain at times. Complaining of headache. No blurred vision. Blood sugar doing fair. No major hypoglycemic episode. The patient does feel fatigued and tired. Needs minimal assistance in activities of daily living. ALLERGIES: Propoxyphene and Cipro. PAST MEDICAL HISTORY: Diabetes mellitus on insulin, hypertension, hyperlipidemia, osteoporosis, anxiety and depression related to her medical condition, gastritis and reflux disease, dementia, osteoarthritis, history of hip fracture and wrist fracture. SOCIAL HISTORY: . Lives with the daughter. Nonsmoker. Denied alcohol or substance abuse. FAMILY HISTORY: Noncontributory. PHYSICAL EXAMINATION: GENERAL: Elderly, white female patient in mild distress. The rest from the chart. VITAL SIGNS: Blood pressure 154/70, pulse 73, respirations 20, temperature 97.1 degrees. SKIN: No rash or petechiae. Senile turgor. HEENT: Head atraumatic, normocephalic. [address] conjunctivae. Anicteric sclerae. Extraocular muscle movement normal. Fundus cannot be penetrated. Good oral hygiene. No tonsillopharyngeal congestion or exudate. Ears and nose benign. NECK: Supple. No JVD, thyromegaly or lymphadenopathy. CHEST: Bilateral good air entry present. Bibasilar crepitation. Occasional wheezing. CARDIOVASCULAR: S1 and S2 heard. No gallop or thrill. ABDOMEN: Soft. No distention. Bowel sounds present. Mild nonspecific tenderness. No guarding or rigidity. EXTREMITIES: No cyanosis, clubbing. No acute DVT. FOAM RUBBER MOLDER: Alert, awake. Able to move all 4 limbs. LABORATORY DATA: Revealed hemoglobin 12.9, hematocrit 40.9, platelet count 152,000. WBC count 5.19. Her potassium was 3.5, blood sugar 116. The rest of the urinalysis was benign. I did urine drug screen which was positive for oxycodone. The patient denied taking any narcotic analgesics. CONSIDERATION: Nausea, vomiting, diarrhea. The patient also had gallstone on CT scan. I am going to get abdominal ultrasound and HIDA scan for further evaluation. With her poor oral intake, I am going to start her on Clinimix. Discuss about surgical evaluation and surgery. Patient seems to be in agreement. Discussed about her high risk for anesthesia, surgery and postoperative complication. The patient understood. After reviewing initial evaluation, I will talk to patient again. Her other problem includes diabetes, chronic obstructive pulmonary disease and chronic respiratory failure, mild dementia, gastritis, osteoporosis. PLAN: Overall plan discussed at length with the patient and she is in agreement. cc: Sherif Olivares MD
[2019-09-20] MEDS: DUONEB (A & A) INH SCH ×4 (00:54→15:14)
[2019-09-20] MEDS: HUMALOG SUBQ SCH ×4 (00:56→16:42)
[2019-09-20] MEDS ORDERED: LOVENOX SUBQ SCH (06:00)
[2019-09-20] MEDS ORDERED: PROTONIX PO SCH (07:00)
[2019-09-20] MEDS ORDERED: TOPROL XL PO SCH (09:00)
--- NOTE | 2019-09-20 09:11 | Diag Imaging Result Doc PS360 ---
HIDA SCAN W/ EJECTION FRACTION - 09/19/2019 INDICATION: gallstone COMPARISON: CT from 09/01/2019 FINDINGS: 5.4 millicuries of Choletec was administered. There is normal uptake and clearance by the liver. There is normal excretion into the gallbladder and small bowel. A fatty meal was given. The gallbladder ejection fraction is 57%. IMPRESSION: Negative exam. An abnormally low ejection fraction (less than 35%) can be present in patients without gallbladder dyskinesis or chronic cholelithiasis to have other medical conditions. These include but are not limited to, patients with diabetic mellitus, irritable bowel syndrome, , gastroenteritis. peptic ulcer disease, and patients receiving morphine or nifedipine. Electronically signed by Matthew Blue 09/20/2019 9:09 AM
[2019-09-20] MEDS: TYLENOL PO PRN ×2 (09:42→15:12)
[2019-09-20] MEDS: KLONOPIN PO SCH (09:42)
[2019-09-20] MEDS: NAMENDA PO SCH (09:42)
[2019-09-20] MEDS: LANTUS INSULIN SUBQ SCH ×2 (09:45→11:53)
--- NOTE | 2019-09-20 11:14 | Diag Imaging Result Doc PS360 ---
EXAM: US ABDOMEN-COMPLETE INDICATION: Abdominal Pain COMPARISON: 07/11/2015 FINDINGS: There are several shadowing stones layering in the gallbladder lumen. No gallbladder wall thickening or pericholecystic fluid is appreciated. The common bile duct is normal in diameter. The liver is grossly unremarkable. Portal venous flow is hepatopetal. The visualized pancreas is unremarkable. The aorta and IVC are grossly unremarkable. The spleen very mildly prominent measuring up to 13.2 cm in length. There is a 1.4 cm simple cyst at the upper pole of the left kidney. There is a 1 cm intrarenal stone on the right. The kidneys are unremarkable, otherwise. IMPRESSION: 1.Cholelithiasis. 2.Slightly prominent spleen. 3.Nonobstructing intrarenal stone on the right. Electronically signed by Truong Tripp 09/20/2019 11:12 AM
[2019-09-20] MEDS: ZOFRAN IV PRN (15:07)
[2019-09-20] MEDS ORDERED: EMLA CREAM TOP PRN (15:33)
[2019-09-20 16:28] VITALS: BP 146/53
--- NOTE | 2019-09-21 19:11 | DISCHARGE SUMMARY ---
ADMISSION DATE: 09/19/2019 DISCHARGE DATE: 09/20/2019 Ms. Torres is a 78-year-old female patient, not doing well for last many days. The patient had nausea, vomiting, and diarrhea. Oral intake was poor. Unquantified weight loss. Vague abdominal pain. The patient had history of gallstones. No high-grade fever. The patient did have chills. The patient does have other multiple medical problems, as discussed in history and physical. HOSPITAL COURSE: Patient was admitted to telemetry bed. Started on Clinimix because of her weight loss and poor appetite and oral intake. Her clinical condition remained stable. I did ultrasound which did reveal gallstone, slightly prominent spleen, non obstructing infrarenal stone on the right. I did HIDA scan which was basically negative exam. Patient had CT scan of the abdomen and pelvis done a few weeks ago when she went to see does lace pinner. The patient tolerated Clinimix well .her oral intake in the hospital was very well. She did not have any nausea or vomiting. The patient had one episode of soft stool during her hospital stay for 24 hours. Her Accu-Chek results reviewed. Considering normal ejection fraction on HIDA scan, no evidence of acute cholecystitis, I decided to get her cholecystectomy as an outpatient. Her vital signs noted. Neck is supple. No JVD. Lungs: Bibasilar crepitations. Heart: S1 and S2 heard. A 2/6 systolic murmur at the apex. Abdomen: Soft. Nontender. Bowel sounds present. Extremities: No cyanosis, clubbing. No acute DVT. STRAIGHT KNIFE CUTTER MACHINE: Alert, awake able to move all 4 limbs. LABORATORY DATA: Revealed hemoglobin 12.9, hematocrit 40.9, WBC count 5.19, platelet count 152,000. Electrolytes were fairly benign. Urinalysis was negative. Urine drug screen was positive for oxycodone. The patient declined taking any narcotic analgesics. Overall, patient is doing better. Clinical condition stable to be discharged. I am very skeptical about her history of persistent nausea, vomiting and diarrhea. Here patient ate a good lunch and she was eating supper when ID evaluated her in the evening. I am planning to discharge her home today. Small frequent meals. Continue home medicine. We will refer her to surgeon as an outpatient. I encouraged patient not to take any controlled substance from any of the family members. FINAL DISCHARGE DIAGNOSIS: 1. Abdominal pain, nausea, vomiting. 2. Diabetes mellitus. 3. Chronic obstructive pulmonary disease. 4. Gastritis. 5. Urinary tract infection. cc: Sherif Olivares MD
== END 2019-09-20 18:08 | disposition home or self-care (01) ==
LOC: DIRADM → 4N 16:29
PROVIDERS: ADMIT Internal Medicine; ATTEND Internal Medicine